=== PATIENT | male | born 1950 | race Caucasian/White ===

== ENCOUNTER 2018-11-06 05:34 | Inpatient (IN) | payer BC ==
[~2018-11-06 05:34] MED LIST: BACITRACIN 15 GM TUBE TOPICAL OINTMENT TP ONE
[2018-11-06] MEDS ORDERED: MIDAZOLAM HCL 2 MG/2 ML SINGLE DOSE VIAL ONE ×2 (08:12)
[2018-11-06] MEDS ORDERED: ROCURONIUM BROMIDE 50 MG/5 ML VIAL ONE (08:22)
[2018-11-06] MEDS ORDERED: fentaNYL CITRATE 250 MCG/5 ML VIAL ONE (08:22)
[2018-11-06] MEDS ORDERED: PROPOFOL 20 ML ONE ×14 (08:27→11:31)
[2018-11-06] MEDS ORDERED: ceFAZolin SODIUM 1 GM VIAL IVPB ONE (08:35)
[2018-11-06] MEDS ORDERED: BACITRACIN 50,000 UNITS VIAL TP ONE (09:00)
[2018-11-06] MEDS ORDERED: THROMBIN (BOVINE) 5,000 UNIT VIAL TP ONE ×2 (09:00→09:04)
[2018-11-06] MEDS ORDERED: BACITRACIN 50,000 UNITS VIAL NR ONE (09:04)
[2018-11-06] MEDS ORDERED: BACITRACIN 15 GM TUBE TOPICAL OINTMENT TP ONE ×2 (10:14→12:12)
[2018-11-06] MEDS ORDERED: BACITRACIN 15 GM TUBE TOPICAL OINTMENT ONE (11:38)
--- NOTE | 2018-11-06 12:17 | OP ---
Operative Note - Note: Operative Date: 11/06/18 Pre-Operative Diagnosis: L3-4 instability, stenosis, postlaminectomy syndrome, prior L4-5 fusion Operation: Redo and expansion of laminectomies L5, L4, L3 bilaterally; takedown of prior L4-5 posterolateral fusion; harvest of autologous bone grafts ; posterior lumbar interbody and posterolateral fusion L3-4; B L3-4 11 mm interbody implants; posterolateral fusion L4-5; revomal of locking screws and rods and R L4 pedicle screw; new L3 B pedicle screws and new B 60 mm rods and locking screws; fluoroscopy for pedicle screw system placement; microdissection Findings: dense epidural fibrosis; marked L3-4 stenosis; sensitive B L4 roots; instability L3-4 Implants: [employer] Gayla-4.5 titanium system; 6.5 x 50 mm screws B L3, new B 60 mm rods; B 11x25 mm interbody implants; autologous laminar bone graft Surgeon: Willian Grant [facility] Farmworker: Erasmo Downing Anesthesiologist/LENS MAKER: Simin Silva MD Anesthesia: General Specimens Removed: L3-4 disc material Estimated Blood Loss (mls): 250 Drains & Tubes with Location: #10 BOB
[2018-11-06] MEDS ORDERED: BISACODYL 10 MG SUPP.RECT RC PRN (12:18)
[2018-11-06] MEDS ORDERED: ONDANSETRON 4 MG/2 ML VIAL IVPUSH PRN ×3 (12:18→12:58)
[2018-11-06] MEDS ORDERED: D5-1/2NS+20 MEQ KCL - 20 MEQ/1,000 ML INFUS.BAG IV SCH (12:30)
[2018-11-06] MEDS ORDERED: DEXAMETHASONE SOD PHOSPHATE 4 MG/1 ML VIAL IVPUSH PRN (12:58)
[2018-11-06] MEDS ORDERED: PROMETHAZINE HCL 25 MG/1 ML VIAL IVPB PRN (12:58)
[2018-11-06] MEDS ORDERED: LACTATED RINGERS SOLUTION 1,000 ML IV SCH (13:00)
--- NOTE | 2018-11-06 13:00 | PN ---
Progress Note (short form) - Note Progress Note: NEUROSURGERY In PACU AF, VSS Urine cloudy Drain with minimal output Incisional pain CV- RR; Lungs- CTA; Abd- benign B UE/LE at least 4/5 Dressing intact VALUE STREAM LEADER for pain Urine culture Findings and pt progress d/w
[2018-11-06] MEDS ORDERED: HYDROmorphone HCl 2 MG/ML VIAL ONE (13:04)
[2018-11-06] MEDS: HYDROmorphone *PCA* 10MG/50ML DISP.SYRIN PCA SCH ×2 (13:30→17:03)
[2018-11-06 14:55] LABS: HEMATOCRIT 33.6 % (35.4-49); HEMOGLOBIN 11.3 GM/dL (11.7-16.9); MCH 34.9 pg (25.7-33.7); MCHC 33.7 g/dl (32.0-35.9); MEAN CELL VOLUME 103.8 fl (80-96); MEAN PLT VOLUME 7.7 fl (7.5-11.1); PLATELET COUNT 189 K/MM3 (134-434); RBC 3.24 M/mm3 (4.00-5.60); RDW 12.9 % (11.9-15.9); WHITE BLOOD COUNT 5.7 K/mm3 (4.0-10.0)
[2018-11-06] MEDS: diazePAM 5 MG TABLET PO SCH ×2 (15:05→20:00)
[2018-11-06 15:12] LABS: ANION GAP 8 MMOL/L (8-16); BLOOD UREA NITROGEN 5 mg/dL (7-18); CALCIUM 8.4 mg/dL (8.5-10.1); CHLORIDE 99 mmol/L (98-107); CO2 29 mmol/L (21-32); CREATININE 0.6 mg/dL (0.55-1.3); GLUCOSE,RANDOM 118 mg/dL (74-106); POTASSIUM 3.7 mmol/L (3.5-5.1); SODIUM 136 mmol/L (136-145)
[2018-11-06] MEDS: D5-1/2NS+20 MEQ KCL - 20 MEQ/1,000 ML INFUS.BAG IV SCH (17:02)
[2018-11-06] MEDS: DOCUSATE SODIUM 100 MG CAPSULE (FP) PO SCH ×2 (17:02→23:05)
[2018-11-06] MEDS: CEFAZOLIN 1 GM/D5W 1 GM/50 ML BAG IVPB SCH (17:35)
[2018-11-06] MEDS: metoPROLOL SUCCINATE 25 MG TAB.SR.24H (FP) PO SCH (23:05)
[2018-11-07] MEDS: CEFAZOLIN 1 GM/D5W 1 GM/50 ML BAG IVPB SCH ×4 (02:12→17:33)
[2018-11-07] MEDS: diazePAM 5 MG TABLET PO SCH ×3 (04:30→23:17)
[2018-11-07] MEDS: DOCUSATE SODIUM 100 MG CAPSULE (FP) PO SCH ×3 (05:49→23:16)
[2018-11-07] MEDS ORDERED: PT OWN MED DRAWER 7, Y5N ONE (08:57)
--- NOTE | 2018-11-07 09:02 | OP ---
DATE OF OPERATION: 11/06/2018 PREOPERATIVE DIAGNOSES: 1. Prior L4-L5 fusion. 2. L3-L4 marked stenosis with spinal instability. 3. Intractable bilateral lumbar radiculopathy. POSTOPERATIVE DIAGNOSES: 1. Prior L4-L5 fusion. 2. L3-L4 marked stenosis with spinal instability. 3. Intractable bilateral lumbar radiculopathy. ATTENDING SURGEON: Willian Grant MD ASSISTANTS: 1. Milka Lewis MD 2. JERMAN Olsen ANESTHESIA: General endotracheal. ANESTHESIOLOGIST: Simin Silva MD ESTIMATED BLOOD LOSS: 250 mL. PROCEDURES PERFORMED: 1. Redo and expansion of prior laminectomies bilaterally at L5, L4 and L3, for thecal sac as well as bilateral L5, L4 and L3 nerve root decompression (71425-56 , 20983-94 and 97553-70). 2. [place] autologous laminar spinous process bone for posterolateral fusion and interbody fusion (59226). 3. Microsurgical dissection with the operative microscope and microsurgical technique (90126). 4. Posterior lumbar diskectomy L3-L4. 5. Posterolateral interbody fusion at L3-L4 (62127). 6. Removal of posterior lumbar pedicle screw fixation system (48176). 7. Redo of posterior L4-L5 posterolateral fusion after takedown of prior fusion mass (94083-22). 8. New posterior lumbar pedicle screw fixation system placement with 6.5 x 50- mm screws from [employer] (Gayla-4.5 titanium system with 6.5 x 50-mm screws at L3 bilaterally, new 60-mm rods from L3 to L5 and new locking screws and removal of right L4 pedicle screw). (52746) 9. Intraoperative fluoroscopy for localization and pedicle screw placement (47488-06). 10. Utilization of intervertebral 11 x 25-mm device from [employer] (07579) . FINDINGS: 1. Dense epidural fibrosis. 2. Irritable bilateral L4 nerve root. 3. Highly unstable L3-L4 segment. INDICATIONS: The patient is a 68-year-old male with intractable lower back pain and bilateral lumbar radiculopathy. Because of his intractable symptoms and failure of conservative treatment, he is now consented for lumbar decompression and fusion at L3-L4 level. He had previously undergone lumbar fusion at L4-L5 approximately 5 years earlier, with a good result. He now has stenosis at the L3-L4 level, with associated instability. CONSENT: The risks of the procedure include but are not limited to bleeding, infection, dural tear with CSF leak, neurological injury, increased thromboembolic risks and other risks of general anesthesia. The patient understands the indications for the procedure, the procedure in detail, the risks and benefits, and alternative treatments for his lumbar condition, and wishes to proceed. No guarantees were given for a favorable outcome. Because of the redo nature of the surgery, the risks are higher, and the patient understands that. Preoperative medical clearance was obtained. DESCRIPTION OF PROCEDURE: After the patient was taken to the operating room, he was placed in the supine position. After general anesthesia was induced and appropriate lines were placed, local anesthesia was obtained at the L3 level. All pressure points were checked and padded. Care was taken to turn him into the prone position because of his prior orthopedic surgeries of the shoulders and the knees. The lumbar region was cleaned with alcohol and prepped with Betadine. The prior incision was used, in addition to approximately 1-1/2-inch cephalad extension to get to L3. Subperiosteal dissection was carried out with a periosteal elevator and monopolar electrocautery. Dense paraspinal fibrosis was encountered. Self retaining retractors were inserted. The prior implant system from L4 to L5 was skeletonized with monopolar electrocautery and periosteal elevator. The fusion mass needed to be taken down with an osteotome at L4-L5 in order for the pedicle screw system to be revised. After this was done, L3 spinous process and lamina were skeletonized similarly. The spinous process at L3 and bilateral L3 lamina were removed with a Leksell rongeur and a high-speed pneumatic drill. Facetectomy was performed at L3-4. The laminectomies at L4 and L5 were skeletonized and expanded with curettes, Kerrison rongeurs as well as the high-speed pneumatic drill to decompress the lateral recess. Bilateral L4 and L5 in addition to L3 roots were decompressed. Bilateral L4 nerve roots were sensitive to nearby bipolar electrocautery and mechanical stimulation. Baseline SSEP (latency) signals were delayed in both upper and lower extremities. At this point, dense epidural fibrosis was cleared with microsurgical techniques with use of microscope. Number 15 blade was used to incise the disc annulus under gentle left L4 nerve root retraction. The disk space was cleared with scraper from 6 to 11 mm. A 12-mm interbody distractor was used. Our attention turned to the right-sided disk space at L3-4. Scraper were used to remove disc material and curettes were used to clear the disk space and the high-speed pneumatic drill was used to decorticate the lateral surface of the hypophyseal joint. An 11 x 25-mm interbody implant was sized and countersunk by about 5 mm. The procedure was repeated from the left side. More disk material was removed and cleaned with curettes. The central portion of the disk space was packed with autologous morcellized bone graft and bone dust. The bone graft was morcellized with bone mill. Another 11 x 25-mm implant was then inserted and countersunk by about 3 to 4 mm on the left side. At this point, locking screws from the L4 and L5 implants were removed and the rods were further mobilized with the high-speed pneumatic drill and osteotome, after taking down the fusion mass at L4-L5. he microscope was used for this portion of the procedure for both illumination and magnification. Microsurgical techniques were utilized. New bilateral pedicle screws were placed at L3 bilaterally. High-speed pneumatic drill and a handheld awl was used to create a path for the pedicle screw with a medial angle of approximately 8 degrees. The screw holes were then tapped, and 6.5 x 50-mm screws were used at L3 bilaterally. The right L4 pedicle screw was deemed to be too medial to be connected to the new system. It was then removed. New 60 mm rods were placed bilaterally. Locking screws were applied. The screws were compressed prior to final tightening to compress the interbody implants at L3-L4. A torque wrench and counter torque wrench were used for final tightening. Final lateral and AP fluoroscopic imaging was obtained. The new pedicle screw fixation system placement was inserted under EMG and lateral fluoroscopic guidance. At this point, posterolateral surface at L3-L4 and L4-L5 were decorticated. The L3-L4 level was packed with autologous bone graft and then the L4-L5 level was similarly packed. The wound was irrigated with antibiotic irrigation. A Valsalva maneuver was performed, and there was no CSF leak. A thin layer of DuraSeal was laid in the epidural space as an adhesion barrier. Paraspinal hemostasis was obtained with monopolar electrocautery. The dorsal lumbar fascia was then closed with 0 Vicryl suture, after a 10 flat BOB drain was laid in the epidural space. Subcutaneous fascia was closed with 3-0 Vicryl suture and the skin was closed with 4-0 Vicryl running subcuticular suture. Steri-Strips and a sterile wound dressing were applied. The drain came out through a separate stab incision on the right side. The patient tolerated the procedure well. He was turned back to a supine position, and extubated. He was moving bilateral upper and lower extremities well in Recovery. All needle and lap counts were correct. The OR time-out procedure was followed. The patient received one dose of 1 g of Ancef prior to his incision. SSEP and EMG signals remained stable throughout. The EMG thresholds of the L3 pedicle screws were over 20 milliamps. The was updated with intraoperative findings and patient's postop condition. Wilmer [id number] cc: MILKA LEWIS M.D. MTDD
[2018-11-07] MEDS: MULTIVITAMINS THER W-MINERALS COMBO TABLET (FP) PO SCH (09:04)
--- NOTE | 2018-11-07 09:24 | PN ---
Progress Note (short form) - Note Progress Note: NEUROSURGERY POD #1 Tmax 98.5, AF, VSS Drain- 140 cc Incisional pain CV- RR; Lungs- CTA; Abd- benign B UE/LE 5/5 Dressing intact- moderate drainage - changed Labs reviewed and satisfactory; WBC 5.7, Hgb 11.3 CLINICAL RESEARCH ASSISTANT for pain Urine culture pending OOB with brace Keep vaelncia till tomorrow Cont drain Cont CLINICAL RESEARCH ASSISTANT Cont iv abx Adv diet Findings d/w pt
--- NOTE | 2018-11-07 11:28 | PN ---
Progress Note (short form) - Note Progress Note: ANESTHESIOLOGY POST-OP CHECK 68M s/p PLIF L3-L5 under general anesthesia, POD #1. No acute complaints. Pain 3 -5/10 and tolerable. Denies N/V, tolerating PO, ambulating. Vital Signs Temperature 98.3 F 11/07/18 05:00 Pulse Rate 96 H 11/07/18 05:00 Respiratory Rate 20 11/07/18 05:00 Blood Pressure 118/56 L 11/07/18 05:00 O2 Sat by Pulse Oximetry (%) 100 11/06/18 15:00 Active Medications Acetaminophen (Tylenol -) 650 mg PO Q6H PRN PRN Reason: FEVER Bisacodyl (Dulcolax Suppository -) 10 mg RC DAILY PRN PRN Reason: CONSTIPATION Dexamethasone Sodium Phosphate (Decadron Injection -) 4 mg IVPUSH ONCE PRN PRN Reason: NAUSEA AND/OR VOMITING Diazepam (Valium -) [address] [facility] Last Admin: 11/07/18 04:30 Dose: Not Given Diphenhydramine HCl (Benadryl Injection -) 12.5 mg IVPUSH ONCE PRN PRN Reason: FOR ITCHING Docusate Sodium (Colace -) [address] [facility] Last Admin: 11/07/18 05:49 Dose: 100 mg Hydromorphone HCl (Dilaudid Pack Worker Supervisor -) 10 mg BLENDER/BRAZE APPLICATOR BLENDER/BRAZE APPLICATOR [facility]; Protocol Stop: 11/13/18 12:58 Last Admin: 11/06/18 17:03 Dose: Not Given Potassium Chloride/Dextrose/Sod Cl (D5-1/2ns+20 Meq Kcl -) 20 meq in 1,000 mls @ 100 mls/hr IV ASDIR [facility]O Last Admin: 11/06/18 17:02 Dose: Not Given Cefazolin Sodium (Ancef 1 Gm Premixed Ivpb -) 1 gm in 50 mls @ 100 mls/hr IVPB Q8H-IV [facility] Last Admin: 11/07/18 11:26 Dose: Not Given Metoprolol Succinate (Toprol Xl -) 12.[address] [facility] Last Admin: 11/06/18 23:05 Dose: 12.5 mg Multivitamins/Minerals (Theragran-M) [address] [facility] Last Admin: 11/07/18 09:04 Dose: 1 each Ondansetron HCl (Zofran Injection) 4 mg IVPUSH Q6H PRN PRN Reason: NAUSEA AND/OR VOMITING Ondansetron HCl (Zofran Injection) 4 mg IVPUSH Q4H PRN PRN Reason: NAUSEA AND/OR VOMITING Last Admin: 11/07/18 09:03 Dose: 4 mg Promethazine HCl (Phenergan Injection -) 12.5 mg IVPB Q6H PRN PRN Reason: NAUSEA AND/OR VOMITING Last Admin: 11/06/18 23:38 Dose: 12.5 mg Gen: awake, alert, NAD. No apparent anesthesia complications, pain well controlled with dilaudid BLENDER/BRAZE APPLICATOR. Tolerating PO diet. - Start PO pain meds as per primary team - D/C BLENDER/BRAZE APPLICATOR - Continue management as per primary team.
[2018-11-07] MEDS: HYDROmorphone *PCA* 10MG/50ML DISP.SYRIN PCA SCH (13:55)
[2018-11-07] MEDS: D5-1/2NS+20 MEQ KCL - 20 MEQ/1,000 ML INFUS.BAG IV SCH (13:57)
--- NOTE | 2018-11-07 17:18 | PATH ---
Surgical Pathology Report Patient Name: ANURAG MEEHAN JR Med. Rec. #: [id number] /Age/Gender: 1950 (Age: 68) / M Account: [id number] Location: [facility] MED/SURG Taken: 11/06/2018 Received: 11/06/2018 Reported: 11/07/2018 Physicians: Willian Grant M.D. Specimen(s) Received A: DISC L3-4 B: REMOVED L4-5 INSTRUMENTATION Clinical History Spinal stenosis, lumbar degenerate claudication Final Diagnosis A. L3-4 DISC, DISCECTOMY: CARTILAGINOUS TISSUE WITH DEGENERATIVE CHANGE. B. REMOVED L4-5 INSTRUMENTATION: AIRPORT SALES AGENT, GROSS EXAMINATION ONLY. Electronically Signed Too [place] M.D. Gross Description A. Received in formalin labeled "L3-4 disc," is a 2.7 x 2.4 x 0.3 cm aggregate of mathews fragments of fibrocartilaginous tissue. The specimen is entirely submitted in one cassette. B. Received fresh labeled "removed L4-5 instrumentation," are 2 vargas metallic bent rods measuring 3.5 cm in length and 0.4 cm in diameter. Also received within the same container are 4 vargas metallic screws measuring 0.8 cm in diameter and 0.4 cm in length. No soft tissue is present. No sections are submitted, gross only. 11/06/201811/06/2018
[2018-11-07] MEDS: metoPROLOL SUCCINATE 25 MG TAB.SR.24H (FP) PO SCH (23:17)
[2018-11-08] MEDS: CEFAZOLIN 1 GM/D5W 1 GM/50 ML BAG IVPB SCH ×3 (01:58→18:09)
[2018-11-08] MEDS: D5-1/2NS+20 MEQ KCL - 20 MEQ/1,000 ML INFUS.BAG IV SCH ×2 (02:00→18:11)
[2018-11-08] MEDS: DOCUSATE SODIUM 100 MG CAPSULE (FP) PO SCH ×3 (06:11→21:20)
[2018-11-08] MEDS: diazePAM 5 MG TABLET PO SCH ×3 (06:11→20:31)
--- NOTE | 2018-11-08 08:53 | PN ---
Progress Note (short form) - Note Progress Note: NEUROSURGERY POD #1 Tmax 98.5, AF, VSS Drain- 40 cc, d/c'd Incisional pain CV- RR; Lungs- CTA; Abd- benign B UE/LE /5 Dressing intact- moderate drainage - changed BROADCAST TRANSMITTER OPERATOR for pain OOB with brace D/C valencia Cont drain Cont BROADCAST TRANSMITTER OPERATOR Cont iv abx Adv diet
[2018-11-08] MEDS: MULTIVITAMINS THER W-MINERALS COMBO TABLET (FP) PO SCH (09:53)
[2018-11-08] MEDS: HYDROmorphone *PCA* 10MG/50ML DISP.SYRIN PCA SCH ×2 (18:26→20:03)
[2018-11-08] MEDS: metoPROLOL SUCCINATE 25 MG TAB.SR.24H (FP) PO SCH (21:20)
[2018-11-09] MEDS: CEFAZOLIN 1 GM/D5W 1 GM/50 ML BAG IVPB SCH ×3 (01:14→17:50)
[2018-11-09] MEDS: diazePAM 5 MG TABLET PO SCH ×3 (04:38→22:44)
[2018-11-09] MEDS: DOCUSATE SODIUM 100 MG CAPSULE (FP) PO SCH ×3 (05:05→22:43)
[2018-11-09] MEDS: D5-1/2NS+20 MEQ KCL - 20 MEQ/1,000 ML INFUS.BAG IV SCH ×2 (06:43→12:31)
--- NOTE | 2018-11-09 07:45 | PN ---
Progress Note (short form) - Note Progress Note: NEUROSURGERY POD #3 Tmax 99.4, AF, VSS Incisional pain Hoang out, able to void CV- RR; Lungs- CTA; Abd- benign B UE/LE 5/5 inc DF/PF/Quad; sensation- intact LT Dressing intact- less drainage - changed with RN LOGGING ENGINEER for pain OOB with brace Cont LOGGING ENGINEER until current vial done then po CBC in AM Cont iv abx, if afebrile today, d/c in AM Regular diet
[2018-11-09] MEDS: MULTIVITAMINS THER W-MINERALS COMBO TABLET (FP) PO SCH (10:21)
[2018-11-09] MEDS: metoPROLOL SUCCINATE 25 MG TAB.SR.24H (FP) PO SCH (22:44)
[2018-11-10] MEDS: CEFAZOLIN 1 GM/D5W 1 GM/50 ML BAG IVPB SCH ×3 (01:31→17:01)
[2018-11-10] MEDS: diazePAM 5 MG TABLET PO SCH ×3 (06:26→23:46)
[2018-11-10] MEDS: DOCUSATE SODIUM 100 MG CAPSULE (FP) PO SCH ×3 (06:26→23:47)
[2018-11-10 07:26] LABS: BASO % 0.3 % (0-2.0); EOS % 0.2 % (0-4.5); HEMATOCRIT 29.8 % (35.4-49); HEMOGLOBIN 10.1 GM/dL (11.7-16.9); MCHC 33.8 g/dl (32.0-35.9); MEAN CELL VOLUME 103.6 fl (80-96); MEAN PLT VOLUME 7.9 fl (7.5-11.1); MONO % 13.9 % (3.8-10.2); NEUT % 73.6 % (42.8-82.8); PLATELET COUNT 245 K/MM3 (134-434); RBC 2.88 M/mm3 (4.00-5.60); RDW 12.2 % (11.9-15.9); WHITE BLOOD COUNT 9.8 K/mm3 (4.0-10.0)
[2018-11-10] MEDS: MULTIVITAMINS THER W-MINERALS COMBO TABLET (FP) PO SCH (09:30)
--- NOTE | 2018-11-10 10:03 | PN ---
Progress Note (short form) - Note Progress Note: NEUROSURGERY POD #4 Tmax 98.7, AF, VSS Incisional pain CV- RR; Lungs- CTA; Abd- benign; Ext- no sign of DVT B UE/LE 5/5 inc DF/PF/Quad; sensation- intact LT Dressing intact- more drainage again- cleaned with betadine and new dressing applied WBC 9.8, Hgb 10.1 OOB with brace Cont iv abx Regular diet Advised pt to take it slowly rather than rapid movements he is making Observe wound LSO brace mandatory when OOB If persistent drainage would need to explore surgically
[2018-11-10] MEDS: oxyCODONE HCL 5 MG TABLET PO PRN (13:12)
--- NOTE | 2018-11-10 14:48 | PN ---
Progress Note (short form) - Note Progress Note: NEUROSURGERY POD #4 AF, VSS Incisional pain CV- RR; Lungs- CTA; Abd- benign; Ext- no sign of DVT B UE/LE 5/5 inc DF/PF/Quad; sensation- intact LT more drainage top edge > bottom edge- cleaned with betadine and new dressing applied Cont iv abx NPO OR for emergency exploration Pros and cons, risks and benefits discussed Given persistent drainage the safest thing is to explore, debridement, and place lumbar drain if indicated
[2018-11-10] MEDS ORDERED: ONDANSETRON 4 MG/2 ML VIAL IVPUSH PRN ×2 (15:58→20:24)
[2018-11-10] MEDS ORDERED: LACTATED RINGERS SOLUTION 1,000 ML IV SCH (16:00)
[2018-11-10 18:09] LABS: ALBUMIN 2.4 g/dl (3.4-5.0); ALK PHOS 70 U/L (45-117); ANION GAP 9 MMOL/L (8-16); BILIRUBIN,TOTAL 0.7 mg/dL (0.2-1); BLOOD UREA NITROGEN 6 mg/dL (7-18); CALCIUM 8.4 mg/dL (8.5-10.1); CHLORIDE 89 mmol/L (98-107); CO2 32 mmol/L (21-32); CREATININE 0.6 mg/dL (0.55-1.3); GLUCOSE,RANDOM 99 mg/dL (74-106); POTASSIUM 3.7 mmol/L (3.5-5.1); SGOT/AST 19 U/L (15-37); SGPT/ALT 13 U/L (13-61); SODIUM 129 mmol/L (136-145); TOT PROT 6.3 g/dl (6.4-8.2)
[2018-11-10] MEDS ORDERED: VANCOMYCIN 1,000 MG VIAL (RESTRICTED TO ID ONLY) ONE (19:07)
[2018-11-10] MEDS ORDERED: THROMBIN (BOVINE) 5,000 UNIT VIAL TP ONE ×2 (19:13→20:10)
[2018-11-10] MEDS ORDERED: VANCOMYCIN 1,000 MG VIAL (RESTRICTED TO ID ONLY) IVPB ONE (19:15)
[2018-11-10] MEDS ORDERED: BACITRACIN 50,000 UNITS VIAL NR ONE (20:00)
[2018-11-10] MEDS ORDERED: BACITRACIN 15 GM TUBE TOPICAL OINTMENT TP ONE (21:20)
[2018-11-10] MEDS ORDERED: LORazepam 2 MG/ML SDV VIAL ONE ×4 (21:28→22:00)
[2018-11-10] MEDS ORDERED: HALOPERIDOL LACTATE 5 MG/ML IM ONE (21:29)
[2018-11-10] MEDS ORDERED: LORazepam 2 MG/ML SDV VIAL IVPUSH ONE ×3 (21:31→22:33)
[2018-11-10] MEDS ORDERED: PROPOFOL 200 MG/20 ML VIAL IVPUSH ONE (21:33)
[2018-11-10] MEDS ORDERED: PROPOFOL 1,000,000 MCG/100 ML VIAL ONE (21:34)
--- NOTE | 2018-11-10 21:37 | OP ---
Operative Note - Note: Operative Date: 11/10/18 Pre-Operative Diagnosis: postlaminectomy syndrome; wound drainage; s/p L3-L5 fusion Operation: Re-exlporation of B L3,L4, L5 laminectomies and prior fusion, debridement/irrigation with 3 L pulse jet linotype operator (vanco and bacitracin), placement of lumbar drain L1-2; microsurgical dissection Findings: Paraspinal and epidural cloudy fluid, no johnathan purulent material, Valsalva x3 with no clear sign of current CSF drainage Post-Operative Diagnosis: Same as Pre-op Surgeon: Willian Grant Anesthesiologist/CONSULTING ACTUARY: Mattie Medina Anesthesia: General Specimens Removed: epidural fluid, CSF Estimated Blood Loss (mls): 50 Drains & Tubes with Location: #10 BOB to bulb; lumbar drain to drain 10 cc/hr; instructions given to RN's Operative Report Dictated: Yes
[2018-11-10] MEDS ORDERED: D5-1/2NS+20 MEQ KCL - 1,000 ML IV SCH (21:45)
[2018-11-10] MEDS ORDERED: D5-1/2NS+20 MEQ KCL - 20 MEQ/1,000 ML INFUS.BAG IV SCH (21:45)
[2018-11-10] MEDS ORDERED: HYDROmorphone *PCA* 10MG/50ML DISP.SYRIN PCA SCH (22:00)
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
[2018-11-10] MEDS ORDERED: LORazepam 2 MG/ML SDV VIAL IVPUSH PRN (22:33)
[2018-11-10 22:46] LABS: BF GLUCOSE (CSF ONLY) 58 mg/dL (40-70)
[2018-11-10 22:57] LABS: CSF APPEARANCE CLEAR; CSF COLOR COLORLESS; CSF WBC 5
[2018-11-10 23:06] LABS: HEMATOCRIT 28.2 % (35.4-49); HEMOGLOBIN 10.2 GM/dL (11.7-16.9); MCHC 36.2 g/dl (32.0-35.9); MEAN CELL VOLUME 102.3 fl (80-96); MEAN PLT VOLUME 7.6 fl (7.5-11.1); PLATELET COUNT 278 K/MM3 (134-434); RBC 2.76 M/mm3 (4.00-5.60); RDW 12.2 % (11.9-15.9); WHITE BLOOD COUNT 6.7 K/mm3 (4.0-10.0)
[2018-11-10 23:26] LABS: ANION GAP 9 MMOL/L (8-16); BLOOD UREA NITROGEN 5 mg/dL (7-18); CALCIUM 7.8 mg/dL (8.5-10.1); CHLORIDE 92 mmol/L (98-107); CO2 29 mmol/L (21-32); CREATININE 0.7 mg/dL (0.55-1.3); GLUCOSE,RANDOM 120 mg/dL (74-106); POTASSIUM 3.3 mmol/L (3.5-5.1); SODIUM 130 mmol/L (136-145)
[2018-11-10] MEDS: metoPROLOL SUCCINATE 25 MG TAB.SR.24H (FP) PO SCH (23:49)
[2018-11-10] MEDS: D5-NS + 20 MEQ KCL - 20 MEQ/1,000 ML INFUS.BAG IV SCH (23:50)
[2018-11-10] MEDS: KCL 10 MEQ IVPB 10 MEQ/100 ML INFUS.BAG IVPB SCH (23:58)
[2018-11-11] MEDS: KCL 10 MEQ IVPB 10 MEQ/100 ML INFUS.BAG IVPB SCH (01:39)
[2018-11-11] MEDS: CEFAZOLIN 1 GM/D5W 1 GM/50 ML BAG IVPB SCH ×2 (01:42→09:18)
[2018-11-11] MEDS: diazePAM 5 MG TABLET PO SCH ×4 (04:21→23:49)
[2018-11-11] MEDS: DOCUSATE SODIUM 100 MG CAPSULE (FP) PO SCH ×3 (05:28→22:30)
[2018-11-11 06:01] LABS: HEMATOCRIT 29.6 % (35.4-49); HEMOGLOBIN 10.1 GM/dL (11.7-16.9); MCH 35.3 pg (25.7-33.7); MCHC 34.2 g/dl (32.0-35.9); MEAN CELL VOLUME 103.3 fl (80-96); MEAN PLT VOLUME 7.3 fl (7.5-11.1); PLATELET COUNT 278 K/MM3 (134-434); RBC 2.86 M/mm3 (4.00-5.60); RDW 12.2 % (11.9-15.9); WHITE BLOOD COUNT 6.1 K/mm3 (4.0-10.0)
[2018-11-11 06:27] LABS: ALBUMIN 2.2 g/dl (3.4-5.0); ALK PHOS 63 U/L (45-117); ANION GAP 8 MMOL/L (8-16); BILIRUBIN,TOTAL 0.4 mg/dL (0.2-1); BLOOD UREA NITROGEN 4 mg/dL (7-18); CHLORIDE 94 mmol/L (98-107); CO2 31 mmol/L (21-32); CREATININE 0.7 mg/dL (0.55-1.3); GLUCOSE,RANDOM 144 mg/dL (74-106); MAGNESIUM 1.4 mg/dL (1.8-2.4); PHOSPHOROUS 4.7 mg/dL (2.5-4.9); POTASSIUM 3.8 mmol/L (3.5-5.1); SGOT/AST 20 U/L (15-37); SGPT/ALT 12 U/L (13-61); SODIUM 132 mmol/L (136-145); TOT PROT 5.7 g/dl (6.4-8.2)
--- NOTE | 2018-11-11 07:51 | PN ---
Progress Note (short form) - Note Progress Note: ANESTHESIOLOGY POST-OP CHECK 68M s/p washout (of previous PLIF L3-L5) under general anesthesia, POD #1. No acute complaints. Denies pain currently aside from wrist restraints. Denies N/V. Vital Signs Temperature 97.4 F L 11/11/18 06:00 Pulse Rate 84 11/11/18 06:00 Respiratory Rate 19 11/11/18 06:00 Blood Pressure 152/78 11/11/18 06:00 O2 Sat by Pulse Oximetry (%) 100 11/11/18 04:30 Active Medications Acetaminophen (Tylenol -) 650 mg PO Q6H PRN PRN Reason: FEVER Bisacodyl (Dulcolax Suppository -) 10 mg RC DAILY PRN PRN Reason: CONSTIPATION Dexamethasone Sodium Phosphate (Decadron Injection -) 4 mg IVPUSH ONCE PRN PRN Reason: NAUSEA AND/OR VOMITING Last Admin: 11/09/18 01:05 Dose: 4 mg Diazepam (Valium -) 5 mg PO Q8H [facility] Last Admin: 11/11/18 04:21 Dose: Not Given Diphenhydramine HCl (Benadryl Injection -) 12.5 mg IVPUSH ONCE PRN PRN Reason: FOR ITCHING Docusate Sodium (Colace -) 100 mg PO TID [facility] Last Admin: 11/11/18 05:28 Dose: Not Given Fentanyl (Sublimaze Injection -) 50 mcg IVPUSH Q5M PRN PRN Reason: PAIN-PACU ORDER X 4 DOSES ONLY Cefazolin Sodium (Ancef 1 Gm Premixed Ivpb -) 1 gm in 50 mls @ 100 mls/hr IVPB Q8H-IV [facility] Last Admin: 11/11/18 01:42 Dose: 100 mls/hr Dextrose/Sodium Chloride (Dextrose 5%-Normal Saline+20 Meq Kcl -) 20 meq in 1, 000 mls @ 100 mls/hr IV ASDIR [facility] Last Admin: 11/10/18 23:50 Dose: 100 mls/hr Lorazepam (Ativan Injection -) 1 mg IVPUSH Q2H PRN PRN Reason: ANXIETY Lorazepam (Ativan Injection -) 2 mg IVPUSH Q1H PRN PRN Reason: AGITATION Last Admin: 11/11/18 04:20 Dose: 2 mg Metoprolol Succinate (Toprol Xl -) 12.5 mg PO HS [facility] Last Admin: 11/10/18 23:49 Dose: Not Given Multivitamins/Minerals (Theragran-M) 1 each PO DAILY [facility] Last Admin: 11/10/18 09:30 Dose: 1 each Ondansetron HCl (Zofran Injection) 4 mg IVPUSH Q6H PRN PRN Reason: NAUSEA AND/OR VOMITING Ondansetron HCl (Zofran Injection) 4 mg IVPUSH Q4H PRN PRN Reason: NAUSEA AND/OR VOMITING Oxycodone HCl (Roxicodone -) 5 mg PO Q4H PRN PRN Reason: PAIN LEVEL 4 - 6 Last Admin: 11/10/18 13:12 Dose: 5 mg Promethazine HCl (Phenergan Injection -) 12.5 mg IVPB Q6H PRN PRN Reason: NAUSEA AND/OR VOMITING Last Admin: 11/06/18 23:38 Dose: 12.5 mg Vancomycin HCl (Vancomycin (Pre-Docked)) 1,000 mg IVPB BID [facility]; Protocol Stop: 11/11/18 22:01 Gen: awake, alert, NAD. No apparent anesthesia complications, pain well controlled without HOSPITAL MEDICAL ASSISTANT. - Start PO pain meds as per primary team - D/C HOSPITAL MEDICAL ASSISTANT - Continue management as per primary team.
[2018-11-11] MEDS: oxyCODONE HCL 5 MG TABLET PO PRN ×3 (08:23→22:28)
--- NOTE | 2018-11-11 08:41 | PN ---
Progress Note (short form) - Note Progress Note: NEUROSURGERY POD #1 In ICU at bedside On Vanco overnight Tmax 97.7, AF, VSS, O2 sat 100% Lumbar drain 30 cc only through the night Incisional pain CV- RR; Lungs- CTA; Abd- benign; Ext- no sign of DVT B UE/LE 5/5; sensation- intact LT grossly Some irrigation fluid on drain exit site; dressing changed WBC 6.1, Hgb 10.1 CSF (from lumbar drain insertion in OR)- glucose 58, protein 50, CSF gram stain negative, 5 WBC, 35 RBC Cont iv abx Pain meds and valium Findings d/w and pt Check wound gram stain and cultures CSF drain x24 hours prophylactically, though no clear CSF fistula detected intra -operatively despite multiple valsalva's Otherwise plan d/c lumbar drain on 11/12 Monitor wound drain output ID consult, care discussed IV abx coverage for now
[2018-11-11] MEDS: MULTIVITAMINS THER W-MINERALS COMBO TABLET (FP) PO SCH (09:18)
--- NOTE | 2018-11-11 09:51 | EKG ---
Test Reason : Blood Pressure : / mmHG Vent. Rate : 079 BPM Atrial Rate : 079 BPM P-R Int : 164 ms QRS Dur : 144 ms QT Int : 466 ms P-R-T Axes : 057 034 -07 degrees QTc Int : 534 ms NORMAL SINUS RHYTHM LEFT BUNDLE BRANCH BLOCK ABNORMAL ECG WHEN COMPARED WITH ECG OF 21-OCT-2018 10:40, VENT. RATE HAS DECREASED Confirmed by SHILA ARNOLD MD ([id number]) on 11/11/2018 9:51:10 AM Referred By: Confirmed By:SHILA ARNOLD MD
--- NOTE | 2018-11-11 09:52 | CON.ID ---
Consult Consult Specialty:: infectious disease Referred by:: dr grant Reason for Consultation:: postop wound infection - History of Present Illness Chief Complaint: wound drainage History of Present Illness: 68 yo man admitted for 11/06 after lumbar spine surgery he originally had surgery for spinal stenosis in 2014 and was readmitted for L5/ L4, L3 laminectomy on 11/06 he developed drainage from the surgical wound and was taken back to the OR last night for exploration no purulence was found, cultures were sent, no csf leak was noted a lumbar drain and csf drain were placed no fevers no leukocytosis he was on ancef perioperatively and was started on vancomycin last night currently alert - History Source History Provided By: Patient, Family Member Limitations to Obtaining History: Clinical Condition - Past Medical History Cardio/Vascular: Yes: HTN, Hyperlipdemia Musculoskeletal: Yes: Chronic low back pain - Past Surgical History Past Surgical History: Yes: Cholecystectomy, Joint Replacement Additional Surgical History: bilateral shoulder replacements 2007, left TKR. 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 History of Recent Travel: No Home Medications - Allergies Allergies/Adverse Reactions: Allergies Allergy/AdvReac Type Severity Reaction Status Date / Time No Known Allergies Allergy Verified 12/30/14 06:55 - Home Medications Home Medications: Ambulatory Orders Multivitamin with Minerals [Multiple Vitamin] 1 each PO DAILY 07/01/13 Acetaminophen [Tylenol .Regular Strength -] 650 mg PO Q6H PRN #0 tablet Tramadol HCl 50 mg PO QID PRN 08/07/13 Vitamin B Complex/Vit B12 [B Complex with B-12 Drops Sl] 1,200 mcg PO DAILY 11/07 Metoprolol Succinate [Toprol XL -] 12.5 mg PO HS 12/30/14 Family Disease History - Family Disease History Family History: Denies Review of Systems - Review of Systems Constitutional: reports: No Symptoms. denies: Chills, Fever Eyes: reports: No Symptoms HENT: reports: No Symptoms Neck: reports: No Symptoms Cardiovascular: reports: No Symptoms. denies: Chest Pain Respiratory: reports: No Symptoms. denies: Cough Gastrointestinal: reports: No Symptoms. denies: Abdominal Pain Genitourinary: reports: No Symptoms Physical Exam Vital Signs: Vital Signs Temperature 97.4 F L 11/11/18 06:00 Pulse Rate 80 11/11/18 08:00 Respiratory Rate 18 11/11/18 09:00 Blood Pressure 137/75 11/11/18 08:00 O2 Sat by Pulse Oximetry (%) 100 11/11/18 09:00 Constitutional: Yes: Well Nourished, No Distress, Calm Eyes: Yes: Conjunctiva Clear, EOM Intact HENT: Yes: Atraumatic, Normocephalic Neck: Yes: Supple, Trachea Midline Cardiovascular: Yes: Regular Rate and Rhythm Respiratory: Yes: Regular, CTA Bilaterally Gastrointestinal: Yes: Normal Bowel Sounds, Soft ...Rectal Exam: Yes: Deferred Renal/: No: Hoang Present Extremities: Yes: WNL Edema: No Wound/Incision: Yes: Other (incision intact, no erythema or drainage csf drain clear lumbar drain, serous fluid) Psychiatric: Yes: Alert, Oriented Labs: CBC, BMP 11/11/18 05:00 11/11/18 05:00 Microbiology 11/10/18 21:00 Cerebral Spinal Fluid - Lumbar Puncture Gram Stain - Preliminary 11/06/18 15:00 Urine - Urine Hoang Urine Culture - Final NO GROWTH OBTAINED Imaging - Results X-ray: Report Reviewed, Image Reviewed Problem List - Problems (1) Wound drainage Code(s): T14.8XXA - OTHER INJURY OF UNSPECIFIED BODY REGION, INITIAL ENCOUNTER (2) S/P lumbar laminectomy Code(s): Z98.890 - OTHER SPECIFIED POSTPROCEDURAL STATES Assessment/Plan s/p drainage not clincally c/w infection, very early postop, no fevers or leukocytosis but also no csf leak cannot r/o infection at this time vancomycin/cefepime pending gram stain and cultures d/w Dr Grant d/w at bedside
[2018-11-11] MEDS ORDERED: CEFEPIME HCL/D5W 1 GM/50 ML BAG IVPB SCH (10:00)
[2018-11-11] MEDS ORDERED: VANCOMYCIN 1 GRAM (PRE-DOCKED) 1,000 MG/250 ML BAG IVPB SCH (10:00)
[2018-11-11 11:51] VITALS: BMI 23.3
--- NOTE | 2018-11-11 12:04 | PN ---
Physical Exam: SUBJECTIVE: Patient seen and examined at bed side , agitation over night post op tretaed with ativan and haldol denies any fever, chills, CP, sob Lumbar drain 30 cc only through the night OBJECTIVE: Vital Signs Period Temp Pulse Resp BP Sys/Tan Pulse Ox Last 24 Hr 97.3 F-98.4 F 73-112 10-27 109-152/55-98 88-100 GENERAL: AAOx3 in AND , was confused in early AM HEAD: NC/AT ENT:MMM NECK: Trachea midline, full range of motion, supple. anterior surgery sight covered with gauze LUNGS: CTA B/L ,no accessory muscle use. HEART: RRR ABDOMEN: Soft, nontender, nondistended, normoactive bowel sounds, EXTREMITIES: 2+ pulses, warm, well-perfused, no edema. NEUROLOGICAL: Cranial nerves II through XII grossly intact. Normal speech, strength 5/5 , sensation intact , tingling in right hand fingers PSYCH: episode of agitation SKIN: Warm, dry, normal turgor, Laboratory Results - last 24 hr 11/10/18 11/10/18 11/10/18 17:00 22:20 22:40 WBC 6.7 RBC 2.76 L Hgb 10.2 L Hct 28.2 L MCV 102.3 H MCH 37.0 H MCHC 36.2 H RDW 12.2 Plt Count 278 MPV 7.6 Sodium 129 L Potassium 3.7 Chloride 89 L Carbon Dioxide 32 Anion Gap 9 BUN 6 L Creatinine 0.6 Creat Clearance w eGFR > 60 Random Glucose 99 Calcium 8.4 L Phosphorus Magnesium Total Bilirubin 0.7 AST 19 ALT 13 Alkaline Phosphatase 70 Total Protein 6.3 L Albumin 2.4 L CSF Appearance Clear CSF Color Colorless CSF WBC 5 CSF RBC 35 CSF Neutrophils No Result Required. CSF Lymphocytes No Result Required. CSF Eosinophils No Result Required. CSF Basophils No Result Required. CSF Macrophages No Result Required. CSF Plasma Cells No Result Required. CSF Diff Comment No Result Required. CSF Comment No Result Required. CSF Glucose 58 CSF Total Protein 50 H 11/10/18 11/11/18 11/11/18 22:40 05:00 05:00 WBC 6.1 RBC 2.86 L Hgb 10.1 L Hct 29.6 L MCV 103.3 H MCH 35.3 H MCHC 34.2 RDW 12.2 Plt Count 278 MPV 7.3 L Sodium 130 L 132 L Potassium 3.3 L 3.8 Chloride 92 L 94 L Carbon Dioxide 29 31 Anion Gap 9 8 BUN 5 L 4 L Creatinine 0.7 0.7 Creat Clearance w eGFR > 60 > 60 Random Glucose 120 H 144 H Calcium 7.8 L 8.0 L Phosphorus 4.7 Magnesium 1.4 L Total Bilirubin 0.4 AST 20 ALT 12 L Alkaline Phosphatase 63 Total Protein 5.7 L Albumin 2.2 L CSF Appearance CSF Color CSF WBC CSF RBC CSF Neutrophils CSF Lymphocytes CSF Eosinophils CSF Basophils CSF Macrophages CSF Plasma Cells CSF Diff Comment CSF Comment CSF Glucose CSF Total Protein Active Medications Generic Name Dose Route Start Last Admin Trade Name Freq PRN Reason Stop Dose Admin Acetaminophen 650 mg 11/06/18 12:18 Tylenol - PO Q6H PRN FEVER Bisacodyl 10 mg 11/06/18 12:18 Dulcolax Suppository - RC DAILY PRN CONSTIPATION Dexamethasone Sodium Phosphate 4 mg 11/06/18 12:58 11/09/18 01:05 Decadron Injection - IVPUSH 4 mg ONCE PRN Administration NAUSEA AND/OR VOMITING Diazepam 5 mg 11/11/18 08:29 11/11/18 08:35 Valium - PO 5 mg Q8H [facility] Administration Diphenhydramine HCl 12.5 mg 11/10/18 20:24 Benadryl Injection - IVPUSH ONCE PRN FOR ITCHING Docusate Sodium 100 mg 11/06/18 14:00 11/11/18 05:28 Colace - PO Not Given TID [facility] Fentanyl 50 mcg 11/10/18 15:58 Sublimaze Injection - IVPUSH Q5M PRN PAIN-PACU ORDER X 4 DOSES ONLY Dextrose/Sodium Chloride 20 meq in 1,000 mls @ 100 mls/hr 11/10/18 23:45 23:50 Dextrose 5%-Normal Saline+20 Meq Kcl - IV 100 mls/hr ASDIR [facility]O Administration Vancomycin HCl 1,250 mg/ 250 mls @ 166.667 mls/hr 11/11/18 22:00 Dextrose IVPB Q12H [facility] Protocol Cefepime HCl 2 gm/ Dextrose 100 mls @ 200 mls/hr 11/11/18 18:00 IVPB Q8H-IV [facility] Protocol Lorazepam 1 mg 11/10/18 21:53 Ativan Injection - IVPUSH Q2H PRN ANXIETY Lorazepam 2 mg 11/10/18 22:33 11/11/18 04:20 Ativan Injection - IVPUSH 2 mg Q1H PRN Administration AGITATION Metoprolol Succinate 12.5 mg 11/06/18 22:00 11/10/18 23:49 Toprol Xl - PO Not Given HS [facility] Multivitamins/Minerals 1 each 11/07/18 10:00 11/11/18 09:18 Theragran-M PO 1 each DAILY [facility] Administration Ondansetron HCl 4 mg 11/10/18 15:58 Zofran Injection IVPUSH Q6H PRN NAUSEA AND/OR VOMITING Ondansetron HCl 4 mg 11/10/18 20:24 Zofran Injection IVPUSH Q4H PRN NAUSEA AND/OR VOMITING Oxycodone HCl 5 mg 11/09/18 11:25 11/11/18 08:23 Roxicodone - PO 5 mg Q4H PRN Administration PAIN LEVEL 4 - 6 Promethazine HCl 12.5 mg 11/06/18 12:58 11/06/18 23:38 Phenergan Injection - IVPB 12.5 mg Q6H PRN Administration NAUSEA AND/OR VOMITING CBC, BMP 11/11/18 05:00 11/11/18 05:00 ASSESSMENT/PLAN: 68M s/p Re-exlporation of B L3,L4, L5 laminectomies and prior fusion, debridement/irrigation with 3 L pulse jet solar pv installer (vanco and bacitracin), placement of lumbar drain L1-2, now with post-laminectomy syndrome and wound drainage. Neuro #s/p redo L3-L5 laminectomies/fusion, POD# 1 * Tmax 97.7, AF, VSS, O2 sat 100% * no csf leakage ,plan d/c lumbar drain on 11/12 per surgery * f/u cultures * s/p drainage , picture does not go with infection no wbx , no fever , * cont abx empiric: vancomycin/cefepime pending gram stain and cultures * pain control * incentive spirometry * aspiration precautions * IVF #Altered Mental Status, improved * minimize sedative agents * IV fluids * frequent orientation , * improved by end of the day /electrolytes #Hyponatremia * mild, cont to monitor * IV fluids CV #HTN * resume home meds #Hyperlipidemia * resume home meds #Paroxysmal Atrial Fibrillation * in SR , rate controled * Hold AC in term of recent surgery # DVT prophylaxis: SCds # Dispo * continue ICU monitoring Visit type - Emergency Visit Emergency Visit: No - New Patient This patient is new to me today: Yes Date on this admission: 11/12/18 - Critical Care Critical Care patient: Yes Total Critical Care Time (in minutes): 45 Critical Care Statement: The care of this patient involved high complexity decision making to prevent further life threatening deterioration of the patient 's condition and/or to evaluate & treat vital organ system(s) failure or risk of failure. - Discharge Referral Referred to [facility] Med [facility].: No
--- NOTE | 2018-11-11 12:51 | PN ---
Teaching Attending Note Name of Resident: Derrick Henry ATTENDING PHYSICIAN STATEMENT I saw and evaluated the patient. I reviewed the resident's note and discussed the case with the resident. I agree with the resident's findings and plan as documented. SUBJECTIVE: Pt seen and examined in the ICU. Periods of agitation overnight. No fevers recorded. Lumbar drain in place. OBJECTIVE: Vital Signs Period Temp Pulse Resp BP Sys/Tan Pulse Ox Last 24 Hr 97.3 F-98.4 F 72-112 10-27 109-152/55-98 88-100 Intake & Output 11/08/18 11/09/18 11/10/18 11/11/18 23:59 23:59 23:59 23:59 Intake Total 1869 1815 1080 956 Output Total 2900 2200 2235 485 Balance -1037 -385 -0307 471 Weight 80.286 kg Gen: somnolent but arousable Heart: RRR Lung: decreased breath sounds at the bases Abd: soft, nontender Ext: no edema BOB drain with serosanguinous fluid Lumbar drain clear CBC, BMP 11/11/18 05:00 11/11/18 05:00 Active Medications Acetaminophen (Tylenol -) 650 mg PO Q6H PRN PRN Reason: FEVER Bisacodyl (Dulcolax Suppository -) 10 mg RC DAILY PRN PRN Reason: CONSTIPATION Dexamethasone Sodium Phosphate (Decadron Injection -) 4 mg IVPUSH ONCE PRN PRN Reason: NAUSEA AND/OR VOMITING Last Admin: 11/09/18 01:05 Dose: 4 mg Diazepam (Valium -) 5 mg PO Q8H [facility] Last Admin: 11/11/18 08:35 Dose: 5 mg Diphenhydramine HCl (Benadryl Injection -) 12.5 mg IVPUSH ONCE PRN PRN Reason: FOR ITCHING Docusate Sodium (Colace -) 100 mg PO TID [facility] Last Admin: 11/11/18 05:28 Dose: Not Given Fentanyl (Sublimaze Injection -) 50 mcg IVPUSH Q5M PRN PRN Reason: PAIN-PACU ORDER X 4 DOSES ONLY Dextrose/Sodium Chloride (Dextrose 5%-Normal Saline+20 Meq Kcl -) 20 meq in 1, 000 mls @ 100 mls/hr IV ASDIR [facility] Last Admin: 11/10/18 23:50 Dose: 100 mls/hr Vancomycin HCl 1,250 mg/ (Dextrose) 250 mls @ 166.667 mls/hr IVPB Q12H [facility]; Protocol Cefepime HCl 2 gm/ Dextrose 100 mls @ 200 mls/hr IVPB Q8H-IV [facility]; Protocol Lorazepam (Ativan Injection -) 1 mg IVPUSH Q2H PRN PRN Reason: ANXIETY Lorazepam (Ativan Injection -) 2 mg IVPUSH Q1H PRN PRN Reason: AGITATION Last Admin: 11/11/18 04:20 Dose: 2 mg Metoprolol Succinate (Toprol Xl -) 12.5 mg PO HS [facility] Last Admin: 11/10/18 23:49 Dose: Not Given Multivitamins/Minerals (Theragran-M) 1 each PO DAILY [facility] Last Admin: 11/11/18 09:18 Dose: 1 each Ondansetron HCl (Zofran Injection) 4 mg IVPUSH Q6H PRN PRN Reason: NAUSEA AND/OR VOMITING Ondansetron HCl (Zofran Injection) 4 mg IVPUSH Q4H PRN PRN Reason: NAUSEA AND/OR VOMITING Oxycodone HCl (Roxicodone -) 5 mg PO Q4H PRN PRN Reason: PAIN LEVEL 4 - 6 Last Admin: 11/11/18 08:23 Dose: 5 mg Promethazine HCl (Phenergan Injection -) 12.5 mg IVPB Q6H PRN PRN Reason: NAUSEA AND/OR VOMITING Last Admin: 11/06/18 23:38 Dose: 12.5 mg ASSESSMENT AND PLAN: s/p redo L3-L5 laminectomies/fusion Post Laminectomy Syndrome Altered Mental Status Hyponatremia HTN Hyperlipidemia Paroxysmal Atrial Fibrillation - continue antibiotics per ID - f/u cultures - lumbar drain per neurosurgery - pain control - incentive spirometry - aspiration precautions - IVF - DVT prophylaxis - continue ICU monitoring
[2018-11-11] MEDS: D5-NS + 20 MEQ KCL - 20 MEQ/1,000 ML INFUS.BAG IV SCH ×3 (16:43→23:47)
[2018-11-11] MEDS ORDERED: PT OWN MED DRAWER 7, Y5N ONE ×3 (17:06→22:24)
[2018-11-11] MEDS: CEFEPIME 2 GM in DEXTROSE 5%-WATER 100 ML IVPB SCH (17:10)
[2018-11-11] MEDS: metoPROLOL SUCCINATE 25 MG TAB.SR.24H (FP) PO SCH (22:28)
[2018-11-11] MEDS: VANCOMYCIN 1,250 MG in DEXTROSE 5%-WATER - 250 ML IVPB SCH (22:30)
[2018-11-12] MEDS: CEFEPIME 2 GM in DEXTROSE 5%-WATER 100 ML IVPB SCH ×3 (01:05→17:37)
[2018-11-12] MEDS: LORazepam 2 MG/ML SDV VIAL IVPUSH PRN ×2 (02:55→23:51)
[2018-11-12] MEDS: oxyCODONE HCL 5 MG TABLET PO PRN ×5 (04:33→23:27)
[2018-11-12 06:29] LABS: BASO % 0.5 % (0-2.0); EOS % 0.4 % (0-4.5); HEMATOCRIT 29.3 % (35.4-49); HEMOGLOBIN 9.9 GM/dL (11.7-16.9); LYMPH % 22.5 % (8-40); MCH 35.1 pg (25.7-33.7); MCHC 33.6 g/dl (32.0-35.9); MEAN CELL VOLUME 104.3 fl (80-96); MEAN PLT VOLUME 7.4 fl (7.5-11.1); MONO % 12.9 % (3.8-10.2); NEUT % 63.7 % (42.8-82.8); PLATELET COUNT 327 K/MM3 (134-434); RBC 2.81 M/mm3 (4.00-5.60); RDW 11.9 % (11.9-15.9); WHITE BLOOD COUNT 8.1 K/mm3 (4.0-10.0)
[2018-11-12] MEDS: DOCUSATE SODIUM 100 MG CAPSULE (FP) PO SCH ×3 (06:42→21:11)
--- NOTE | 2018-11-12 06:51 | OP ---
DATE OF OPERATION: 11/10/2018 PROCEDURE: 1. Re-exploration of prior lumbar fusion, L3 to L5 (99779). 2. Expansion and debridement of laminectomy bone edges, bilateral L3, L4, and L5 (77981-11, 23422-93, 02161-77). 3. Microsurgical dissection (18998). 4. Placement of lumbar intrathecal drain at the L1-2 level (39343). ANESTHESIA: General endotracheal. ANESTHESIOLOGIST: Mattie Medina MD ESTIMATED BLOOD LOSS: 25 mL FINDINGS: 1. Paraspinal and epidural fluid collection, slightly cloudy. 2. No sign of obvious CSF leak at the time of exploration. INDICATION: The patient is a 68-year-old male with history of L4-5 fusions, who underwent L3-4 fusion approximately 4 days earlier. On postop day number 4, his drainage increased significantly. He had no fever, but he had increasing lower back pain and drainage. Because of the increasing drainage, the patient has been consented for emergency exploration of lumbar fusion, debridement of lumbar wound, and possible expansion laminectomy to identify the source of the fluid collection. The risks of procedure include, but are not limited to, bleeding, infection, CSF leak, neurological injury, increased thromboembolic risks, and other risks of general anesthesia. The patient understands the indication for the procedure, procedure in detail, risks and benefits, as well as alternatives for treatment of his lumbar condition, and wishes to proceed. No guarantee is given for a favorable outcome. PROCEDURE IN DETAIL: After the patient was taken to the operating room, he was placed in supine position. After general anesthesia was induced and appropriate monitoring lines were placed, a Hoang catheter was inserted. Patient was then turned in the prone position on the Emir frame. All pressure points were checked and padded. Care was taken not to move the shoulders excessively because of the history of bilateral shoulder replacements. Lumbar region was cleaned with alcohol, Hibiclens, and prepped with Betadine. The skin incision was then opened with a number-10 blade. At this point, underlying fluid collection was noted. The self-retaining retractors were inserted at this time. The fascial layer suture was cut with Olivares scissors, and the suture material from both the skin, subcutaneous fascia, and deep fascia was removed. Two self-retaining retractors were inserted. With use of the operative microscope, microsurgical techniques, exploration of the epidural space was carried out. Upon inspection with the operative microscope, there was no obvious CSF fistula. Three different rounds of Valsalva maneuver with pressure up to 30-40 mmHg were carried out, and there was no active CSF leak on any of the 3 tries. Expansion laminectomy was carried out at L3, L4, and L5 bilaterally with high-speed pneumatic drill. This further exposed the traversing and exiting nerve root, and another Valsalva maneuver was performed, and there was, once again, no CSF leak. Exploration of the lateral surface of the dura as well as the posterior surface was thoroughly undertaken. At this point, the dura was covered with cottonoids and a sponge. The paraspinal tissues were debrided with 3 L of pulsejet strap machine operator automatic. A 3-L total was used. It contained both vancomycin and bacitracin. After the paraspinal tissue debridement and posterior and lateral spine surface debridement were carried out with the pulsejet strap machine operator automatic, the dura was once again exposed after removal of the cottonoids. Another Valsalva maneuver was performed, and there was no CSF leak once again. As a precaution, an intrathecal CSF drain was placed at the L1-2 level with a trocar. A lumbar drain was placed through approximately 20 from the skin. It came through a separate stab incision on the right side. It was secured with a hub and anchoring suture. Attention then turned to the epidural space once again where all dural surfaces that are visible were carefully inspected. A number 10 flat BOB drain was laid in the epidural space, which came through a separate stab incision on the right. In all, the L3, L4, and L5 nerve roots were identified and skeletonized, and there was no CSF leak from any of them. After our decompression was completed, both sides from L3 to L5, and the posterolateral surface of the spine was further explored and the implant system from L3 to L5 were both intact bilaterally. There was some loss of the posterolateral bone graft because of the pulsejet irrigation, which was expected. There was no breakdown of the instrumentation or the posterolateral surface of the bony surfaces of the spine. At this point, a thin layer of DuraSeal was laid in the epidural space as a precaution. Dorsolumbar musculature was approximated with 0 Vicryl suture, and dorsal lumbar fascia was closed with 3-0 Vicryl interrupted sutures. Subcutaneous fascia was closed with 3-0 Vicryl sutures, and the skin was closed with a 4-0 Vicryl subcuticular suture. The BOB drain was secured with a 2-0 nylon suture. A sterile occlusive dressing was applied. The patient tolerated the procedure well and was turned back to supine position and extubated. He has been on Ancef previously but received 1 extra dose of 1 g of IV vancomycin prior to incision. All needles and lap counts were correct. The OR timeout procedure was followed. The patient was moving bilateral upper and lower extremities well upon extubation. CSF sample was sent, as well as the epidural fluid culture before the wound was irrigated. KENNEDY SALTER M.D. ANNE/[id number]
[2018-11-12 07:00] LABS: ALK PHOS 58 U/L (45-117); ANION GAP 7 MMOL/L (8-16); BILIRUBIN,TOTAL 0.4 mg/dL (0.2-1); BLOOD UREA NITROGEN 4 mg/dL (7-18); CALCIUM 8.1 mg/dL (8.5-10.1); CHLORIDE 95 mmol/L (98-107); CO2 30 mmol/L (21-32); CREATININE 0.7 mg/dL (0.55-1.3); GLUCOSE,RANDOM 98 mg/dL (74-106); MAGNESIUM 1.4 mg/dL (1.8-2.4); PHOSPHOROUS 2.6 mg/dL (2.5-4.9); POTASSIUM 3.2 mmol/L (3.5-5.1); SGOT/AST 18 U/L (15-37); SGPT/ALT 13 U/L (13-61); SODIUM 132 mmol/L (136-145); TOT PROT 5.4 g/dl (6.4-8.2)
[2018-11-12] MEDS ORDERED: MAGNESIUM SULF 50% (8.12 MEQ/2 ML-1 GM VIAL) IVPB ONE (07:40)
[2018-11-12] MEDS ORDERED: KCL 10 MEQ IVPB 10 MEQ/100 ML INFUS.BAG IVPB SCH (07:45)
--- NOTE | 2018-11-12 07:58 | PN ---
Progress Note (short form) - Note Progress Note: NEUROSURGERY POD #2 In ICU at bedside On Vanco overnight Tmax 98.1, AF, VSS, O2 sat 100% Lumbar drain 90 cc Wound drain 65 cc Incisional pain CV- RR; Lungs- CTA; Abd- benign; Ext- no sign of DVT B UE/LE 5/5; sensation- intact LT grossly Some irrigation fluid on drain exit sites; dressing changed CSF (from lumbar drain insertion in OR)- glucose 58, protein 50, CSF gram stain negative, 5 WBC, 35 RBC Wound swab gram stain- negative Cont iv abx Pain meds and valium Findings d/w and pt d/c lumbar drain Monitor wound drain output ID consult appreciated IV abx coverage for now May sit up for lunch
[2018-11-12] MEDS: diazePAM 5 MG TABLET PO SCH ×3 (08:38→23:30)
[2018-11-12] MEDS: POTASSIUM CHLORIDE TABS 20 MEQ TABLET.ER (FP) PO ONE ×2 (09:00→12:58)
[2018-11-12] MEDS ORDERED: PT OWN MED DRAWER 7, Y5N ONE ×4 (09:13→21:02)
[2018-11-12] MEDS: VANCOMYCIN 1,250 MG in DEXTROSE 5%-WATER - 250 ML IVPB SCH ×2 (09:41→21:52)
--- NOTE | 2018-11-12 12:46 | PN ---
Teaching Attending Note Name of Resident: Leno Maldonado ATTENDING PHYSICIAN STATEMENT I saw and evaluated the patient. I reviewed the resident's note and discussed the case with the resident. I agree with the resident's findings and plan as documented. SUBJECTIVE: Pt seen and examined in the ICU. Lumbar drain removed. Less agitated. No fevers recorded. OBJECTIVE: Vital Signs Period Temp Pulse Resp BP Sys/Tan Pulse Ox Last 24 Hr 97.8 F-98.1 F 79-100 16-22 93-135/46-72 100-100 Intake & Output 11/09/18 11/10/18 11/11/18 11/12/18 23:59 23:59 23:59 23:59 Intake Total 1815 1080 2606 1750 Output Total 2200 2235 2105 650 Balance -385 -6964 682 0012 Weight 80.286 kg 78.727 kg Gen: NAD at rest Heart: RRR Lung: decreased breath sounds at the bases Abd: soft, nontender Ext: no edema CBC, BMP 11/12/18 05:15 11/12/18 05:15 Active Medications Acetaminophen (Tylenol -) 650 mg PO Q6H PRN PRN Reason: FEVER Bisacodyl (Dulcolax Suppository -) 10 mg RC DAILY PRN PRN Reason: CONSTIPATION Dexamethasone Sodium Phosphate (Decadron Injection -) 4 mg IVPUSH ONCE PRN PRN Reason: NAUSEA AND/OR VOMITING Last Admin: 11/09/18 01:05 Dose: 4 mg Diazepam (Valium -) 5 mg PO Q8H [facility] Last Admin: 11/12/18 08:38 Dose: 5 mg Diphenhydramine HCl (Benadryl Injection -) 12.5 mg IVPUSH ONCE PRN PRN Reason: FOR ITCHING Docusate Sodium (Colace -) 100 mg PO TID [facility] Last Admin: 11/12/18 06:42 Dose: 100 mg Dextrose/Sodium Chloride (Dextrose 5%-Normal Saline+20 Meq Kcl -) 20 meq in 1, 000 mls @ 100 mls/hr IV ASDIR [facility] Last Admin: 11/11/18 23:47 Dose: Not Given Vancomycin HCl 1,250 mg/ (Dextrose) 250 mls @ 166.667 mls/hr IVPB Q12H [facility]; Protocol Last Admin: 11/12/18 09:41 Dose: 166.667 mls/hr Cefepime HCl 2 gm/ Dextrose 100 mls @ 200 mls/hr IVPB Q8H-IV [facility]; Protocol Last Admin: 11/12/18 09:41 Dose: 200 mls/hr Lorazepam (Ativan Injection -) 1 mg IVPUSH Q2H PRN PRN Reason: ANXIETY Last Admin: 11/12/18 02:55 Dose: 1 mg Lorazepam (Ativan Injection -) 2 mg IVPUSH Q1H PRN PRN Reason: AGITATION Last Admin: 11/11/18 04:20 Dose: 2 mg Metoprolol Succinate (Toprol Xl -) 12.5 mg PO HS [facility] Last Admin: 11/11/18 22:28 Dose: 12.5 mg Multivitamins/Minerals (Theragran-M) 1 each PO DAILY [facility] Last Admin: 11/11/18 09:18 Dose: 1 each Ondansetron HCl (Zofran Injection) 4 mg IVPUSH Q6H PRN PRN Reason: NAUSEA AND/OR VOMITING Ondansetron HCl (Zofran Injection) 4 mg IVPUSH Q4H PRN PRN Reason: NAUSEA AND/OR VOMITING Oxycodone HCl (Roxicodone -) 5 mg PO Q4H PRN PRN Reason: PAIN LEVEL 4 - 6 Last Admin: 11/12/18 08:38 Dose: 5 mg Promethazine HCl (Phenergan Injection -) 12.5 mg IVPB Q6H PRN PRN Reason: NAUSEA AND/OR VOMITING Last Admin: 11/06/18 23:38 Dose: 12.5 mg ASSESSMENT AND PLAN: s/p redo L3-L5 laminectomies/fusion Post Laminectomy Syndrome Altered Mental Status improving Hyponatremia HTN Hyperlipidemia Paroxysmal Atrial Fibrillation - continue antibiotics per ID - f/u cultures - lumbar drain removed - pain control - incentive spirometry - aspiration precautions - DVT prophylaxis - can monitor on floor
[2018-11-12] MEDS: ACETAMINOPHEN 325 MG TABLET (FP) PO PRN (12:56)
[2018-11-12] MEDS: MULTIVITAMINS THER W-MINERALS COMBO TABLET (FP) PO SCH (12:57)
--- NOTE | 2018-11-12 14:06 | PN ---
Physical Exam: SUBJECTIVE: Patient seen and examined at bedside. Mental state significant improved vs. prior evaluations. Ongoing pain at surgical site, has passed flatus , no BM as yet, no complaints otherwise. OBJECTIVE: Vital Signs Period Temp Pulse Resp BP Sys/Tan Pulse Ox Last 24 Hr 97.8 F-98.1 F 79-100 16-22 93-135/46-72 100-100 GENERAL: The patient is awake, alert, and fully oriented, in no acute distress. HEAD: NC/AT EYES: pupils reactive, L>R chronically, EOMI ENT: MMM NECK: Trachea midline, full range of motion, supple. LUNGS: CTA b/l HEART: RRR no m/r/g ABDOMEN: +bs, soft, NT, ND EXTREMITIES: 2+ pulses, warm, well-perfused, no edema. 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 PSYCH: remains confused, intermittently agitated, significantly improved SKIN: Warm, dry, normal turgor, no rashes or lesions noted Laboratory Results - last 24 hr 11/12/18 11/12/18 05:15 05:15 WBC 8.1 RBC 2.81 L Hgb 9.9 L Hct 29.3 L MCV 104.3 H MCH 35.1 H MCHC 33.6 RDW 11.9 Plt Count 327 MPV 7.4 L Absolute Neuts (auto) 5.1 Neutrophils % 63.7 Lymphocytes % 22.5 D Monocytes % 12.9 H Eosinophils % 0.4 D Basophils % 0.5 Nucleated RBC % 0 Sodium 132 L Potassium 3.2 L Chloride 95 L Carbon Dioxide 30 Anion Gap 7 L BUN 4 L Creatinine 0.7 Creat Clearance w eGFR > 60 Random Glucose 98 Calcium 8.1 L Phosphorus 2.6 Magnesium 1.4 L Total Bilirubin 0.4 AST 18 ALT 13 Alkaline Phosphatase 58 Total Protein 5.4 L Albumin 2.0 L Active Medications Generic Name Dose Route Start Last Admin Trade Name Freq PRN Reason Stop Dose Admin Acetaminophen 650 mg 11/06/18 12:18 11/12/18 12:56 Tylenol - PO 650 mg Q6H PRN Administration FEVER Bisacodyl 10 mg 11/06/18 12:18 Dulcolax Suppository - RC DAILY PRN CONSTIPATION Dexamethasone Sodium Phosphate 4 mg 11/06/18 12:58 11/09/18 01:05 Decadron Injection - IVPUSH 4 mg ONCE PRN Administration NAUSEA AND/OR VOMITING Diazepam 5 mg 11/11/18 08:29 11/12/18 08:38 Valium - PO 5 mg Q8H [facility] Administration Diphenhydramine HCl 12.5 mg 11/10/18 20:24 Benadryl Injection - IVPUSH ONCE PRN FOR ITCHING Docusate Sodium 100 mg 11/06/18 14:00 11/12/18 06:42 Colace - PO 100 mg TID [facility] Administration Dextrose/Sodium Chloride 20 meq in 1,000 mls @ 100 mls/hr 11/10/18 23:45 23:47 Dextrose 5%-Normal Saline+20 Meq Kcl - IV Not Given ASDIR [facility] Vancomycin HCl 1,250 mg/ 250 mls @ 166.667 mls/hr 11/11/18 22:00 11/12/18 09: 41 Dextrose IVPB 166.667 mls/hr Q12H [facility] Administration Protocol Cefepime HCl 2 gm/ Dextrose 100 mls @ 200 mls/hr 11/11/18 18:00 11/12/18 09: 41 IVPB 200 mls/hr Q8H-IV [facility] Administration Protocol Lorazepam 1 mg 11/10/18 21:53 11/12/18 02:55 Ativan Injection - IVPUSH 1 mg Q2H PRN Administration ANXIETY Lorazepam 2 mg 11/10/18 22:33 11/11/18 04:20 Ativan Injection - IVPUSH 2 mg Q1H PRN Administration AGITATION Metoprolol Succinate 12.5 mg 11/06/18 22:00 11/11/18 22:28 Toprol Xl - PO 12.5 mg HS [facility]O Administration Multivitamins/Minerals 1 each 11/07/18 10:00 11/12/18 12:57 Theragran-M PO 1 each DAILY [facility] Administration Ondansetron HCl 4 mg 11/10/18 15:58 Zofran Injection IVPUSH Q6H PRN NAUSEA AND/OR VOMITING Ondansetron HCl 4 mg 11/10/18 20:24 Zofran Injection IVPUSH Q4H PRN NAUSEA AND/OR VOMITING Oxycodone HCl 5 mg 11/09/18 11:25 11/12/18 12:57 Roxicodone - PO 5 mg Q4H PRN Administration PAIN LEVEL 4 - 6 Promethazine HCl 12.5 mg 11/06/18 12:58 11/06/18 23:38 Phenergan Injection - IVPB 12.5 mg Q6H PRN Administration NAUSEA AND/OR VOMITING ASSESSMENT/PLAN: 68 y/o M w/ PMHx HTN, HLD, PAfib, POD 2 s/p revision/debridement of L3-L5 laminectomies. Became agitated and combative yesterday. #POD 2 s/p revision/debridement of L3-L5 laminectomies -afebrile -cont Vancomycin/Cefepime as per ID -lumbar drain d/c'd -wound drain in place -pain control w/ oxycodone PRN -cont dexamethasone, phenergan, zofran PRN -cont IVF -f/u cultures -adv diet as tolerated -incentive spirometry -PT #AMS -significant improvement -cont valium -minimize sedatives -avoid restraints if at all possible #electrolyte abnormalities -labs reviewed, lytes repleted as needed -continue to monitor #FEN -D5NS + 20meqK @ 100 -monitor and replete -sodium-controlled diet #PPx -DVT: SCDs, no pharmacologic AC -GI: not indicated #code -full #dispo -transfer to med/surg Visit type - Emergency Visit Emergency Visit: No - New Patient This patient is new to me today: Yes Date on this admission: 11/12/18 - Critical Care Critical Care patient: Yes Total Critical Care Time (in minutes): 40 Critical Care Statement: The care of this patient involved high complexity decision making to prevent further life threatening deterioration of the patient 's condition and/or to evaluate & treat vital organ system(s) failure or risk of failure.
--- NOTE | 2018-11-12 16:01 | PN ---
Progress Note (short form) - Note Progress Note: doing well no fevers wearing brace csf drain out sitting up at side of bed Vital Signs Period Temp Pulse Resp BP Sys/Tan Pulse Ox Last 24 Hr 97.7 F-98.1 F 79-100 16-22 93-130/46-72 100-100 cor-rrr lungs clear abd soft,nt ext no edema +drain CBC, BMP 11/12/18 05:15 11/12/18 05:15 Microbiology 11/10/18 22:20 Wound-Other Gram Stain - Final 11/10/18 22:20 Wound-Other Wound Culture - Preliminary NO GROWTH OBTAINED AFTER 24 HOURS INCUBATION, REINCUBATED. 11/10/18 21:00 Cerebral Spinal Fluid - Lumbar Puncture Gram Stain - Final 11/10/18 21:00 Cerebral Spinal Fluid - Lumbar Puncture CSF Culture - Preliminary 11/06/18 15:00 Urine - Urine Hoang Urine Culture - Final NO GROWTH OBTAINED a/p doing well postop gram stain no WBCs no organisms continue antibioitcs another 24 hours s/p lumbar laminectomy Problem List - Problems (1) Wound drainage Code(s): T14.8XXA - OTHER INJURY OF UNSPECIFIED BODY REGION, INITIAL ENCOUNTER (2) S/P lumbar laminectomy Code(s): Z98.890 - OTHER SPECIFIED POSTPROCEDURAL STATES
[2018-11-12] MEDS: D5-NS + 20 MEQ KCL - 20 MEQ/1,000 ML INFUS.BAG IV SCH ×2 (16:50→23:28)
[2018-11-12] MEDS: metoPROLOL SUCCINATE 25 MG TAB.SR.24H (FP) PO SCH (21:11)
[2018-11-13] MEDS: D5-NS + 20 MEQ KCL - 20 MEQ/1,000 ML INFUS.BAG IV SCH (02:32)
[2018-11-13] MEDS: CEFEPIME 2 GM in DEXTROSE 5%-WATER 100 ML IVPB SCH ×3 (02:33→17:35)
[2018-11-13] MEDS: DOCUSATE SODIUM 100 MG CAPSULE (FP) PO SCH ×3 (05:01→21:22)
[2018-11-13 06:04] LABS: BASO % 0.6 % (0-2.0); EOS % 0.8 % (0-4.5); HEMATOCRIT 29.9 % (35.4-49); HEMOGLOBIN 10.2 GM/dL (11.7-16.9); LYMPH % 16.2 % (8-40); MCH 35.3 pg (25.7-33.7); MCHC 34.3 g/dl (32.0-35.9); MEAN PLT VOLUME 7.1 fl (7.5-11.1); MONO % 15.7 % (3.8-10.2); NEUT % 66.7 % (42.8-82.8); PLATELET COUNT 373 K/MM3 (134-434); RDW 12.1 % (11.9-15.9); WHITE BLOOD COUNT 8.7 K/mm3 (4.0-10.0)
[2018-11-13 06:46] LABS: ALBUMIN 2.1 g/dl (3.4-5.0); ALK PHOS 68 U/L (45-117); ANION GAP 6 MMOL/L (8-16); BILIRUBIN,TOTAL 0.5 mg/dL (0.2-1); BLOOD UREA NITROGEN 4 mg/dL (7-18); CALCIUM 8.3 mg/dL (8.5-10.1); CHLORIDE 93 mmol/L (98-107); CO2 29 mmol/L (21-32); CREATININE 0.7 mg/dL (0.55-1.3); GLUCOSE,RANDOM 97 mg/dL (74-106); MAGNESIUM 1.4 mg/dL (1.8-2.4); PHOSPHOROUS 2.9 mg/dL (2.5-4.9); POTASSIUM 4.1 mmol/L (3.5-5.1); SGOT/AST 18 U/L (15-37); SGPT/ALT 13 U/L (13-61); SODIUM 128 mmol/L (136-145); TOT PROT 5.6 g/dl (6.4-8.2)
[2018-11-13] MEDS: oxyCODONE HCL 5 MG TABLET PO PRN ×4 (07:33→23:33)
[2018-11-13] MEDS: diazePAM 5 MG TABLET PO SCH ×3 (07:35→23:33)
[2018-11-13] MEDS ORDERED: MAGNESIUM SULF 50% (8.12 MEQ/2 ML-1 GM VIAL) IVPB ONE (08:03)
--- NOTE | 2018-11-13 09:08 | PN ---
Physical Exam: SUBJECTIVE: Patient seen and examined at bedside. Mental state significantly improved. Ongoing pain at surgical site, no complaints otherwise. Affirms good urination, flatus, and BMs. OBJECTIVE: Vital Signs Period Temp Pulse Resp BP Sys/Tan Pulse Ox Last 24 Hr 97.7 F-98.1 F 80-107 14-24 91-129/38-96 100-100 GENERAL: The patient is awake, alert, and fully oriented, in no acute distress. HEAD: NC/AT EYES: pupils reactive, L>R chronically, EOMI ENT: MMM NECK: Trachea midline, full range of motion, supple. LUNGS: CTA b/l HEART: RRR no m/r/g ABDOMEN: +bs, soft, NT, ND EXTREMITIES: 2+ pulses, warm, well-perfused, no edema. 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 PSYCH: confusion resolved, appropriate mood SKIN: Warm, dry, normal turgor, no rashes or lesions noted Laboratory Results - last 24 hr 11/13/18 11/13/18 05:30 05:30 WBC 8.7 RBC 2.90 L Hgb 10.2 L Hct 29.9 L MCV 103.0 H MCH 35.3 H MCHC 34.3 RDW 12.1 Plt Count 373 MPV 7.1 L Absolute Neuts (auto) 5.8 Neutrophils % 66.7 Lymphocytes % 16.2 D Monocytes % 15.7 H Eosinophils % 0.8 D Basophils % 0.6 Nucleated RBC % 0 Sodium 128 L Potassium 4.1 Chloride 93 L Carbon Dioxide 29 Anion Gap 6 L BUN 4 L Creatinine 0.7 Creat Clearance w eGFR > 60 Random Glucose 97 Calcium 8.3 L Phosphorus 2.9 Magnesium 1.4 L Total Bilirubin 0.5 AST 18 ALT 13 Alkaline Phosphatase 68 Total Protein 5.6 L Albumin 2.1 L Active Medications Generic Name Dose Route Start Last Admin Trade Name Freq PRN Reason Stop Dose Admin Acetaminophen 650 mg 11/06/18 12:18 11/12/18 12:56 Tylenol - PO 650 mg Q6H PRN Administration FEVER Bisacodyl 10 mg 11/06/18 12:18 Dulcolax Suppository - RC DAILY PRN CONSTIPATION Dexamethasone Sodium Phosphate 4 mg 11/06/18 12:58 11/09/18 01:05 Decadron Injection - IVPUSH 4 mg ONCE PRN Administration NAUSEA AND/OR VOMITING Diazepam 5 mg 11/11/18 08:29 11/13/18 07:35 Valium - PO 5 mg Q8H LILO Administration Diphenhydramine HCl 12.5 mg 11/10/18 20:24 Benadryl Injection - IVPUSH ONCE PRN FOR ITCHING Docusate Sodium 100 mg 11/06/18 14:00 11/13/18 05:01 Colace - PO 100 mg TID [facility]ILO Administration Dextrose/Sodium Chloride 20 meq in 1,000 mls @ 100 mls/hr 11/10/18 23:45 02:32 Dextrose 5%-Normal Saline+20 Meq Kcl - IV Not Given ASDIR LILO Vancomycin HCl 1,250 mg/ 250 mls @ 166.667 mls/hr 11/11/18 22:00 11/12/18 21: 52 Dextrose IVPB 166.667 mls/hr Q12H [facility] Administration Protocol Cefepime HCl 2 gm/ Dextrose 100 mls @ 200 mls/hr 11/11/18 18:00 11/13/18 02: 33 IVPB 200 mls/hr Q8H-IV [facility]O Administration Protocol Lorazepam 1 mg 11/10/18 21:53 11/12/18 23:51 Ativan Injection - IVPUSH 1 mg Q2H PRN Administration ANXIETY Lorazepam 2 mg 11/10/18 22:33 11/11/18 04:20 Ativan Injection - IVPUSH 2 mg Q1H PRN Administration AGITATION Metoprolol Succinate 12.5 mg 11/06/18 22:00 11/12/18 21:11 Toprol Xl - PO 12.5 mg HS LILO Administration Multivitamins/Minerals 1 each 11/07/18 10:00 11/12/18 12:57 Theragran-M PO 1 each DAILY [facility]O Administration Ondansetron HCl 4 mg 11/10/18 15:58 Zofran Injection IVPUSH Q6H PRN NAUSEA AND/OR VOMITING Ondansetron HCl 4 mg 11/10/18 20:24 Zofran Injection IVPUSH Q4H PRN NAUSEA AND/OR VOMITING Oxycodone HCl 5 mg 11/09/18 11:25 11/13/18 07:33 Roxicodone - PO 5 mg Q4H PRN Administration PAIN LEVEL 4 - 6 Promethazine HCl 12.5 mg 11/06/18 12:58 11/06/18 23:38 Phenergan Injection - IVPB 12.5 mg Q6H PRN Administration NAUSEA AND/OR VOMITING ASSESSMENT/PLAN: 68 y/o M w/ PMHx HTN, HLD, PAfib, POD 3 s/p revision/debridement of L3-L5 laminectomies #POD 3 s/p revision/debridement of L3-L5 laminectomies -afebrile -cont Vancomycin/Cefepime as per ID -lumbar drain d/c'd -wound drain in place -pain control w/ oxycodone PRN -cont dexamethasone, phenergan, zofran PRN -IVF interrupted overnight, mild worsening of hyponatremia -cont IVF w/ D51/2NS + 20 meqK -no growth on cultures -incentive spirometry -PT #hyponatremia -serum/urine osm and urine sodium pending -cont IVF w/ D51/2NS + 20 meqK #AMS -resolved -cont valium -minimize sedatives -avoid restraints if at all possible #electrolyte abnormalities -labs reviewed, lytes repleted as needed -continue to monitor #FEN -D5NS + 20meqK @ 100 -monitor and replete -sodium-controlled diet #PPx -DVT: SCDs, no pharmacologic AC -GI: not indicated #code -full #dispo -transfer to med/surg Visit type - Emergency Visit Emergency Visit: No - New Patient This patient is new to me today: No - Critical Care Critical Care patient: Yes Total Critical Care Time (in minutes): 40 Critical Care Statement: The care of this patient involved high complexity decision making to prevent further life threatening deterioration of the patient 's condition and/or to evaluate & treat vital organ system(s) failure or risk of failure.
[2018-11-13] MEDS: MULTIVITAMINS THER W-MINERALS COMBO TABLET (FP) PO SCH (10:05)
[2018-11-13] MEDS ORDERED: PT OWN MED DRAWER 7, Y5N ONE ×3 (10:07→21:08)
[2018-11-13] MEDS: VANCOMYCIN 1,250 MG in DEXTROSE 5%-WATER - 250 ML IVPB SCH ×2 (10:47→23:33)
--- NOTE | 2018-11-13 11:32 | PN ---
Progress Note (short form) - Note Progress Note: NEUROSURGERY POD #3 In ICU at bedside Some incisional pain L hip discomfort No sciatica any more On Vanco and Cefepime for past 48+ hrs Tmax 98.2, AF, VSS, O2 sat 100% Wound drain 50 cc yesterday, 35 cc today Incisional pain CV- RR; Lungs- CTA; Abd- benign; Ext- no sign of DVT B UE/LE 5/5; sensation- intact LT grossly Some blood tinged fluid on drain exit sites; dressing changed Wound swab gram stain and culture- negative Cont iv abx till am Pain meds and valium Care d/w and pt Monitor wound drain output ID consult appreciated, care d/w ID May be OOB with brace
--- NOTE | 2018-11-13 11:58 | PN ---
Progress Note (short form) - Note Progress Note: doing well no fevers wearing brace csf drain out llumbar drain being removed Vital Signs Period Temp Pulse Resp BP Sys/Tan Pulse Ox Last 24 Hr 97.7 F-98.2 F 82-107 14-24 91-129/38-96 100-100 cor-rrr lungs clear abd soft,nt surgical wound some serous drainage no erythema ext no edema CBC, BMP 11/13/18 05:30 11/13/18 05:30 Microbiology 11/10/18 22:20 Wound-Other Gram Stain - Final 11/10/18 22:20 Wound-Other Wound Culture - Final NO GROWTH OF AEROBIC ORGANISMS AFTER 48 HOURS INCUBATION 11/10/18 21:00 Cerebral Spinal Fluid - Lumbar Puncture Gram Stain - Final 11/10/18 21:00 Cerebral Spinal Fluid - Lumbar Puncture CSF Culture - Final 11/06/18 15:00 Urine - Urine Hoang Urine Culture - Final NO GROWTH OBTAINED a/p doing well postop gram stain no WBCs no organisms d/w Dr Grant drains out continue antibiotics another 24 hours s/p lumbar laminectomy Problem List - Problems (1) Wound drainage Code(s): T14.8XXA - OTHER INJURY OF UNSPECIFIED BODY REGION, INITIAL ENCOUNTER (2) S/P lumbar laminectomy Code(s): Z98.890 - OTHER SPECIFIED POSTPROCEDURAL STATES
--- NOTE | 2018-11-13 12:34 | PN ---
Teaching Attending Note Name of Resident: Leno Maldonado ATTENDING PHYSICIAN STATEMENT I saw and evaluated the patient. I reviewed the resident's note and discussed the case with the resident. I agree with the resident's findings and plan as documented. SUBJECTIVE: Pt seen and examined in the ICU. Pain controlled. Minimal drainage from BOB drain. Mental status back to baseline. OBJECTIVE: Vital Signs Period Temp Pulse Resp BP Sys/Tan Pulse Ox Last 24 Hr 97.7 F-98.2 F 88-107 14-24 91-133/38-96 100-100 Intake & Output 11/10/18 11/11/18 11/12/18 11/13/18 23:59 23:59 23:59 23:59 Intake Total 1080 2606 3500 2000 Output Total 2235 2105 1580 1835 Balance -8227 729 0313 165 Weight 80.286 kg 78.727 kg 81.278 kg Gen: NAD in chair Heart: RRR Lung: decreased breath sounds at the bases Abd: soft, nontender Ext: no edema CBC, BMP 11/13/18 05:30 11/13/18 05:30 Active Medications Acetaminophen (Tylenol -) 650 mg PO Q6H PRN PRN Reason: FEVER Last Admin: 11/12/18 12:56 Dose: 650 mg Bisacodyl (Dulcolax Suppository -) 10 mg RC DAILY PRN PRN Reason: CONSTIPATION Dexamethasone Sodium Phosphate (Decadron Injection -) 4 mg IVPUSH ONCE PRN PRN Reason: NAUSEA AND/OR VOMITING Last Admin: 11/09/18 01:05 Dose: 4 mg Diazepam (Valium -) 5 mg PO Q8H [facility] Last Admin: 11/13/18 07:35 Dose: 5 mg Diphenhydramine HCl (Benadryl Injection -) 12.5 mg IVPUSH ONCE PRN PRN Reason: FOR ITCHING Docusate Sodium (Colace -) 100 mg PO TID [facility] Last Admin: 11/13/18 05:01 Dose: 100 mg Dextrose/Sodium Chloride (Dextrose 5%-Normal Saline+20 Meq Kcl -) 20 meq in 1, 000 mls @ 100 mls/hr IV ASDIR [facility] Last Admin: 11/13/18 02:32 Dose: Not Given Vancomycin HCl 1,250 mg/ (Dextrose) 250 mls @ 166.667 mls/hr IVPB Q12H [facility]; Protocol Last Admin: 11/13/18 10:47 Dose: 166.667 mls/hr Cefepime HCl 2 gm/ Dextrose 100 mls @ 200 mls/hr IVPB Q8H-IV [facility]; Protocol Last Admin: 11/13/18 10:07 Dose: 200 mls/hr Lorazepam (Ativan Injection -) 1 mg IVPUSH Q2H PRN PRN Reason: ANXIETY Last Admin: 11/12/18 23:51 Dose: 1 mg Lorazepam (Ativan Injection -) 2 mg IVPUSH Q1H PRN PRN Reason: AGITATION Last Admin: 11/11/18 04:20 Dose: 2 mg Metoprolol Succinate (Toprol Xl -) 12.5 mg PO HS [facility] Last Admin: 11/12/18 21:11 Dose: 12.5 mg Multivitamins/Minerals (Theragran-M) 1 each PO DAILY [facility] Last Admin: 11/13/18 10:05 Dose: 1 each Ondansetron HCl (Zofran Injection) 4 mg IVPUSH Q6H PRN PRN Reason: NAUSEA AND/OR VOMITING Ondansetron HCl (Zofran Injection) 4 mg IVPUSH Q4H PRN PRN Reason: NAUSEA AND/OR VOMITING Oxycodone HCl (Roxicodone -) 5 mg PO Q4H PRN PRN Reason: PAIN LEVEL 4 - 6 Last Admin: 11/13/18 07:33 Dose: 5 mg Promethazine HCl (Phenergan Injection -) 12.5 mg IVPB Q6H PRN PRN Reason: NAUSEA AND/OR VOMITING Last Admin: 11/06/18 23:38 Dose: 12.5 mg ASSESSMENT AND PLAN: s/p redo L3-L5 laminectomies/fusion Post Laminectomy Syndrome Altered Mental Status improving Hyponatremia HTN Hyperlipidemia Paroxysmal Atrial Fibrillation - continue antibiotics per ID - pain control - incentive spirometry - send urine sodium osms, serum osms - aspiration precautions - DVT prophylaxis - can monitor on floor
[2018-11-13] MEDS ORDERED: oxyCODONE HCL 5 MG TABLET ONE (18:00)
[2018-11-13] MEDS: metoPROLOL SUCCINATE 25 MG TAB.SR.24H (FP) PO SCH (21:22)
[2018-11-14] MEDS: CEFEPIME 2 GM in DEXTROSE 5%-WATER 100 ML IVPB SCH ×4 (01:20→17:10)
[2018-11-14] MEDS: D5-NS + 20 MEQ KCL - 20 MEQ/1,000 ML INFUS.BAG IV SCH (01:22)
[2018-11-14] MEDS: DOCUSATE SODIUM 100 MG CAPSULE (FP) PO SCH ×3 (05:51→22:57)
[2018-11-14 06:44] LABS: ANION GAP 8 MMOL/L (8-16); BLOOD UREA NITROGEN 6 mg/dL (7-18); CALCIUM 8.5 mg/dL (8.5-10.1); CHLORIDE 90 mmol/L (98-107); CO2 30 mmol/L (21-32); CREATININE 0.8 mg/dL (0.55-1.3); GLUCOSE,RANDOM 89 mg/dL (74-106); MAGNESIUM 1.5 mg/dL (1.8-2.4); POTASSIUM 4.2 mmol/L (3.5-5.1); SODIUM 128 mmol/L (136-145)
[2018-11-14 06:47] LABS: BASO % 0.9 % (0-2.0); EOS % 1.9 % (0-4.5); HEMATOCRIT 27.9 % (35.4-49); HEMOGLOBIN 10.2 GM/dL (11.7-16.9); LYMPH % 18.8 % (8-40); MCH 37.4 pg (25.7-33.7); MCHC 36.7 g/dl (32.0-35.9); MEAN PLT VOLUME 7.3 fl (7.5-11.1); MONO % 20.8 % (3.8-10.2); NEUT % 57.6 % (42.8-82.8); PLATELET COUNT 430 K/MM3 (134-434); RBC 2.74 M/mm3 (4.00-5.60); RDW 12.3 % (11.9-15.9); WHITE BLOOD COUNT 8.4 K/mm3 (4.0-10.0)
--- NOTE | 2018-11-14 07:33 | PN ---
Progress Note (short form) - Note Progress Note: NEUROSURGERY POD #4 In ICU Some incisional pain L hip discomfort No sciatica any more On Vanco and Cefepime for past 72+ hrs Tmax 98.8, AF, VSS, O2 sat 100% Wound drain 115 cc yesterday, 30 cc today, drain d/c'd Incisional pain CV- RR; Lungs- CTA; Abd- benign; Ext- no sign of DVT B UE/LE 5/5; sensation- intact LT grossly Dressing completely dry; swabbed with betadine and new dressing applied AM labs pending Deep wound swab gram stain and culture- negative CSF culture negative Pain meds and valium Care d/w and pt Monitor wound drain output ID consult appreciated May be OOB with brace
[2018-11-14] MEDS ORDERED: MAGNESIUM SULF 50% (8.12 MEQ/2 ML-1 GM VIAL) IVPB ONE (08:45)
[2018-11-14] MEDS: SODIUM CHLORIDE 1,000 ML IV SCH (09:01)
[2018-11-14] MEDS ORDERED: PT OWN MED DRAWER 7, Y5N ONE ×3 (09:15→19:00)
[2018-11-14] MEDS: MULTIVITAMINS THER W-MINERALS COMBO TABLET (FP) PO SCH (09:26)
[2018-11-14] MEDS: diazePAM 5 MG TABLET PO SCH ×2 (09:26→16:27)
[2018-11-14] MEDS: ACETAMINOPHEN 325 MG TABLET (FP) PO PRN ×2 (09:37→17:06)
[2018-11-14] MEDS: VANCOMYCIN 1,250 MG in DEXTROSE 5%-WATER - 250 ML IVPB SCH (11:25)
[2018-11-14] MEDS: oxyCODONE HCL 5 MG TABLET PO PRN ×2 (11:38→17:05)
[2018-11-14] MEDS ORDERED: diphenhydrAMINE HCL 25 MG CAPSULE (FP) PO ONE (11:56)
[2018-11-14 12:16] LABS: ANISOCYTOSIS 1+; MACROCYTOSIS 1+; PLATELET ESTIMATE NORMAL
--- NOTE | 2018-11-14 12:37 | PN ---
Physical Exam: SUBJECTIVE: Patient seen and examined at bedside. Mental state significantly improved. Ongoing pain at surgical site, no complaints otherwise. Affirms good urination, flatus, and BMs. OBJECTIVE: Vital Signs Period Temp Pulse Resp BP Sys/Tan Pulse Ox Last 24 Hr 98 F-99.8 F 78-106 16-25 109-132/39-75 100-100 GENERAL: The patient is awake, alert, and fully oriented, in no acute distress. HEAD: NC/AT EYES: pupils reactive, L>R chronically, EOMI ENT: MMM NECK: Trachea midline, full range of motion, supple. LUNGS: CTA b/l HEART: RRR no m/r/g ABDOMEN: +bs, soft, NT, ND EXTREMITIES: 2+ pulses, warm, well-perfused, no edema. 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 PSYCH: confusion resolved, appropriate mood SKIN: Warm, dry, normal turgor, no rashes or lesions noted Laboratory Results - last 24 hr 11/14/18 11/14/18 05:30 05:30 WBC 8.4 RBC 2.74 L Hgb 10.2 L Hct 27.9 L MCV 102.0 H MCH 37.4 H MCHC 36.7 H RDW 12.3 Plt Count 430 MPV 7.3 L Absolute Neuts (auto) 4.8 Neutrophils % 57.6 Lymphocytes % 18.8 Monocytes % 20.8 H Eosinophils % 1.9 D Basophils % 0.9 Nucleated RBC % 0 Sodium 128 L Potassium 4.2 Chloride 90 L Carbon Dioxide 30 Anion Gap 8 BUN 6 L Creatinine 0.8 Creat Clearance w eGFR > 60 Random Glucose 89 Calcium 8.5 Phosphorus 4.0 Magnesium 1.5 L Active Medications Generic Name Dose Route Start Last Admin Trade Name Freq PRN Reason Stop Dose Admin Acetaminophen 650 mg 11/06/18 12:18 11/14/18 09:37 Tylenol - PO 650 mg Q6H PRN Administration FEVER Bisacodyl 10 mg 11/06/18 12:18 Dulcolax Suppository - RC DAILY PRN CONSTIPATION Dexamethasone Sodium Phosphate 4 mg 11/06/18 12:58 11/09/18 01:05 Decadron Injection - IVPUSH 4 mg ONCE PRN Administration NAUSEA AND/OR VOMITING Diazepam 5 mg 11/11/18 08:29 11/14/18 09:26 Valium - PO 5 mg Q8H [facility] Administration Docusate Sodium 100 mg 11/06/18 14:00 11/14/18 05:51 Colace - PO 100 mg TID LILO Administration Vancomycin HCl 1,250 mg/ 250 mls @ 166.667 mls/hr 11/11/18 22:00 11/14/18 11: 25 Dextrose IVPB 166.667 mls/hr Q12H [facility] Administration Protocol Cefepime HCl 2 gm/ Dextrose 100 mls @ 200 mls/hr 11/11/18 18:00 11/14/18 09: 25 IVPB 200 mls/hr Q8H-IV LILO Administration Protocol Sodium Chloride 1,000 mls @ 100 mls/hr 11/14/18 08:15 11/14/18 09:01 Normal Saline - IV 100 mls/hr ASDIR [facility]ILO Administration Metoprolol Succinate 12.5 mg 11/06/18 22:00 11/13/18 21:22 Toprol Xl - PO 12.5 mg HS LILO Administration Multivitamins/Minerals 1 each 11/07/18 10:00 11/14/18 09:26 Theragran-M PO 1 each DAILY LILO Administration Ondansetron HCl 4 mg 11/10/18 15:58 Zofran Injection IVPUSH Q6H PRN NAUSEA AND/OR VOMITING Ondansetron HCl 4 mg 11/10/18 20:24 Zofran Injection IVPUSH Q4H PRN NAUSEA AND/OR VOMITING Oxycodone HCl 5 mg 11/13/18 17:58 11/14/18 11:38 Roxicodone - PO 5 mg Q4H PRN Administration PAIN LEVEL 7 - 10 Promethazine HCl 12.5 mg 11/06/18 12:58 11/06/18 23:38 Phenergan Injection - IVPB 12.5 mg Q6H PRN Administration NAUSEA AND/OR VOMITING ASSESSMENT/PLAN: 68 y/o M w/ PMHx HTN, HLD, PAfib, POD 4 s/p revision/debridement of L3-L5 laminectomies #POD 4 s/p revision/debridement of L3-L5 laminectomies -afebrile -completing ABx today -lumbar drain d/c'd -wound drain d/c'd today -pain control w/ oxycodone PRN -cont dexamethasone, phenergan, zofran PRN -no growth on cultures -incentive spirometry -PT -rest of management as per NeuroSx #hyponatremia -serum/urine osm and urine sodium suggestive of SIADH -IVF w/ NS, ideally no IVF however pending NeuroSx reccs #AMS -resolved -cont valium -minimize sedatives -avoid restraints if at all possible #electrolyte abnormalities -labs reviewed, lytes repleted as needed -continue to monitor #FEN -NS @ 100 -monitor and replete -sodium-controlled diet #PPx -DVT: SCDs, no pharmacologic AC -GI: not indicated #code -full #dispo -transfer to med/surg Visit type - Emergency Visit Emergency Visit: No - New Patient This patient is new to me today: No - Critical Care Critical Care patient: Yes Total Critical Care Time (in minutes): 40 Critical Care Statement: The care of this patient involved high complexity decision making to prevent further life threatening deterioration of the patient 's condition and/or to evaluate & treat vital organ system(s) failure or risk of failure.
--- NOTE | 2018-11-14 12:40 | PN ---
Teaching Attending Note Name of Resident: Leno Maldonado ATTENDING PHYSICIAN STATEMENT I saw and evaluated the patient. I reviewed the resident's note and discussed the case with the resident. I agree with the resident's findings and plan as documented. SUBJECTIVE: Patient seen and examined in the ICU. Pain controlled. Seen by Neurosurgery this AM. Mental status back to baseline. OBJECTIVE: Intake & Output 11/11/18 11/12/18 11/13/18 11/14/18 23:59 23:59 23:59 23:59 Intake Total 2606 3500 4100 1600 Output Total 2105 1580 3665 1230 Balance 501 1920 435 370 Weight 177 lb 173 lb 9 oz 179 lb 3 oz 177 lb 3 oz Last Vital Signs Temp Pulse Resp BP Pulse Ox 99.8 F H 78 20 113/55 L 100 11/14/18 10:00 11/14/18 10:00 11/14/18 10:00 11/14/18 10:00 11/14/18 10:00 Active Medications Acetaminophen (Tylenol -) 650 mg PO Q6H PRN PRN Reason: FEVER Last Admin: 11/14/18 09:37 Dose: 650 mg Bisacodyl (Dulcolax Suppository -) 10 mg RC DAILY PRN PRN Reason: CONSTIPATION Dexamethasone Sodium Phosphate (Decadron Injection -) 4 mg IVPUSH ONCE PRN PRN Reason: NAUSEA AND/OR VOMITING Last Admin: 11/09/18 01:05 Dose: 4 mg Diazepam (Valium -) 5 mg PO Q8H LILO Last Admin: 11/14/18 09:26 Dose: 5 mg Docusate Sodium (Colace -) 100 mg PO TID LILO Last Admin: 11/14/18 05:51 Dose: 100 mg Vancomycin HCl 1,250 mg/ (Dextrose) 250 mls @ 166.667 mls/hr IVPB Q12H LILO; Protocol Last Admin: 11/14/18 11:25 Dose: 166.667 mls/hr Cefepime HCl 2 gm/ Dextrose 100 mls @ 200 mls/hr IVPB Q8H-IV LILO; Protocol Last Admin: 11/14/18 09:25 Dose: 200 mls/hr Sodium Chloride (Normal Saline -) 1,000 mls @ 100 mls/hr IV ASDIR LILO Last Admin: 12/20/18 09:01 Dose: 100 mls/hr Metoprolol Succinate (Toprol Xl -) 12.5 mg PO HS LILO Last Admin: 11/13/18 21:22 Dose: 12.5 mg Multivitamins/Minerals (Theragran-M) 1 each PO DAILY [facility] Last Admin: 11/14/18 09:26 Dose: 1 each Ondansetron HCl (Zofran Injection) 4 mg IVPUSH Q6H PRN PRN Reason: NAUSEA AND/OR VOMITING Ondansetron HCl (Zofran Injection) 4 mg IVPUSH Q4H PRN PRN Reason: NAUSEA AND/OR VOMITING Oxycodone HCl (Roxicodone -) 5 mg PO Q4H PRN PRN Reason: PAIN LEVEL 7 - 10 Last Admin: 11/14/18 11:38 Dose: 5 mg Promethazine HCl (Phenergan Injection -) 12.5 mg IVPB Q6H PRN PRN Reason: NAUSEA AND/OR VOMITING Last Admin: 11/06/18 23:38 Dose: 12.5 mg Gen: NAD in bed Heart: RRR Lung: decreased breath sounds at the bases Abd: soft, nontender Ext: no edema Laboratory Results - last 24 hr 11/14/18 11/14/18 05:30 05:30 WBC 8.4 RBC 2.74 L Hgb 10.2 L Hct 27.9 L MCV 102.0 H MCH 37.4 H MCHC 36.7 H RDW 12.3 Plt Count 430 MPV 7.3 L Absolute Neuts (auto) 4.8 Neutrophils % 57.6 Lymphocytes % 18.8 Monocytes % 20.8 H Eosinophils % 1.9 D Basophils % 0.9 Nucleated RBC % 0 Sodium 128 L Potassium 4.2 Chloride 90 L Carbon Dioxide 30 Anion Gap 8 BUN 6 L Creatinine 0.8 Creat Clearance w eGFR > 60 Random Glucose 89 Calcium 8.5 Phosphorus 4.0 Magnesium 1.5 L ASSESSMENT AND PLAN: S/P Redo L3-L5 laminectomies/fusion Post Laminectomy Syndrome Altered Mental Status improving Hyponatremia HTN Hyperlipidemia Paroxysmal Atrial Fibrillation - continue antibiotics per ID - pain control - incentive spirometry - Check urine/serum osms - aspiration precautions - DVT prophylaxis - can monitor on floor Dr Devien
[2018-11-14] MEDS ORDERED: ONDANSETRON 4 MG/2 ML VIAL IVPUSH PRN ×2 (17:43)
[2018-11-14] MEDS ORDERED: DEXAMETHASONE SOD PHOSPHATE 4 MG/1 ML VIAL IVPUSH PRN (17:43)
[2018-11-14] MEDS ORDERED: BISACODYL 10 MG SUPP.RECT RC PRN (17:43)
[2018-11-14] MEDS ORDERED: ACETAMINOPHEN 325 MG TABLET (FP) PO PRN (17:43)
[2018-11-14] MEDS ORDERED: PROMETHAZINE HCL 25 MG/1 ML VIAL IVPB PRN (17:43)
[2018-11-14] MEDS ORDERED: VANCOMYCIN 1,250 MG in DEXTROSE 5%-WATER - 250 ML IVPB SCH (22:00)
[2018-11-14] MEDS: metoPROLOL SUCCINATE 25 MG TAB.SR.24H (FP) PO SCH (22:56)
[2018-11-15] MEDS: CEFEPIME 2 GM in DEXTROSE 5%-WATER 100 ML IVPB SCH ×3 (01:44→11:35)
[2018-11-15] MEDS: DOCUSATE SODIUM 100 MG CAPSULE (FP) PO SCH ×3 (07:08→21:14)
[2018-11-15 07:34] LABS: EOS % 1.2 % (0-4.5); HEMATOCRIT 31.2 % (35.4-49); HEMOGLOBIN 11.1 GM/dL (11.7-16.9); LYMPH % 17.7 % (8-40); MCH 36.5 pg (25.7-33.7); MCHC 35.6 g/dl (32.0-35.9); MEAN CELL VOLUME 102.3 fl (80-96); MEAN PLT VOLUME 7.1 fl (7.5-11.1); MONO % 17.9 % (3.8-10.2); NEUT % 62.2 % (42.8-82.8); PLATELET COUNT 473 K/MM3 (134-434); RBC 3.05 M/mm3 (4.00-5.60); RDW 12.4 % (11.9-15.9); WHITE BLOOD COUNT 8.4 K/mm3 (4.0-10.0)
[2018-11-15 08:04] LABS: ANION GAP 8 MMOL/L (8-16); BLOOD UREA NITROGEN 7 mg/dL (7-18); CALCIUM 9.3 mg/dL (8.5-10.1); CHLORIDE 92 mmol/L (98-107); CO2 31 mmol/L (21-32); CREATININE 0.8 mg/dL (0.55-1.3); GLUCOSE,RANDOM 89 mg/dL (74-106); PHOSPHOROUS 4.1 mg/dL (2.5-4.9); POTASSIUM 5.1 mmol/L (3.5-5.1); SODIUM 131 mmol/L (136-145)
--- NOTE | 2018-11-15 08:24 | PN ---
Progress Note (short form) - Note Progress Note: NEUROSURGERY POD #5 Transferred to floor care Some incisional pain L hip discomfort No sciatica any more Tmax 99.4, AF, VSS Incisional pain CV- RR; Lungs- CTA; Abd- benign; Ext- no sign of DVT B UE/LE 5/5; sensation- intact LT grossly Dressing completely dry; swabbed with betadine and new dressing applied WBC 8.4 Deep wound swab gram stain and culture- negative CSF culture negative Pain meds and valium Care d/w and pt Monitor wound ID input appreciated PT May be OOB with brace Discharge planning
[2018-11-15] MEDS ORDERED: diphenhydrAMINE HCL 25 MG CAPSULE (FP) PO ONE (08:47)
[2018-11-15] MEDS: oxyCODONE HCL 5 MG TABLET PO PRN ×2 (11:32→17:36)
--- NOTE | 2018-11-15 11:52 | PN ---
Progress Note (short form) - Note Progress Note: doing well no fevers wearing brace drains out transferred to floor care +BM, no diarrhea Vital Signs Period Temp Pulse Resp BP Sys/Tan Pulse Ox Last 24 Hr 97.5 F-99.4 F 81-96 18-20 98-128/58-68 cor-rrr lungs clear abd +brace wound clean and dry per Dr Grant ext no edema CBC, BMP 11/15/18 07:00 11/15/18 07:00 Microbiology 11/10/18 22:20 Wound-Other Gram Stain - Final 11/10/18 22:20 Wound-Other Wound Culture - Final NO GROWTH OF AEROBIC ORGANISMS AFTER 48 HOURS INCUBATION 11/10/18 21:00 Cerebral Spinal Fluid - Lumbar Puncture Gram Stain - Final 11/10/18 21:00 Cerebral Spinal Fluid - Lumbar Puncture CSF Culture - Final 11/06/18 15:00 Urine - Urine Hoang Urine Culture - Final NO GROWTH OBTAINED a/p doing well postop gram stain no WBCs no organisms d/w Dr Grant drains out d/c antibiotics s/p lumbar laminectomy please call back if needed Problem List - Problems (1) Wound drainage Code(s): T14.8XXA - OTHER INJURY OF UNSPECIFIED BODY REGION, INITIAL ENCOUNTER (2) S/P lumbar laminectomy Code(s): Z98.890 - OTHER SPECIFIED POSTPROCEDURAL STATES
[2018-11-15] MEDS: MULTIVITAMINS THER W-MINERALS COMBO TABLET (FP) PO SCH (11:53)
[2018-11-15] MEDS: diazePAM 5 MG TABLET PO SCH ×3 (11:53→21:13)
[2018-11-15] MEDS: SODIUM CHLORIDE 1,000 ML IV SCH (13:29)
[2018-11-15] MEDS: metoPROLOL SUCCINATE 25 MG TAB.SR.24H (FP) PO SCH (21:12)
[2018-11-15] MEDS ORDERED: diphenhydrAMINE HCL 25 MG CAPSULE (FP) PO SCH (22:00)
[2018-11-16] MEDS: diazePAM 5 MG TABLET PO SCH ×2 (01:37→09:07)
[2018-11-16] MEDS: oxyCODONE HCL 5 MG TABLET PO PRN ×2 (01:38→06:36)
[2018-11-16] MEDS: DOCUSATE SODIUM 100 MG CAPSULE (FP) PO SCH (06:35)
--- NOTE | 2018-11-16 08:20 | PN ---
Progress Note (short form) - Note Progress Note: NEUROSURGERY POD #6 Some incisional pain L hip discomfort No sciatica any more Tmax 99, AF, VSS Incisional pain CV- RR; Lungs- CTA; Abd- benign; Ext- no sign of DVT B UE/LE 5/5; sensation- intact LT grossly Dressing completely dry WBC 8.4 Deep wound swab gram stain and culture- negative CSF culture negative Pain meds and valium Care d/w and pt Monitor wound PT May be OOB with brace Discharge instructions given Pt prefers to take po abx 1 week john case Benadryl at night
[2018-11-16] MEDS ORDERED: PT OWN MED DRAWER 7, Y5N ONE (09:00)
[2018-11-16] MEDS: MULTIVITAMINS THER W-MINERALS COMBO TABLET (FP) PO SCH (09:06)
[2018-11-16 11:46] VITALS: BP 126/68; PULSE 82; TEMP 98.2
== END 2018-11-16 12:14 | disposition home health service (06) | DRG 459 ==
LOC: JSAMEDAYSX 05:34 → J8W 15:37 → JICU 11-10 19:35 → J8W 11-14 17:15
PROVIDERS: ADMIT Neurological Surgery; ATTEND Neurological Surgery
PROC: 0SG10AJ Fusion of 2 or more Lumbar Vertebral Joints with Interbody Fusion Device, Posterior Approach, Anterior Column, Open Approach (ICD-10-PCS; 2018-11-06)
PROC: 01NB0ZZ Release Lumbar Nerve, Open Approach (ICD-10-PCS; 2018-11-06)
PROC: 0SB20ZZ Excision of Lumbar Vertebral Disc, Open Approach (ICD-10-PCS; 2018-11-06)
PROC: 0SB00ZZ Excision of Lumbar Vertebral Joint, Open Approach (ICD-10-PCS; 2018-11-06)
PROC: B01BZZZ Fluoroscopy of Spinal Cord (ICD-10-PCS; 2018-11-06)
PROC: 0SP00AZ Removal of Interbody Fusion Device from Lumbar Vertebral Joint, Open Approach (ICD-10-PCS; principal; 2018-11-06 08:00)
PROC: 009Y00Z Drainage of Lumbar Spinal Cord with Drainage Device, Open Approach (ICD-10-PCS; 2018-11-10)
PROC: 01NB0ZZ Release Lumbar Nerve, Open Approach (ICD-10-PCS; 2018-11-10)
DX: M48.061 Spinal stenosis, lumbar region without neurogenic claudication (principal); G95.19 Other vascular myelopathies; T81.49XA Infection following a procedure, other surgical site, initial encounter; E87.1 Hypo-osmolality and hyponatremia; M54.16 Radiculopathy, lumbar region; M53.2X6 Spinal instabilities, lumbar region; G96.19 Other disorders of meninges, not elsewhere classified; I10 Essential (primary) hypertension; E78.5 Hyperlipidemia, unspecified; I48.0 Paroxysmal atrial fibrillation; R45.1 Restlessness and agitation; Y83.8 Other surgical procedures as the cause of abnormal reaction of the patient, or of later complication, without mention of misadventure at the time of the procedure; Y92.238 Other place in hospital as the place of occurrence of the external cause; T14.8XXA Other injury of unspecified body region, initial encounter; R41.82 Altered mental status, unspecified; Z96.652 Presence of left artificial knee joint; Z96.612 Presence of left artificial shoulder joint; Z98.890 Other specified postprocedural states; Z96.611 Presence of right artificial shoulder joint
CPT/HCPCS: 36415; 72100-TC-FY; 76000-TC-FY; 80048; 80053; 82945; 83735; 83930; 83935; 84100; 84157; 84300; 85025; 85027; 86850; 86900; 86901; 87070; 87086; 87205; 88300-TC; 88304-TC; 93005; 93010; 94010; 94760; 97116-GP; 97161-GP; G0480; J7030

== ENCOUNTER 2021-06-21 15:01 | Inpatient (IN) | payer BC, OTHER ==
[2021-06-21 18:58] LABS: BASO % 0.6 % (0-2.0); HEMATOCRIT 37.5 % (35.4-49); HEMOGLOBIN 13.1 GM/dL (11.7-16.9); LYMPH % 21.4 % (8-40); MCH 35.4 pg (25.7-33.7); MEAN PLT VOLUME 8.6 fl (7.5-11.1); MONO % 18.2 % (3.8-10.2); NEUT % 59.8 % (42.8-82.8); PLATELET COUNT 151 10^3/uL (134-434); RBC 3.71 M/mm3 (4.00-5.60); RDW 13.5 % (11.9-15.9); WHITE BLOOD COUNT 4.6 K/mm3 (4.0-10.0)
[2021-06-21 19:00] LABS: CHLORIDE 80 mmol/L (98-107)
[2021-06-21 19:02] LABS: ALBUMIN 2.1 g/dl (3.4-5.0)
[2021-06-21 19:03] LABS: BLOOD UREA NITROGEN 9.5 mg/dL (7-18); CALCIUM 8.2 mg/dL (8.5-10.1); CO2 27 mmol/L (21-32); LIPASE 199 U/L (73-393)
[2021-06-21 19:04] LABS: GLUCOSE,RANDOM 89 mg/dL (74-106)
[2021-06-21 19:06] LABS: CREATININE 0.8 mg/dL (0.55-1.3); SGOT/AST 56 U/L (15-37); SGPT/ALT 22 U/L (13-61)
[2021-06-21 19:08] LABS: BILIRUBIN,TOTAL 0.5 mg/dL (0.2-1); TOT PROT 6.2 g/dl (6.4-8.2)
[2021-06-21 19:09] LABS: ALK PHOS 88 U/L (45-117)
[2021-06-21 19:13] LABS: ANION GAP 11 MMOL/L (8-16); SODIUM 119 mmol/L (136-145)
[2021-06-21] MEDS ORDERED: SODIUM CHLORIDE 0.9% 500 ML INFUS.BAG IV ONE (19:22)
[2021-06-21 19:38] LABS: EPI CELLS 3 /uL (0-25.1); HYALINE CASTS 0 /uL (0-3.1); PH,URINE 7.5 (5.0-8.0); URINE APPEARANCE CLEAR; URINE BACTERIA 26 /uL (0-1359); URINE BILIRUBIN NEGATIVE (NEGATIVE); URINE COLOR YELLOW; URINE GLUCOSE (UA) NEGATIVE (NEGATIVE); URINE KETONE TRACE (NEGATIVE); URINE LEUK ESTERASE NEGATIVE (NEGATIVE); URINE NITRITE NEGATIVE (NEGATIVE); URINE PROTEIN 3+ (NEGATIVE); URINE RBC 17 /uL (0-23.9); URINE WBC 4 /uL (0-25.8)
[2021-06-21 19:42] LABS: ANISOCYTOSIS 0; MACROCYTOSIS 0; PLATELET ESTIMATE DECREASED
[2021-06-21] MEDS ORDERED: ONDANSETRON 4 MG/2 ML VIAL IVPUSH ONE (22:04)
[2021-06-21] MEDS ORDERED: ONDANSETRON 4 MG/2 ML VIAL ONE (22:06)
[2021-06-22] MEDS ORDERED: SODIUM CHLORIDE 1,000 ML IV SCH (01:30)
[2021-06-22] MEDS: metoPROLOL SUCCINATE 25 MG TAB.SR.24H (FP) PO SCH (10:05)
[2021-06-22 15:47] LABS: COCAINE, UR NEGATIVE (NEGATIVE); URINE AMPHETAMINES NEGATIVE (NEGATIVE); URINE BENZODIAZEPINES NEGATIVE (NEGATIVE)
[2021-06-22 15:48] LABS: METHADONE, UR NEGATIVE (NEGATIVE); PHENCYCLIDINE,URINE NEGATIVE (NEGATIVE)
[2021-06-22 15:49] LABS: OPIATES, URI NEGATIVE (NEGATIVE)
[2021-06-22 15:50] LABS: URINE BARBITURATES POSITIVE (NEGATIVE)
[2021-06-22 22:06] VITALS: BMI 22.8
[2021-06-22 22:21] LABS: CALCIUM 8.1 mg/dL (8.5-10.1)
[2021-06-22 22:22] LABS: BLOOD UREA NITROGEN 8.8 mg/dL (7-18)
[2021-06-22 22:25] LABS: CREATININE 0.7 mg/dL (0.55-1.3)
[2021-06-23 01:41] LABS: CALCIUM 7.9 mg/dL (8.5-10.1)
[2021-06-23 01:42] LABS: BLOOD UREA NITROGEN 9.2 mg/dL (7-18)
[2021-06-23 01:48] LABS: CREATININE 0.7 mg/dL (0.55-1.3)
[2021-06-23 07:34] LABS: INR 1.17 (0.83-1.09); PROTHROMBIN TIME (PATIENT) 14.3 SEC (9.7-13.0)
[2021-06-23 07:43] LABS: CALCIUM 7.8 mg/dL (8.5-10.1)
[2021-06-23 07:44] LABS: ALBUMIN 1.8 g/dl (3.4-5.0); BLOOD UREA NITROGEN 9.5 mg/dL (7-18); MAGNESIUM 1.2 mg/dL (1.8-2.4)
[2021-06-23 07:47] LABS: CREATININE 0.7 mg/dL (0.55-1.3); PHOSPHOROUS 2.3 mg/dL (2.5-4.9)
[2021-06-23 07:49] LABS: BILIRUBIN,TOTAL 0.6 mg/dL (0.2-1); TOT PROT 5.5 g/dl (6.4-8.2)
[2021-06-23] MEDS ORDERED: SODIUM PHOSPHATE - 30 MM in SODIUM CHLORIDE 500 ML IVPB ONE (09:01)
[2021-06-23] MEDS ORDERED: MAGNESIUM SULF 50% (8.12 MEQ/2 ML-1 GM VIAL) IVPB ONE (09:01)
[2021-06-23] MEDS: KCL 10 MEQ IVPB 10 MEQ/100 ML INFUS.BAG IVPB SCH ×2 (11:18→16:56)
[2021-06-23] MEDS: metoPROLOL SUCCINATE 25 MG TAB.SR.24H (FP) PO SCH (11:47)
[2021-06-23] MEDS: SODIUM CHLORIDE 1,000 ML with POTASSIUM CHLORIDE 10 MEQ IV SCH (12:30)
[2021-06-23] MEDS ORDERED: KCL 10 MEQ IVPB 10 MEQ/100 ML INFUS.BAG IVPB SCH (16:30)
[2021-06-24] MEDS: metoPROLOL SUCCINATE 25 MG TAB.SR.24H (FP) PO SCH (09:04)
[2021-06-24 09:24] LABS: BASO % 0.6 % (0-2.0); EOS % 0.2 % (0-4.5); HEMATOCRIT 37.3 % (35.4-49); HEMOGLOBIN 13.4 GM/dL (11.7-16.9); LYMPH % 26.5 % (8-40); MCH 36.1 pg (25.7-33.7); MCHC 35.8 g/dl (32.0-35.9); MEAN CELL VOLUME 100.8 fl (80-96); MONO % 12.3 % (3.8-10.2); NEUT % 60.4 % (42.8-82.8); PLATELET COUNT 254 10^3/uL (134-434); RDW 13.5 % (11.9-15.9)
[2021-06-24 09:40] LABS: CHLORIDE 92 mmol/L (98-107); SODIUM 127 mmol/L (136-145)
[2021-06-24 09:49] LABS: BLOOD UREA NITROGEN 9.7 mg/dL (7-18)
[2021-06-24 09:52] LABS: CALCIUM 7.8 mg/dL (8.5-10.1); MAGNESIUM 1.5 mg/dL (1.8-2.4)
[2021-06-24 09:53] LABS: CO2 25 mmol/L (21-32); GLUCOSE,RANDOM 102 mg/dL (74-106)
[2021-06-24 09:55] LABS: CREATININE 0.7 mg/dL (0.55-1.3); SGPT/ALT 19 U/L (13-61)
[2021-06-24 09:56] LABS: PHOSPHOROUS 2.4 mg/dL (2.5-4.9); SGOT/AST 38 U/L (15-37)
[2021-06-24 09:57] LABS: TOT PROT 6.2 g/dl (6.4-8.2)
[2021-06-24 09:58] LABS: ALK PHOS 96 U/L (45-117); ANION GAP 11 MMOL/L (8-16); BILIRUBIN,TOTAL 0.6 mg/dL (0.2-1)
[2021-06-24] MEDS ORDERED: POTASSIUM CHLORIDE TABS 20 MEQ TABLET.ER (FP) PO ONE ×3 (10:23→18:00)
[2021-06-24] MEDS ORDERED: MAGNESIUM SULF 50% (8.12 MEQ/2 ML-1 GM VIAL) IVPB ONE ×2 (11:08→18:00)
[2021-06-24] MEDS ORDERED: SODIUM CHLORIDE 1,000 ML with POTASSIUM CHLORIDE 10 MEQ IV SCH (11:11)
[2021-06-24] MEDS: KCL 10 MEQ IVPB 10 MEQ/100 ML INFUS.BAG IVPB SCH ×5 (11:33→18:04)
[2021-06-24] MEDS: SODIUM CHLORIDE 1,000 ML with POTASSIUM CHLORIDE 10 MEQ IV SCH (11:35)
[2021-06-24] MEDS: POTASSIUM CHLORIDE 10 MEQ in SODIUM CHLORIDE 1,000 ML IV SCH (14:02)
[2021-06-24 16:27] LABS: CALCIUM 7.5 mg/dL (8.5-10.1)
[2021-06-24 16:28] LABS: BLOOD UREA NITROGEN 9.2 mg/dL (7-18)
[2021-06-24 16:31] LABS: CREATININE 0.8 mg/dL (0.55-1.3)
[2021-06-24 22:17] LABS: CALCIUM 7.4 mg/dL (8.5-10.1)
[2021-06-24 22:18] LABS: BLOOD UREA NITROGEN 7.8 mg/dL (7-18)
[2021-06-24] MEDS: MAGNESIUM OXIDE 400 MG TABLET (FP) PO SCH (22:18)
[2021-06-24 22:21] LABS: CREATININE 0.8 mg/dL (0.55-1.3)
[2021-06-25] MEDS ORDERED: POTASSIUM CHLORIDE TABS 20 MEQ TABLET.ER (FP) PO ONE (01:22)
[2021-06-25 06:48] LABS: BASO % 0.8 % (0-2.0); EOS % 0.5 % (0-4.5); HEMATOCRIT 33.2 % (35.4-49); HEMOGLOBIN 11.6 GM/dL (11.7-16.9); LYMPH % 36.1 % (8-40); MCH 35.4 pg (25.7-33.7); MCHC 35.1 g/dl (32.0-35.9); MEAN CELL VOLUME 100.7 fl (80-96); MEAN PLT VOLUME 7.4 fl (7.5-11.1); MONO % 12.7 % (3.8-10.2); NEUT % 49.9 % (42.8-82.8); PLATELET COUNT 213 10^3/uL (134-434); RBC 3.29 M/mm3 (4.00-5.60); RDW 13.5 % (11.9-15.9); WHITE BLOOD COUNT 5.9 K/mm3 (4.0-10.0)
[2021-06-25] MEDS: POTASSIUM CHLORIDE 10 MEQ in SODIUM CHLORIDE 1,000 ML IV SCH (07:00)
[2021-06-25] MEDS ORDERED: KETOROLAC TROMETHAMINE 0.5% EYE DROP 1 DROP DROPS OS SCH ×2 (10:00→11:00)
[2021-06-25] MEDS: metoPROLOL SUCCINATE 25 MG TAB.SR.24H (FP) PO SCH (10:06)
[2021-06-25] MEDS: MAGNESIUM OXIDE 400 MG TABLET (FP) PO SCH ×2 (10:07→22:25)
[2021-06-25] MEDS: MOXIFLOXACIN HCL 0.5% OPHTHALMIC 3 ML BOTTLE OS SCH ×3 (14:40→22:27)
[2021-06-25] MEDS: KETOROLAC TROMETHAMINE 0.5% EYE DROP 1 DROP DROPS OS SCH (14:40)
[2021-06-25] MEDS ORDERED: PT OWN MED DRAWER 7, Y5N ONE (22:20)
[2021-06-25 23:06] LABS: HEP B CORE AB, TOT Negative (Negative)
[2021-06-26] MEDS: MOXIFLOXACIN HCL 0.5% OPHTHALMIC 3 ML BOTTLE OS SCH (06:58)
[2021-06-26] MEDS: metoPROLOL SUCCINATE 25 MG TAB.SR.24H (FP) PO SCH (10:09)
[2021-06-26] MEDS: MAGNESIUM OXIDE 400 MG TABLET (FP) PO SCH (10:09)
[2021-06-26] MEDS: ENOXAPARIN NA (PORCINE) 40 MG/0.4 ML DISP.SYRIN SQ SCH ×2 (10:10→10:19)
[2021-06-26] MEDS: KETOROLAC TROMETHAMINE 0.5% EYE DROP 1 DROP DROPS OS SCH (10:10)
[2021-06-26 12:33] LABS: CALCIUM 7.6 mg/dL (8.5-10.1)
[2021-06-26 12:34] LABS: ALBUMIN 1.8 g/dl (3.4-5.0); BLOOD UREA NITROGEN 3.4 mg/dL (7-18)
[2021-06-26 12:37] LABS: CREATININE 0.6 mg/dL (0.55-1.3)
[2021-06-26 12:38] LABS: BILIRUBIN,TOTAL 0.5 mg/dL (0.2-1); TOT PROT 5.5 g/dl (6.4-8.2)
[2021-06-26 15:09] VITALS: BP 117/71; PULSE 67; TEMP 98.2
== END 2021-06-26 14:30 | disposition home or self-care (01) | DRG 392 ==
LOC: JER 15:01 → JERBED 20:57 → J4W 06-22 20:19
PROVIDERS: ADMIT Internal Medicine; ATTEND Internal Medicine
DX: K52.9 Noninfective gastroenteritis and colitis, unspecified (principal); E87.1 Hypo-osmolality and hyponatremia; I24.8 Other forms of acute ischemic heart disease; I47.2 Ventricular tachycardia; I31.3 Pericardial effusion (noninflammatory); J90 Pleural effusion, not elsewhere classified; I48.91 Unspecified atrial fibrillation; I10 Essential (primary) hypertension; E86.0 Dehydration; E78.5 Hyperlipidemia, unspecified; I44.7 Left bundle-branch block, unspecified; M54.17 Radiculopathy, lumbosacral region; K42.9 Umbilical hernia without obstruction or gangrene; K21.9 Gastro-esophageal reflux disease without esophagitis; K57.90 Diverticulosis of intestine, part unspecified, without perforation or abscess without bleeding; M54.5 Low back pain; E88.09 Other disorders of plasma-protein metabolism, not elsewhere classified; R11.2 Nausea with vomiting, unspecified; K70.31 Alcoholic cirrhosis of liver with ascites; I48.0 Paroxysmal atrial fibrillation; R94.31 Abnormal electrocardiogram [ECG] [EKG]; E87.6 Hypokalemia; F12.10 Cannabis abuse, uncomplicated
CPT/HCPCS: 36415; 71045-TC-FY; 74177-TC; 76700-TC; 80048; 80053; 80307; 81003; 82105; 82272; 82550; 83516; 83540; 83550; 83605; 83690; 83735; 83874; 83935; 84100; 84295; 84300; 84443; 84484; 85025; 85610; 86038; 86140; 86704; 86706; 86707; 86708; 86709; 86803; 87086; 87340; 93005; 93010; 93306-TC; 97116-GP; 97161-GP; 99285-25; C9803; Q9967; U0003; U0005

== ENCOUNTER 2021-11-11 17:02 | Inpatient (IN) | payer BC, OTHER ==
[2021-11-11 18:55] LABS: EPI CELLS 3 /uL (0-25.1); HYALINE CASTS 0 /uL (0-3.1); URINE APPEARANCE CLEAR; URINE BACTERIA 123 /uL (0-1359); URINE BILIRUBIN NEGATIVE (NEGATIVE); URINE COLOR YELLOW; URINE GLUCOSE (UA) NEGATIVE (NEGATIVE); URINE KETONE NEGATIVE (NEGATIVE); URINE LEUK ESTERASE NEGATIVE (NEGATIVE); URINE NITRITE NEGATIVE (NEGATIVE); URINE PROTEIN 2+ (NEGATIVE); URINE RBC 8 /uL (0-23.9); URINE UROBILINOGEN 0.2 mg/dL (0.2-1.0); URINE WBC 2 /uL (0-25.8)
[2021-11-11 18:58] LABS: EOS % 0.2 % (0-4.5); HEMATOCRIT 28.2 % (35.4-49); HEMOGLOBIN 9.8 GM/dL (11.7-16.9); LYMPH % 14.6 % (8-40); MCH 33.9 pg (25.7-33.7); MCHC 34.9 g/dl (32.0-35.9); MEAN CELL VOLUME 97.2 fl (80-96); MEAN PLT VOLUME 6.6 fl (7.5-11.1); MONO % 11.7 % (3.8-10.2); NEUT % 72.5 % (42.8-82.8); PLATELET COUNT 519 10^3/uL (134-434); RDW 16.7 % (11.9-15.9); WHITE BLOOD COUNT 9.2 K/mm3 (4.0-10.0)
[2021-11-11 19:25] LABS: CALCIUM 8.5 mg/dL (8.5-10.1)
[2021-11-11 19:26] LABS: ALBUMIN 1.4 g/dl (3.4-5.0); BLOOD UREA NITROGEN 7.9 mg/dL (7-18); MAGNESIUM 1.5 mg/dL (1.8-2.4)
[2021-11-11 19:29] LABS: CREATININE 0.8 mg/dL (0.55-1.3); PHOSPHOROUS 3.2 mg/dL (2.5-4.9)
[2021-11-11 19:30] LABS: BILIRUBIN,TOTAL 0.5 mg/dL (0.2-1); TOT PROT 5.8 g/dl (6.4-8.2)
[2021-11-11 20:15] LABS: ACTIVATED PTT 31.2 SECONDS (25.2-36.5); INR 1.28 (0.83-1.09); PROTHROMBIN TIME (PATIENT) 14.4 SEC (9.7-13.0)
[2021-11-11 21:38] LABS: N-TERMINAL BNP 4228.7 pg/ml (5-125)
[2021-11-11] MEDS ORDERED: traMADol HCL 50 MG TABLET PO ONE (22:38)
[2021-11-11] MEDS ORDERED: traMADol HCL 50 MG TABLET ONE (23:26)
[2021-11-12] MEDS ORDERED: MAGNESIUM SULF 50% (8.12 MEQ/2 ML-1 GM VIAL) IVPB ONE ×2 (00:34→07:31)
[2021-11-12] MEDS ORDERED: VANCOMYCIN 1 GM in D5W (PRE-DOCKED) 1,000 MG/250 ML IVPB SCH ×2 (00:42→10:00)
[2021-11-12] MEDS ORDERED: FUROSEMIDE 40 MG/4 ML INJECTABLE VIAL ONE ×2 (01:31→06:31)
[2021-11-12] MEDS ORDERED: MAGNESIUM 1GM/D5W - 1 GM/100 ML IVPB IVPB ONE (01:32)
[2021-11-12] MEDS: FUROSEMIDE 40 MG/4 ML INJECTABLE VIAL IVPUSH SCH ×3 (01:39→14:18)
[2021-11-12] MEDS ORDERED: MAGNESIUM SULFATE IN WATER 2 GM/50 ML IVPB IVPB ONE (07:58)
[2021-11-12] MEDS: ENOXAPARIN NA (PORCINE) 40 MG/0.4 ML DISP.SYRIN SQ SCH (10:00)
[2021-11-12] MEDS ORDERED: ENOXAPARIN NA (PORCINE) 40 MG/0.4 ML DISP.SYRIN SQ ONE (10:09)
[2021-11-12] MEDS ORDERED: traMADol HCL 50 MG TABLET ONE (10:33)
[2021-11-12] MEDS: traMADol HCL 50 MG TABLET PO PRN ×2 (10:59→20:27)
[2021-11-12 11:50] LABS: HEMATOCRIT 28.2 % (35.4-49); HEMOGLOBIN 9.9 GM/dL (11.7-16.9); MCHC 34.9 g/dl (32.0-35.9); MEAN CELL VOLUME 97.3 fl (80-96); MEAN PLT VOLUME 6.9 fl (7.5-11.1); PLATELET COUNT 530 10^3/uL (134-434); RDW 16.9 % (11.9-15.9); RETICULOCYTES 2.29 % (0.5-1.5); WHITE BLOOD COUNT 7.1 K/mm3 (4.0-10.0)
[2021-11-12 12:06] LABS: MAGNESIUM 1.9 mg/dL (1.8-2.4)
[2021-11-12 12:08] LABS: ALBUMIN 1.3 g/dl (3.4-5.0); BLOOD UREA NITROGEN 7.7 mg/dL (7-18)
[2021-11-12 12:10] LABS: PHOSPHOROUS 3.4 mg/dL (2.5-4.9)
[2021-11-12 12:11] LABS: CREATININE 0.8 mg/dL (0.55-1.3)
[2021-11-12 12:12] LABS: TOT PROT 5.7 g/dl (6.4-8.2)
[2021-11-12 12:13] LABS: BILIRUBIN,TOTAL 0.4 mg/dL (0.2-1)
[2021-11-12 12:33] LABS: ERYTHROCYTE SEDIMENTATION RATE 105 mm/hr (0-20)
[2021-11-13] MEDS: traMADol HCL 50 MG TABLET PO PRN ×2 (03:45→12:14)
[2021-11-13] MEDS: FUROSEMIDE 40 MG/4 ML INJECTABLE VIAL IVPUSH SCH ×2 (05:38→13:54)
[2021-11-13] MEDS: ENOXAPARIN NA (PORCINE) 40 MG/0.4 ML DISP.SYRIN SQ SCH (09:26)
[2021-11-13] MEDS ORDERED: ACETAMINOPHEN 325 MG TABLET (FP) PO PRN ×2 (13:16→13:31)
[2021-11-13] MEDS: POTASSIUM CHLORIDE TABS 20 MEQ TABLET.ER (FP) PO SCH ×2 (13:54→23:22)
[2021-11-13 22:09] LABS: CALCIUM 8.2 mg/dL (8.5-10.1)
[2021-11-13 22:10] LABS: BLOOD UREA NITROGEN 7.7 mg/dL (7-18)
[2021-11-13 22:13] LABS: CREATININE 0.8 mg/dL (0.55-1.3)
[2021-11-13] MEDS: MELATONIN 5 MG TABLETS PO PRN (23:22)
[2021-11-14] MEDS ORDERED: POTASSIUM CHLORIDE ORAL LIQUID 20 MEQ/15 ML PO ONE (00:08)
[2021-11-14] MEDS: FUROSEMIDE 40 MG/4 ML INJECTABLE VIAL IVPUSH SCH ×2 (06:10→13:40)
[2021-11-14 08:48] LABS: BASO % 0.9 % (0-2.0); EOS % 0.6 % (0-4.5); HEMATOCRIT 27.7 % (35.4-49); HEMOGLOBIN 9.9 GM/dL (11.7-16.9); MCHC 35.6 g/dl (32.0-35.9); MEAN CELL VOLUME 98.2 fl (80-96); MEAN PLT VOLUME 7.3 fl (7.5-11.1); MONO % 12.8 % (3.8-10.2); NEUT % 62.7 % (42.8-82.8); PLATELET COUNT 491 10^3/uL (134-434); RBC 2.83 M/mm3 (4.00-5.60); RDW 16.5 % (11.9-15.9); WHITE BLOOD COUNT 5.8 K/mm3 (4.0-10.0)
[2021-11-14 08:56] LABS: ALBUMIN 1.4 g/dl (3.4-5.0); BLOOD UREA NITROGEN 7.2 mg/dL (7-18)
[2021-11-14 08:59] LABS: CALCIUM 8.3 mg/dL (8.5-10.1); CREATININE 0.7 mg/dL (0.55-1.3); MAGNESIUM 1.5 mg/dL (1.8-2.4)
[2021-11-14 09:00] LABS: PHOSPHOROUS 3.1 mg/dL (2.5-4.9)
[2021-11-14 09:02] LABS: TOT PROT 5.7 g/dl (6.4-8.2)
[2021-11-14 09:17] LABS: BILIRUBIN,TOTAL 0.4 mg/dL (0.2-1)
[2021-11-14] MEDS: ENOXAPARIN NA (PORCINE) 40 MG/0.4 ML DISP.SYRIN SQ SCH (10:56)
[2021-11-14] MEDS: POTASSIUM CHLORIDE TABS 20 MEQ TABLET.ER (FP) PO SCH (10:56)
[2021-11-14] MEDS ORDERED: MAGNESIUM SULF 50% (8.12 MEQ/2 ML-1 GM VIAL) IVPB ONE (11:15)
[2021-11-14] MEDS ORDERED: SPIRONOLACTONE 25 MG TABLET PO ONE (16:24)
[2021-11-14] MEDS ORDERED: ALBUMIN HUMAN 25% 12.5 GM/50 ML VIAL IVPB SCH (16:30)
[2021-11-14] MEDS: ALBUMIN HUMAN 25% 12.5 GM/50 ML VIAL IVPB SCH ×2 (19:16→22:07)
[2021-11-14] MEDS: MELATONIN 5 MG TABLETS PO PRN (22:10)
[2021-11-15] MEDS: ALBUMIN HUMAN 25% 12.5 GM/50 ML VIAL IVPB SCH (00:03)
[2021-11-15] MEDS: FUROSEMIDE 40 MG/4 ML INJECTABLE VIAL IVPUSH SCH ×2 (05:48→13:52)
[2021-11-15 06:28] LABS: ARTERIAL BLD GAS O2 SATURATION 95.9 % (95-98); ARTERIAL BLOOD GAS BASE EXCESS 8.9 mmol/L (-2-2); ARTERIAL BLOOD GAS PO2 69.9 mmHg (80-100)
[2021-11-15 06:37] LABS: ALLENS TEST POSITIVE
[2021-11-15 08:46] LABS: HEMATOCRIT 26.7 % (35.4-49); HEMOGLOBIN 9.2 GM/dL (11.7-16.9); MCH 33.8 pg (25.7-33.7); MCHC 34.3 g/dl (32.0-35.9); MEAN CELL VOLUME 98.7 fl (80-96); MEAN PLT VOLUME 7.5 fl (7.5-11.1); PLATELET COUNT 450 10^3/uL (134-434); RBC 2.71 M/mm3 (4.00-5.60); RDW 16.3 % (11.9-15.9); WHITE BLOOD COUNT 6.1 K/mm3 (4.0-10.0)
[2021-11-15 09:05] LABS: BLOOD UREA NITROGEN 6.3 mg/dL (7-18); CALCIUM 8.5 mg/dL (8.5-10.1)
[2021-11-15 09:06] LABS: MAGNESIUM 1.8 mg/dL (1.8-2.4)
[2021-11-15 09:09] LABS: CREATININE 0.7 mg/dL (0.55-1.3); PHOSPHOROUS 3.3 mg/dL (2.5-4.9)
[2021-11-15 09:10] LABS: BILIRUBIN,TOTAL 0.4 mg/dL (0.2-1)
[2021-11-15] MEDS: ENOXAPARIN NA (PORCINE) 40 MG/0.4 ML DISP.SYRIN SQ SCH (10:28)
[2021-11-15] MEDS ORDERED: SODIUM CHLORIDE 1 GM TABLET PO ONE (14:42)
[2021-11-15] MEDS ORDERED: POTASSIUM CHLORIDE TABS 20 MEQ TABLET.ER (FP) PO ONE (14:42)
[2021-11-16 08:31] LABS: HEMATOCRIT 28.3 % (35.4-49); HEMOGLOBIN 9.7 GM/dL (11.7-16.9); MCH 33.4 pg (25.7-33.7); MCHC 34.2 g/dl (32.0-35.9); MEAN CELL VOLUME 97.8 fl (80-96); MEAN PLT VOLUME 7.3 fl (7.5-11.1); PLATELET COUNT 438 10^3/uL (134-434); RBC 2.89 M/mm3 (4.00-5.60); RDW 16.3 % (11.9-15.9); WHITE BLOOD COUNT 6.1 K/mm3 (4.0-10.0)
[2021-11-16 08:50] LABS: ALBUMIN 1.7 g/dl (3.4-5.0)
[2021-11-16 08:51] LABS: BLOOD UREA NITROGEN 6.4 mg/dL (7-18); MAGNESIUM 1.6 mg/dL (1.8-2.4)
[2021-11-16 08:53] LABS: CREATININE 0.7 mg/dL (0.55-1.3)
[2021-11-16 08:54] LABS: PHOSPHOROUS 3.3 mg/dL (2.5-4.9)
[2021-11-16 08:55] LABS: BILIRUBIN,TOTAL 0.4 mg/dL (0.2-1); TOT PROT 5.9 g/dl (6.4-8.2)
[2021-11-16] MEDS ORDERED: metoPROLOL SUCCINATE 25 MG TAB.SR.24H (FP) PO SCH (10:00)
[2021-11-16] MEDS ORDERED: FUROSEMIDE 40 MG TABLET (FP) PO SCH (10:00)
[2021-11-16] MEDS: ENOXAPARIN NA (PORCINE) 40 MG/0.4 ML DISP.SYRIN SQ SCH (10:45)
[2021-11-16 15:03] VITALS: BP 108/65; PULSE 100; TEMP 98
[2021-11-16 16:17] VITALS: BMI 25.2
== END 2021-11-16 17:32 | disposition home health service (06) | DRG 433 ==
LOC: JER 17:02 → JERBED 22:00 → J8W 11-12 12:03
PROVIDERS: ADMIT Internal Medicine; ATTEND Internal Medicine
DX: K74.60 Unspecified cirrhosis of liver (principal); I42.4 Endocardial fibroelastosis; E87.3 Alkalosis; R18.8 Other ascites; E78.5 Hyperlipidemia, unspecified; I48.0 Paroxysmal atrial fibrillation; I44.7 Left bundle-branch block, unspecified; E87.6 Hypokalemia; M54.17 Radiculopathy, lumbosacral region; K42.9 Umbilical hernia without obstruction or gangrene; D64.9 Anemia, unspecified; E88.09 Other disorders of plasma-protein metabolism, not elsewhere classified; M48.00 Spinal stenosis, site unspecified; M54.50 Low back pain, unspecified; K21.9 Gastro-esophageal reflux disease without esophagitis; K57.90 Diverticulosis of intestine, part unspecified, without perforation or abscess without bleeding; I10 Essential (primary) hypertension; R01.1 Cardiac murmur, unspecified; E87.70 Fluid overload, unspecified; E86.1 Hypovolemia; Z96.611 Presence of right artificial shoulder joint; Z96.612 Presence of left artificial shoulder joint; M84.48XD Pathological fracture, other site, subsequent encounter for fracture with routine healing
CPT/HCPCS: 36415; 36600; 71045-TC-FY; 71250-TC; 80048; 80053; 80061; 81003; 82550; 82607; 82728; 82803; 83540; 83550; 83735; 83880; 84100; 84484; 85025; 85027; 85045; 85610; 85651; 85730; 86140; 87086; 93005; 93010; 93970-TC; 97116-GP; 97161-GP; 99285-25; C9803; P9047; U0003; U0005

== ENCOUNTER 2022-02-16 13:21 | Inpatient (IN) | payer BC, OTHER ==
[2022-02-16 14:43] LABS: VENOUS BASE EXCESS 7.7 mmol/L (-2-2); VENOUS O2 SATURATION 60.5 % (70-80); VENOUS PCO2 68.9 mmHg (38-52); VENOUS PH 7.335 (7.310-7.410)
[2022-02-16] MEDS ORDERED: FUROSEMIDE 40 MG/4 ML INJECTABLE VIAL IVPUSH ONE (14:53)
[2022-02-16 14:57] LABS: BASO % 0.7 % (0-2.0); EOS % 0.2 % (0-4.5); HEMATOCRIT 35.4 % (35.4-49); HEMOGLOBIN 11.9 GM/dL (11.7-16.9); LYMPH % 8.9 % (8-40); MCH 29.8 pg (25.7-33.7); MCHC 33.5 g/dl (32.0-35.9); MEAN CELL VOLUME 88.8 fl (80-96); MEAN PLT VOLUME 8.2 fl (7.5-11.1); MONO % 9.1 % (3.8-10.2); NEUT % 81.1 % (42.8-82.8); PLATELET COUNT 293 10^3/uL (134-434); RBC 3.99 M/mm3 (4.00-5.60); RDW 17.2 % (11.9-15.9); WHITE BLOOD COUNT 10.2 K/mm3 (4.0-10.0)
[2022-02-16] MEDS ORDERED: FUROSEMIDE 40 MG/4 ML INJECTABLE VIAL ONE (15:04)
[2022-02-16 15:14] LABS: CHLORIDE 82 mmol/L (98-107); SODIUM 122 mmol/L (136-145)
[2022-02-16 15:17] LABS: BLOOD UREA NITROGEN 44.5 mg/dL (7-18); CALCIUM 9.2 mg/dL (8.5-10.1)
[2022-02-16 15:18] LABS: ALBUMIN 1.9 g/dl (3.4-5.0); CO2 38 mmol/L (21-32); GLUCOSE,RANDOM 101 mg/dL (74-106); MAGNESIUM 2.2 mg/dL (1.8-2.4)
[2022-02-16 15:21] LABS: CREATININE 1.7 mg/dL (0.55-1.3); SGOT/AST 144 U/L (15-37)
[2022-02-16 15:22] LABS: BILIRUBIN,TOTAL 0.5 mg/dL (0.2-1); TOT PROT 6.9 g/dl (6.4-8.2)
[2022-02-16 15:24] LABS: ALK PHOS 90 U/L (45-117)
[2022-02-16 15:27] LABS: ANION GAP 3 MMOL/L (8-16); N-TERMINAL BNP 8640.7 pg/ml (5-125); SGPT/ALT 36 U/L (13-61)
[2022-02-16 16:41] LABS: INR 1.05 (0.83-1.09); PROTHROMBIN TIME (PATIENT) 12.1 SEC (9.7-13.0)
[2022-02-16 16:46] LABS: BLOOD UREA NITROGEN 42.8 mg/dL (7-18); CALCIUM 9.1 mg/dL (8.5-10.1)
[2022-02-16 16:50] LABS: CREATININE 1.6 mg/dL (0.55-1.3)
[2022-02-17 02:02] LABS: CALCIUM 9.8 mg/dL (8.5-10.1)
[2022-02-17 02:03] LABS: BLOOD UREA NITROGEN 49.9 mg/dL (7-18)
[2022-02-17 02:06] LABS: CREATININE 1.9 mg/dL (0.55-1.3)
[2022-02-17] MEDS: HEPARIN NA (PORCINE) 5,000 UNITS/ML 1ML VIAL SQ SCH ×3 (07:44→22:00)
[2022-02-17] MEDS ORDERED: ALBUTEROL SO4 2.5/IPRATROPIUM 0.5 INH SOL 3 ML VIAL.NEB. NEB ONE (08:23)
[2022-02-17] MEDS ORDERED: MAGNESIUM SULF 50% (8.12 MEQ/2 ML-1 GM VIAL) IVPB ONE (09:44)
[2022-02-17 10:09] LABS: MAGNESIUM 2.1 mg/dL (1.8-2.4)
[2022-02-17] MEDS: FOLIC ACID 1 MG TABLET (FP) PO SCH (10:38)
[2022-02-17] MEDS: KCL 10 MEQ IVPB 10 MEQ/100 ML INFUS.BAG IVPB SCH ×2 (10:38→13:00)
[2022-02-17] MEDS ORDERED: ALBUTEROL SO4 HFA INHALER IH PRN (10:55)
[2022-02-17 17:55] LABS: BF WBC & OTHER NUCLEATED CELLS 97 /mm3
[2022-02-17 18:11] LABS: BODY FLUID MACROPHAGES 12 %; BODY FLUID MONOCYTE 11 %
[2022-02-17] MEDS: FUROSEMIDE INJECTION 100 MG in SODIUM CHLORIDE 90 ML IVPB SCH (18:28)
[2022-02-17] MEDS ORDERED: ACETAMINOPHEN 325 MG TABLET (FP) PO ONE (21:21)
[2022-02-17] MEDS ORDERED: MELATONIN 5 MG TABLETS PO ONE (21:21)
[2022-02-17] MEDS ORDERED: hydrOXYzine PAMOATE 25 MG CAPSULE (FP) PO ONE (21:21)
[2022-02-17] MEDS: MOMETASONE FUROATE 220 MCG/IH INHALER IH SCH (22:00)
[2022-02-17] MEDS ORDERED: LORazepam 2 MG/ML SDV VIAL IVPUSH ONE (23:11)
[2022-02-18] MEDS ORDERED: LORazepam 2 MG/ML SDV VIAL IVPUSH ONE (01:48)
[2022-02-18 06:59] LABS: BASO % 0.2 % (0-2.0); HEMATOCRIT 33.7 % (35.4-49); HEMOGLOBIN 11.5 GM/dL (11.7-16.9); LYMPH % 7.5 % (8-40); MCH 30.4 pg (25.7-33.7); MEAN CELL VOLUME 89.3 fl (80-96); MEAN PLT VOLUME 8.3 fl (7.5-11.1); MONO % 6.1 % (3.8-10.2); NEUT % 86.2 % (42.8-82.8); PLATELET COUNT 289 10^3/uL (134-434); RBC 3.78 M/mm3 (4.00-5.60); RDW 17.3 % (11.9-15.9); WHITE BLOOD COUNT 12.7 K/mm3 (4.0-10.0)
[2022-02-18 07:18] LABS: BLOOD UREA NITROGEN 63.2 mg/dL (7-18)
[2022-02-18 07:19] LABS: ALBUMIN 1.5 g/dl (3.4-5.0); CALCIUM 8.8 mg/dL (8.5-10.1); MAGNESIUM 2.2 mg/dL (1.8-2.4)
[2022-02-18 07:21] LABS: CREATININE 2.5 mg/dL (0.55-1.3); PHOSPHOROUS 5.9 mg/dL (2.5-4.9)
[2022-02-18 07:23] LABS: BILIRUBIN,TOTAL 0.8 mg/dL (0.2-1)
[2022-02-18 07:27] LABS: TOT PROT 4.8 g/dl (6.4-8.2)
[2022-02-18] MEDS: HEPARIN NA (PORCINE) 5,000 UNITS/ML 1ML VIAL SQ SCH ×3 (07:50→21:24)
[2022-02-18] MEDS: FOLIC ACID 1 MG TABLET (FP) PO SCH (09:31)
[2022-02-18] MEDS: FUROSEMIDE INJECTION 100 MG in SODIUM CHLORIDE 90 ML IVPB SCH (09:33)
[2022-02-18] MEDS: ALBUMIN HUMAN 25% 100 ML VIAL IV SCH ×2 (12:12→17:11)
[2022-02-18] MEDS: MIDODRINE HCL 5 MG TABLET PO SCH ×2 (15:37→17:11)
[2022-02-18] MEDS: MOMETASONE FUROATE 220 MCG/IH INHALER IH SCH (21:24)
[2022-02-19] MEDS: ALBUMIN HUMAN 25% 100 ML VIAL IV SCH ×2 (00:30→05:29)
[2022-02-19] MEDS: HEPARIN NA (PORCINE) 5,000 UNITS/ML 1ML VIAL SQ SCH ×3 (06:55→22:25)
[2022-02-19 07:28] LABS: BASO % 0.3 % (0-2.0); HEMATOCRIT 31.4 % (35.4-49); HEMOGLOBIN 10.4 GM/dL (11.7-16.9); LYMPH % 11.6 % (8-40); MCH 29.8 pg (25.7-33.7); MEAN CELL VOLUME 90.2 fl (80-96); MEAN PLT VOLUME 8.2 fl (7.5-11.1); MONO % 6.5 % (3.8-10.2); NEUT % 81.6 % (42.8-82.8); PLATELET COUNT 280 10^3/uL (134-434); RBC 3.49 M/mm3 (4.00-5.60); RDW 17.2 % (11.9-15.9); WHITE BLOOD COUNT 10.6 K/mm3 (4.0-10.0)
[2022-02-19 07:48] LABS: BLOOD UREA NITROGEN 68.7 mg/dL (7-18); CALCIUM 9.6 mg/dL (8.5-10.1); MAGNESIUM 2.6 mg/dL (1.8-2.4)
[2022-02-19 07:51] LABS: CREATININE 2.9 mg/dL (0.55-1.3); PHOSPHOROUS 6.1 mg/dL (2.5-4.9)
[2022-02-19 07:53] LABS: BILIRUBIN,TOTAL 1.1 mg/dL (0.2-1); TOT PROT 5.9 g/dl (6.4-8.2)
[2022-02-19 08:58] LABS: ALBUMIN 3.1 g/dl (3.4-5.0)
[2022-02-19] MEDS: FOLIC ACID 1 MG TABLET (FP) PO SCH (11:12)
[2022-02-19] MEDS: MIDODRINE HCL 5 MG TABLET PO SCH ×2 (13:52→18:24)
[2022-02-19] MEDS: MOMETASONE FUROATE 220 MCG/IH INHALER IH SCH (22:26)
[2022-02-20] MEDS: HEPARIN NA (PORCINE) 5,000 UNITS/ML 1ML VIAL SQ SCH ×2 (06:27→21:16)
[2022-02-20 07:13] LABS: BASO % 0.5 % (0-2.0); EOS % 0.1 % (0-4.5); HEMATOCRIT 31.7 % (35.4-49); LYMPH % 11.5 % (8-40); MCH 30.9 pg (25.7-33.7); MCHC 34.7 g/dl (32.0-35.9); MEAN CELL VOLUME 88.8 fl (80-96); MONO % 6.6 % (3.8-10.2); NEUT % 81.3 % (42.8-82.8); PLATELET COUNT 307 10^3/uL (134-434); RBC 3.57 M/mm3 (4.00-5.60); RDW 17.2 % (11.9-15.9); WHITE BLOOD COUNT 8.5 K/mm3 (4.0-10.0)
[2022-02-20 07:33] LABS: CALCIUM 9.1 mg/dL (8.5-10.1)
[2022-02-20 07:34] LABS: BLOOD UREA NITROGEN 74.8 mg/dL (7-18); MAGNESIUM 2.2 mg/dL (1.8-2.4)
[2022-02-20 07:37] LABS: PHOSPHOROUS 5.2 mg/dL (2.5-4.9)
[2022-02-20 07:38] LABS: BILIRUBIN,TOTAL 0.8 mg/dL (0.2-1); TOT PROT 5.4 g/dl (6.4-8.2)
[2022-02-20 08:00] LABS: ALBUMIN 2.4 g/dl (3.4-5.0)
[2022-02-20] MEDS: MIDODRINE HCL 5 MG TABLET PO SCH ×3 (09:27→19:10)
[2022-02-20] MEDS: FOLIC ACID 1 MG TABLET (FP) PO SCH (09:27)
[2022-02-20] MEDS ORDERED: ACETAMINOPHEN 325 MG TABLET (FP) PO ONE (20:13)
[2022-02-20] MEDS: MOMETASONE FUROATE 220 MCG/IH INHALER IH SCH (21:17)
[2022-02-21] MEDS: HEPARIN NA (PORCINE) 5,000 UNITS/ML 1ML VIAL SQ SCH ×3 (06:20→21:28)
[2022-02-21 07:33] LABS: CALCIUM 9.1 mg/dL (8.5-10.1)
[2022-02-21 07:34] LABS: ALBUMIN 2.1 g/dl (3.4-5.0); BLOOD UREA NITROGEN 82.9 mg/dL (7-18); MAGNESIUM 2.4 mg/dL (1.8-2.4)
[2022-02-21 07:37] LABS: PHOSPHOROUS 4.6 mg/dL (2.5-4.9)
[2022-02-21 07:38] LABS: BASO % 0.6 % (0-2.0); EOS % 0.3 % (0-4.5); HEMATOCRIT 32.9 % (35.4-49); HEMOGLOBIN 11.2 GM/dL (11.7-16.9); LYMPH % 14.5 % (8-40); MCH 30.5 pg (25.7-33.7); MCHC 34.1 g/dl (32.0-35.9); MEAN CELL VOLUME 89.3 fl (80-96); MEAN PLT VOLUME 8.2 fl (7.5-11.1); MONO % 5.6 % (3.8-10.2); PLATELET COUNT 322 10^3/uL (134-434); RBC 3.69 M/mm3 (4.00-5.60); WHITE BLOOD COUNT 8.4 K/mm3 (4.0-10.0)
[2022-02-21 07:39] LABS: BILIRUBIN,TOTAL 0.7 mg/dL (0.2-1); TOT PROT 5.4 g/dl (6.4-8.2)
[2022-02-21] MEDS: FOLIC ACID 1 MG TABLET (FP) PO SCH (09:10)
[2022-02-21] MEDS: MIDODRINE HCL 5 MG TABLET PO SCH ×3 (09:10→17:16)
[2022-02-21 12:39] LABS: BF WBC & OTHER NUCLEATED CELLS 805 /mm3
[2022-02-21 13:21] LABS: BODY FLUID MONOCYTE 6 %
[2022-02-21 13:22] LABS: BODY FLUID MACROPHAGES 10 %; BODY FLUID MESOTHELIAL 6 %
[2022-02-21 14:28] LABS: EPI CELLS 16 /uL (0-25.1); HYALINE CASTS 4 /uL (0-3.1); URINE APPEARANCE CLOUDY; URINE BACTERIA >9,000 /uL (0-1359); URINE BILIRUBIN 1+ (NEGATIVE); URINE COLOR DK YELLOW; URINE GLUCOSE (UA) NEGATIVE (NEGATIVE); URINE KETONE TRACE (NEGATIVE); URINE LEUK ESTERASE NEGATIVE (NEGATIVE); URINE NITRITE NEGATIVE (NEGATIVE); URINE PROTEIN 3+ (NEGATIVE); URINE WBC 45 /uL (0-25.8)
[2022-02-21 14:53] LABS: URINE RBC 21.9 /uL (0-23.9); YEAST POSITIVE (NEGATIVE)
[2022-02-21] MEDS: MOMETASONE FUROATE 220 MCG/IH INHALER IH SCH (21:29)
[2022-02-22] MEDS: HEPARIN NA (PORCINE) 5,000 UNITS/ML 1ML VIAL SQ SCH ×3 (06:23→21:17)
[2022-02-22 07:26] LABS: BASO % 0.7 % (0-2.0); EOS % 0.2 % (0-4.5); HEMATOCRIT 34.4 % (35.4-49); HEMOGLOBIN 11.8 GM/dL (11.7-16.9); LYMPH % 12.4 % (8-40); MCH 30.4 pg (25.7-33.7); MCHC 34.3 g/dl (32.0-35.9); MEAN CELL VOLUME 88.8 fl (80-96); MEAN PLT VOLUME 7.9 fl (7.5-11.1); NEUT % 80.7 % (42.8-82.8); PLATELET COUNT 318 10^3/uL (134-434); RBC 3.87 M/mm3 (4.00-5.60); WHITE BLOOD COUNT 8.3 K/mm3 (4.0-10.0)
[2022-02-22 07:41] LABS: CALCIUM 8.8 mg/dL (8.5-10.1)
[2022-02-22 07:42] LABS: BLOOD UREA NITROGEN 79.3 mg/dL (7-18)
[2022-02-22 07:44] LABS: ALBUMIN 1.9 g/dl (3.4-5.0)
[2022-02-22 07:45] LABS: CREATININE 2.5 mg/dL (0.55-1.3)
[2022-02-22 07:47] LABS: BILIRUBIN,TOTAL 0.7 mg/dL (0.2-1); TOT PROT 5.1 g/dl (6.4-8.2)
[2022-02-22] MEDS: FOLIC ACID 1 MG TABLET (FP) PO SCH (11:35)
[2022-02-22] MEDS: MIDODRINE HCL 5 MG TABLET PO SCH ×2 (11:38→14:55)
[2022-02-22] MEDS ORDERED: ALBUMIN HUMAN 25% 12.5 GM/50 ML VIAL IV SCH (12:00)
[2022-02-22] MEDS: MOMETASONE FUROATE 220 MCG/IH INHALER IH SCH (21:23)
[2022-02-23] MEDS: HEPARIN NA (PORCINE) 5,000 UNITS/ML 1ML VIAL SQ SCH ×3 (06:34→21:39)
[2022-02-23 07:23] LABS: BASO % 0.6 % (0-2.0); EOS % 0.2 % (0-4.5); HEMATOCRIT 34.6 % (35.4-49); HEMOGLOBIN 11.6 GM/dL (11.7-16.9); LYMPH % 13.4 % (8-40); MCH 30.3 pg (25.7-33.7); MCHC 33.6 g/dl (32.0-35.9); MEAN CELL VOLUME 90.3 fl (80-96); MEAN PLT VOLUME 7.8 fl (7.5-11.1); MONO % 6.5 % (3.8-10.2); NEUT % 79.3 % (42.8-82.8); PLATELET COUNT 330 10^3/uL (134-434); RBC 3.83 M/mm3 (4.00-5.60); WHITE BLOOD COUNT 7.6 K/mm3 (4.0-10.0)
[2022-02-23] MEDS ORDERED: POTASSIUM CHLORIDE ORAL LIQUID 20 MEQ/15 ML PO ONE (07:44)
[2022-02-23 07:50] LABS: CALCIUM 9.3 mg/dL (8.5-10.1)
[2022-02-23 07:51] LABS: ALBUMIN 1.8 g/dl (3.4-5.0); BLOOD UREA NITROGEN 77.8 mg/dL (7-18); MAGNESIUM 2.1 mg/dL (1.8-2.4)
[2022-02-23 07:54] LABS: CREATININE 1.9 mg/dL (0.55-1.3); PHOSPHOROUS 3.1 mg/dL (2.5-4.9)
[2022-02-23 07:55] LABS: TOT PROT 5.3 g/dl (6.4-8.2)
[2022-02-23 07:56] LABS: BILIRUBIN,TOTAL 0.6 mg/dL (0.2-1)
[2022-02-23] MEDS: FOLIC ACID 1 MG TABLET (FP) PO SCH (10:09)
[2022-02-23] MEDS: MIDODRINE HCL 5 MG TABLET PO SCH ×2 (10:09→13:58)
[2022-02-23] MEDS ORDERED: ALBUMIN HUMAN 25% 12.5 GM/50 ML VIAL IV ONE (10:29)
[2022-02-23 16:08] LABS: BODY FLUID ALBUMIN 0.8 g/dL (Not Estab.)
[2022-02-23] MEDS: NYSTATIN 500,000 UNITS/5 ML SUSPENSION PO SCH (21:39)
[2022-02-23] MEDS: MOMETASONE FUROATE 220 MCG/IH INHALER IH SCH (21:40)
[2022-02-24] MEDS: NYSTATIN 500,000 UNITS/5 ML SUSPENSION PO SCH ×2 (03:28→06:42)
[2022-02-24] MEDS: HEPARIN NA (PORCINE) 5,000 UNITS/ML 1ML VIAL SQ SCH ×3 (06:42→22:16)
[2022-02-24] MEDS: MIDODRINE HCL 5 MG TABLET PO SCH ×3 (10:58→18:56)
[2022-02-24] MEDS: FOLIC ACID 1 MG TABLET (FP) PO SCH (10:58)
[2022-02-24] MEDS ORDERED: BACITRACIN 15 GM TUBE TOPICAL OINTMENT TP SCH (11:15)
[2022-02-24 12:25] LABS: BASO % 0.7 % (0-2.0); EOS % 0.4 % (0-4.5); HEMATOCRIT 34.1 % (35.4-49); HEMOGLOBIN 11.4 GM/dL (11.7-16.9); LYMPH % 15.1 % (8-40); MCH 30.2 pg (25.7-33.7); MCHC 33.4 g/dl (32.0-35.9); MEAN CELL VOLUME 90.2 fl (80-96); MEAN PLT VOLUME 7.5 fl (7.5-11.1); MONO % 8.5 % (3.8-10.2); NEUT % 75.3 % (42.8-82.8); PLATELET COUNT 351 10^3/uL (134-434); RBC 3.78 M/mm3 (4.00-5.60); RDW 17.4 % (11.9-15.9); WHITE BLOOD COUNT 6.4 K/mm3 (4.0-10.0)
[2022-02-24 12:52] LABS: CALCIUM 10.2 mg/dL (8.5-10.1)
[2022-02-24 12:53] LABS: MAGNESIUM 1.9 mg/dL (1.8-2.4)
[2022-02-24 12:57] LABS: CREATININE 1.3 mg/dL (0.55-1.3); PHOSPHOROUS 2.2 mg/dL (2.5-4.9)
[2022-02-24 12:58] LABS: BILIRUBIN,TOTAL 0.6 mg/dL (0.2-1); TOT PROT 5.5 g/dl (6.4-8.2)
[2022-02-24 13:12] LABS: ALBUMIN 2.2 g/dl (3.4-5.0)
[2022-02-24] MEDS ORDERED: ALBUMIN HUMAN 25% 12.5 GM/50 ML VIAL IV ONE (14:35)
[2022-02-24] MEDS: FLUCONAZOLE 100 MG TABLET (UD) PO SCH (15:18)
[2022-02-24] MEDS: NAPH,MB-DB/K PH,MBDB POWDER PACKET PO SCH ×2 (15:18→22:19)
[2022-02-24] MEDS: MOMETASONE FUROATE 220 MCG/IH INHALER IH SCH (22:18)
[2022-02-24 23:06] VITALS: BMI 18.1
[2022-02-25] MEDS: HEPARIN NA (PORCINE) 5,000 UNITS/ML 1ML VIAL SQ SCH ×3 (06:42→21:50)
[2022-02-25] MEDS: FLUCONAZOLE 100 MG TABLET (UD) PO SCH (10:03)
[2022-02-25] MEDS: MIDODRINE HCL 5 MG TABLET PO SCH ×2 (10:03→13:38)
[2022-02-25] MEDS: FOLIC ACID 1 MG TABLET (FP) PO SCH (10:03)
[2022-02-25] MEDS: VITAMIN B COMP W-C 1 EA TABLET (NEPHRO-VITE) PO SCH (12:50)
[2022-02-25] MEDS: MAG HYDROX/ALH/SMC/DPHA/LIDO 240 ML MOUTHWASH MM PRN (13:43)
[2022-02-25] MEDS: MOMETASONE FUROATE 220 MCG/IH INHALER IH SCH ×2 (21:53→22:06)
[2022-02-26] MEDS: HEPARIN NA (PORCINE) 5,000 UNITS/ML 1ML VIAL SQ SCH ×3 (05:44→21:37)
[2022-02-26 08:00] LABS: ALBUMIN 1.9 g/dl (3.4-5.0); BLOOD UREA NITROGEN 45.4 mg/dL (7-18); CALCIUM 9.8 mg/dL (8.5-10.1); MAGNESIUM 1.7 mg/dL (1.8-2.4)
[2022-02-26 08:03] LABS: PHOSPHOROUS 2.5 mg/dL (2.5-4.9)
[2022-02-26 08:04] LABS: CREATININE 1.1 mg/dL (0.55-1.3)
[2022-02-26 08:07] LABS: BILIRUBIN,TOTAL 0.5 mg/dL (0.2-1); TOT PROT 5.3 g/dl (6.4-8.2)
[2022-02-26] MEDS: MAG HYDROX/ALH/SMC/DPHA/LIDO 240 ML MOUTHWASH MM PRN ×2 (09:27→12:41)
[2022-02-26] MEDS: VITAMIN B COMP W-C 1 EA TABLET (NEPHRO-VITE) PO SCH (09:33)
[2022-02-26] MEDS: MIDODRINE HCL 5 MG TABLET PO SCH ×2 (09:34→16:08)
[2022-02-26] MEDS: FOLIC ACID 1 MG TABLET (FP) PO SCH (09:34)
[2022-02-26] MEDS: FLUCONAZOLE 100 MG TABLET (UD) PO SCH (09:35)
[2022-02-26] MEDS ORDERED: ALBUMIN HUMAN 25% 12.5 GM/50 ML VIAL IV ONE (12:30)
[2022-02-26] MEDS ORDERED: ALBUMIN HUMAN 25% 100 ML VIAL IV ONE (13:00)
[2022-02-26] MEDS: MOMETASONE FUROATE 220 MCG/IH INHALER IH SCH (21:39)
[2022-02-26] MEDS ORDERED: MAGNESIUM OXIDE 400 MG TABLET (FP) PO ONE (22:58)
[2022-02-27] MEDS: HEPARIN NA (PORCINE) 5,000 UNITS/ML 1ML VIAL SQ SCH ×3 (06:00→21:36)
[2022-02-27 08:08] LABS: ALBUMIN 2.2 g/dl (3.4-5.0)
[2022-02-27 08:09] LABS: BLOOD UREA NITROGEN 40.7 mg/dL (7-18); CALCIUM 10.1 mg/dL (8.5-10.1); MAGNESIUM 1.5 mg/dL (1.8-2.4)
[2022-02-27 08:12] LABS: CREATININE 0.9 mg/dL (0.55-1.3); PHOSPHOROUS 2.5 mg/dL (2.5-4.9)
[2022-02-27 08:14] LABS: BILIRUBIN,TOTAL 0.4 mg/dL (0.2-1); TOT PROT 5.2 g/dl (6.4-8.2)
[2022-02-27 08:32] LABS: BASO % 0.7 % (0-2.0); EOS % 0.1 % (0-4.5); HEMATOCRIT 34.3 % (35.4-49); HEMOGLOBIN 11.6 GM/dL (11.7-16.9); LYMPH % 27.2 % (8-40); MCH 30.2 pg (25.7-33.7); MCHC 33.9 g/dl (32.0-35.9); MEAN CELL VOLUME 89.2 fl (80-96); MEAN PLT VOLUME 7.6 fl (7.5-11.1); PLATELET COUNT 332 10^3/uL (134-434); RBC 3.85 M/mm3 (4.00-5.60); RDW 17.4 % (11.9-15.9); WHITE BLOOD COUNT 7.2 K/mm3 (4.0-10.0)
[2022-02-27] MEDS: FOLIC ACID 1 MG TABLET (FP) PO SCH (09:54)
[2022-02-27] MEDS: MIDODRINE HCL 5 MG TABLET PO SCH ×3 (09:55→17:22)
[2022-02-27] MEDS: VITAMIN B COMP W-C 1 EA TABLET (NEPHRO-VITE) PO SCH (09:55)
[2022-02-27] MEDS: FLUCONAZOLE 100 MG TABLET (UD) PO SCH (09:55)
[2022-02-27] MEDS: ALBUMIN HUMAN 25% 12.5 GM/50 ML VIAL IV SCH ×2 (13:34→15:22)
[2022-02-27] MEDS ORDERED: MAGNESIUM OXIDE 400 MG TABLET (FP) PO ONE (14:36)
[2022-02-27] MEDS: FUROSEMIDE 40 MG TABLET (FP) PO SCH (15:21)
[2022-02-27] MEDS: MOMETASONE FUROATE 220 MCG/IH INHALER IH SCH (21:36)
[2022-02-28] MEDS: FUROSEMIDE 40 MG TABLET (FP) PO SCH ×2 (05:55→14:56)
[2022-02-28] MEDS: HEPARIN NA (PORCINE) 5,000 UNITS/ML 1ML VIAL SQ SCH ×3 (05:55→21:46)
[2022-02-28 07:15] LABS: BASO % 0.8 % (0-2.0); EOS % 0.1 % (0-4.5); HEMOGLOBIN 12.3 GM/dL (11.7-16.9); LYMPH % 29.8 % (8-40); MCH 30.1 pg (25.7-33.7); MCHC 33.2 g/dl (32.0-35.9); MEAN CELL VOLUME 90.8 fl (80-96); MEAN PLT VOLUME 7.6 fl (7.5-11.1); MONO % 10.5 % (3.8-10.2); NEUT % 58.8 % (42.8-82.8); PLATELET COUNT 321 10^3/uL (134-434); RBC 4.08 M/mm3 (4.00-5.60); WHITE BLOOD COUNT 6.8 K/mm3 (4.0-10.0)
[2022-02-28 07:31] LABS: BLOOD UREA NITROGEN 37.4 mg/dL (7-18)
[2022-02-28 07:34] LABS: CALCIUM 10.3 mg/dL (8.5-10.1); MAGNESIUM 1.8 mg/dL (1.8-2.4)
[2022-02-28 07:36] LABS: ALBUMIN 2.3 g/dl (3.4-5.0)
[2022-02-28 07:37] LABS: CREATININE 0.9 mg/dL (0.55-1.3)
[2022-02-28 07:38] LABS: TOT PROT 5.3 g/dl (6.4-8.2)
[2022-02-28 07:41] LABS: BILIRUBIN,TOTAL 0.3 mg/dL (0.2-1)
[2022-02-28] MEDS: FLUCONAZOLE 100 MG TABLET (UD) PO SCH (10:58)
[2022-02-28] MEDS: FOLIC ACID 1 MG TABLET (FP) PO SCH (11:00)
[2022-02-28] MEDS: MIDODRINE HCL 5 MG TABLET PO SCH ×3 (11:00→17:36)
[2022-02-28] MEDS: VITAMIN B COMP W-C 1 EA TABLET (NEPHRO-VITE) PO SCH (11:02)
[2022-02-28 15:08] LABS: SARS-CoV-2 NAA Not Detected (Not Detected)
[2022-02-28] MEDS: MOMETASONE FUROATE 220 MCG/IH INHALER IH SCH (21:46)
[2022-03-01] MEDS: FUROSEMIDE 40 MG TABLET (FP) PO SCH ×2 (06:50→14:47)
[2022-03-01] MEDS: HEPARIN NA (PORCINE) 5,000 UNITS/ML 1ML VIAL SQ SCH ×3 (06:50→21:37)
[2022-03-01 07:32] LABS: HEMATOCRIT 36.7 % (35.4-49); HEMOGLOBIN 12.6 GM/dL (11.7-16.9); MCH 30.8 pg (25.7-33.7); MCHC 34.4 g/dl (32.0-35.9); MEAN CELL VOLUME 89.5 fl (80-96); MEAN PLT VOLUME 7.5 fl (7.5-11.1); PLATELET COUNT 349 10^3/uL (134-434); WHITE BLOOD COUNT 6.9 K/mm3 (4.0-10.0)
[2022-03-01 07:46] LABS: BLOOD UREA NITROGEN 36.3 mg/dL (7-18); CALCIUM 10.1 mg/dL (8.5-10.1); MAGNESIUM 1.7 mg/dL (1.8-2.4)
[2022-03-01] MEDS ORDERED: MAGNESIUM OXIDE 400 MG TABLET (FP) PO ONE (09:25)
[2022-03-01] MEDS ORDERED: POTASSIUM CHLORIDE TABS 20 MEQ TABLET.ER (FP) PO ONE (09:25)
[2022-03-01] MEDS: VITAMIN B COMP W-C 1 EA TABLET (NEPHRO-VITE) PO SCH (10:01)
[2022-03-01] MEDS: MIDODRINE HCL 5 MG TABLET PO SCH ×4 (10:01→18:04)
[2022-03-01] MEDS: FLUCONAZOLE 100 MG TABLET (UD) PO SCH (10:01)
[2022-03-01] MEDS: FOLIC ACID 1 MG TABLET (FP) PO SCH (10:01)
[2022-03-01] MEDS: MOMETASONE FUROATE 220 MCG/IH INHALER IH SCH (21:38)
[2022-03-02] MEDS: HEPARIN NA (PORCINE) 5,000 UNITS/ML 1ML VIAL SQ SCH ×3 (06:17→22:25)
[2022-03-02] MEDS: FUROSEMIDE 40 MG TABLET (FP) PO SCH ×2 (06:18→13:29)
[2022-03-02 07:35] LABS: CALCIUM 9.8 mg/dL (8.5-10.1)
[2022-03-02 07:36] LABS: BLOOD UREA NITROGEN 35.9 mg/dL (7-18); MAGNESIUM 1.8 mg/dL (1.8-2.4)
[2022-03-02 07:37] LABS: HEMATOCRIT 39.1 % (35.4-49); HEMOGLOBIN 13.1 GM/dL (11.7-16.9); MCH 30.1 pg (25.7-33.7); MCHC 33.5 g/dl (32.0-35.9); MEAN CELL VOLUME 90.1 fl (80-96); MEAN PLT VOLUME 7.8 fl (7.5-11.1); PLATELET COUNT 380 10^3/uL (134-434); RBC 4.34 M/mm3 (4.00-5.60); RDW 17.1 % (11.9-15.9); WHITE BLOOD COUNT 7.1 K/mm3 (4.0-10.0)
[2022-03-02 07:38] LABS: CREATININE 1.2 mg/dL (0.55-1.3); PHOSPHOROUS 2.9 mg/dL (2.5-4.9)
[2022-03-02] MEDS: FOLIC ACID 1 MG TABLET (FP) PO SCH (09:09)
[2022-03-02] MEDS: VITAMIN B COMP W-C 1 EA TABLET (NEPHRO-VITE) PO SCH (09:09)
[2022-03-02] MEDS: FLUCONAZOLE 100 MG TABLET (UD) PO SCH (09:09)
[2022-03-02] MEDS: MIDODRINE HCL 5 MG TABLET PO SCH ×3 (09:10→17:27)
[2022-03-02] MEDS: MOMETASONE FUROATE 220 MCG/IH INHALER IH SCH (22:25)
[2022-03-03] MEDS: HEPARIN NA (PORCINE) 5,000 UNITS/ML 1ML VIAL SQ SCH ×2 (06:10→13:58)
[2022-03-03] MEDS: FUROSEMIDE 40 MG TABLET (FP) PO SCH ×2 (06:10→13:58)
[2022-03-03 07:54] LABS: HEMATOCRIT 37.7 % (35.4-49); HEMOGLOBIN 12.8 GM/dL (11.7-16.9); MCH 30.2 pg (25.7-33.7); MCHC 33.9 g/dl (32.0-35.9); MEAN CELL VOLUME 89.1 fl (80-96); MEAN PLT VOLUME 7.9 fl (7.5-11.1); PLATELET COUNT 384 10^3/uL (134-434); RBC 4.24 M/mm3 (4.00-5.60); RDW 17.5 % (11.9-15.9); WHITE BLOOD COUNT 6.4 K/mm3 (4.0-10.0)
[2022-03-03 08:05] LABS: ALBUMIN 2.2 g/dl (3.4-5.0); CALCIUM 10.3 mg/dL (8.5-10.1)
[2022-03-03 08:07] LABS: BLOOD UREA NITROGEN 36.9 mg/dL (7-18); MAGNESIUM 1.8 mg/dL (1.8-2.4)
[2022-03-03 08:10] LABS: CREATININE 1.1 mg/dL (0.55-1.3)
[2022-03-03 08:12] LABS: BILIRUBIN,TOTAL 0.3 mg/dL (0.2-1); TOT PROT 5.7 g/dl (6.4-8.2)
[2022-03-03] MEDS ORDERED: SODIUM CHLORIDE 250 ML IV STA ×2 (08:50→20:41)
[2022-03-03] MEDS: VITAMIN B COMP W-C 1 EA TABLET (NEPHRO-VITE) PO SCH (09:26)
[2022-03-03] MEDS: MIDODRINE HCL 5 MG TABLET PO SCH ×3 (09:26→18:21)
[2022-03-03] MEDS: FOLIC ACID 1 MG TABLET (FP) PO SCH (09:26)
[2022-03-03 14:47] VITALS: BP 79/47; PULSE 101; TEMP 97.6
== END 2022-03-03 21:20 | DRG 291 ==
LOC: JER 13:21 → JERBED 16:39 → J4W 23:26 → OBSVTOIN 02-17 00:24 → J4W 02-19 12:09
PROVIDERS: ADMIT Internal Medicine; ATTEND Internal Medicine
PROC: 0W9B30Z Drainage of Left Pleural Cavity with Drainage Device, Percutaneous Approach (ICD-10-PCS; principal; 2022-02-17)
PROC: 0W9930Z Drainage of Right Pleural Cavity with Drainage Device, Percutaneous Approach (ICD-10-PCS; 2022-02-17)
DX: I13.0 Hypertensive heart and chronic kidney disease with heart failure and stage 1 through stage 4 chronic kidney disease, or unspecified chronic kidney disease (principal); J96.01 Acute respiratory failure with hypoxia; I50.33 Acute on chronic diastolic (congestive) heart failure; E87.1 Hypo-osmolality and hyponatremia; N17.9 Acute kidney failure, unspecified; J90 Pleural effusion, not elsewhere classified; B37.0 Candidal stomatitis; E87.3 Alkalosis; I24.8 Other forms of acute ischemic heart disease; J95.811 Postprocedural pneumothorax; I48.0 Paroxysmal atrial fibrillation; E78.5 Hyperlipidemia, unspecified; N18.9 Chronic kidney disease, unspecified; R94.5 Abnormal results of liver function studies; I44.7 Left bundle-branch block, unspecified; D64.9 Anemia, unspecified; K57.90 Diverticulosis of intestine, part unspecified, without perforation or abscess without bleeding; E87.6 Hypokalemia; E83.42 Hypomagnesemia; K21.9 Gastro-esophageal reflux disease without esophagitis; K44.9 Diaphragmatic hernia without obstruction or gangrene; M54.50 Low back pain, unspecified; E87.70 Fluid overload, unspecified; I44.0 Atrioventricular block, first degree; D21.9 Benign neoplasm of connective and other soft tissue, unspecified; K70.31 Alcoholic cirrhosis of liver with ascites; I25.10 Atherosclerotic heart disease of native coronary artery without angina pectoris; Z96.612 Presence of left artificial shoulder joint; Z96.611 Presence of right artificial shoulder joint; Z96.652 Presence of left artificial knee joint; Y84.8 Other medical procedures as the cause of abnormal reaction of the patient, or of later complication, without mention of misadventure at the time of the procedure
CPT/HCPCS: 32552; 32557; 36415; 71045-TC-FY; 71046-TC-FY; 76604-TC; 76705-TC; 76775-TC; 80048; 80053; 80061; 81003; 82042; 82140; 82150; 82550; 82803; 82945; 82962; 83615; 83735; 83880; 83986; 84100; 84157; 84439; 84443; 84478; 84484; 85025; 85027; 85379; 85610; 86850; 86900; 86901; 87070; 87075; 87086; 87102; 87116; 87205; 87206; 87210; 88108; 88305-TC; 93005; 93010; 93306-TC; 93970-TC; 94640; 94660; 97116-GP; 99285-25; C1729; C1769; C9803-CS; G0378; J1644; P9047; U0003; U0005

== ENCOUNTER 2022-04-10 16:02 | Inpatient (IN) | payer OTHER, BC ==
[2022-04-10 19:26] LABS: VENOUS BASE EXCESS 5.2 mmol/L (-2-2); VENOUS O2 SATURATION 60.2 % (70-80); VENOUS PCO2 52.4 mmHg (38-52); VENOUS PH 7.394 (7.310-7.410)
[2022-04-10 19:35] LABS: BASO % 0.2 % (0-2.0); HEMATOCRIT 35.2 % (35.4-49); LYMPH % 11.8 % (8-40); MCH 31.6 pg (25.7-33.7); MCHC 34.1 g/dl (32.0-35.9); MEAN CELL VOLUME 92.6 fl (80-96); MEAN PLT VOLUME 7.7 fl (7.5-11.1); MONO % 6.1 % (3.8-10.2); NEUT % 81.9 % (42.8-82.8); PLATELET COUNT 345 10^3/uL (134-434); RDW 16.9 % (11.9-15.9); WHITE BLOOD COUNT 7.4 K/mm3 (4.0-10.0)
[2022-04-10 19:43] LABS: INR 0.98 (0.83-1.09); PROTHROMBIN TIME (PATIENT) 11.3 SEC (9.7-13.0)
[2022-04-10 19:46] LABS: ACTIVATED PTT 26.4 SECONDS (25.2-36.5); CHLORIDE 94 mmol/L (98-107); SODIUM 133 mmol/L (136-145)
[2022-04-10 19:48] LABS: ALBUMIN 1.6 g/dl (3.4-5.0); ANION GAP 7 MMOL/L (8-16); CALCIUM 9.2 mg/dL (8.5-10.1); CO2 33 mmol/L (21-32); GLUCOSE,RANDOM 111 mg/dL (74-106)
[2022-04-10 19:49] LABS: BLOOD UREA NITROGEN 23.6 mg/dL (7-18)
[2022-04-10 19:51] LABS: CREATININE 0.9 mg/dL (0.55-1.3); SGOT/AST 30 U/L (15-37)
[2022-04-10 19:52] LABS: SGPT/ALT 18 U/L (13-61)
[2022-04-10 19:54] LABS: ALK PHOS 106 U/L (45-117); BILIRUBIN,TOTAL 0.2 mg/dL (0.2-1)
[2022-04-10] MEDS ORDERED: FUROSEMIDE 40 MG TABLET (FP) PO ONE (21:05)
[2022-04-10] MEDS ORDERED: FUROSEMIDE 40 MG/4 ML INJECTABLE VIAL IVPUSH ONE (21:23)
[2022-04-10] MEDS ORDERED: POLYETHYLENE GLYCOL (HEALTHYLAX) 3350 17 GM PACKET PO PRN (21:24)
[2022-04-10] MEDS ORDERED: ACETAMINOPHEN 325 MG TABLET (FP) PO PRN (21:24)
[2022-04-10] MEDS ORDERED: ASPIRIN 81 MG CHEWABLE TABLETS PO ONE (21:26)
[2022-04-10] MEDS ORDERED: ASPIRIN 81 MG CHEWABLE TABLETS ONE (23:09)
[2022-04-10] MEDS ORDERED: HEPARIN NA (PORCINE) 5,000 UNITS/ML 1ML VIAL ONE (23:09)
[2022-04-10] MEDS ORDERED: FUROSEMIDE 40 MG/4 ML INJECTABLE VIAL ONE (23:09)
[2022-04-10] MEDS: HEPARIN NA (PORCINE) 5,000 UNITS/ML 1ML VIAL SQ SCH (23:52)
[2022-04-11] MEDS ORDERED: ALBUTEROL SO4 HFA INHALER IH PRN (02:25)
[2022-04-11] MEDS ORDERED: guaiFENesin/D-M SUGAR-FREE/ACLHOL-FREE 118 ML BOTTLE PO PRN (02:26)
[2022-04-11] MEDS: HEPARIN NA (PORCINE) 5,000 UNITS/ML 1ML VIAL SQ SCH ×3 (06:04→23:12)
[2022-04-11] MEDS ORDERED: SODIUM CHLORIDE 1 GM TABLET PO SCH (10:00)
[2022-04-11] MEDS ORDERED: FUROSEMIDE 40 MG TABLET (FP) PO SCH (10:00)
[2022-04-11] MEDS ORDERED: FUROSEMIDE 40 MG TABLET (FP) ONE (10:52)
[2022-04-11] MEDS: MIDODRINE HCL 5 MG TABLET PO SCH ×3 (10:52→17:44)
[2022-04-11] MEDS: predniSONE 20 MG TABLET (UD) PO SCH (10:52)
[2022-04-11] MEDS: FOLIC ACID 1 MG TABLET (FP) PO SCH (10:52)
[2022-04-11] MEDS ORDERED: predniSONE 20 MG TABLET (UD) ONE (10:52)
[2022-04-11] MEDS ORDERED: FOLIC ACID 1 MG TABLET (FP) ONE (10:52)
[2022-04-11 11:38] LABS: BASO % 0.7 % (0-2.0); HEMATOCRIT 36.9 % (35.4-49); HEMOGLOBIN 12.5 GM/dL (11.7-16.9); LYMPH % 20.7 % (8-40); MCH 31.5 pg (25.7-33.7); MCHC 33.9 g/dl (32.0-35.9); MEAN CELL VOLUME 92.9 fl (80-96); MEAN PLT VOLUME 7.8 fl (7.5-11.1); MONO % 7.7 % (3.8-10.2); NEUT % 70.9 % (42.8-82.8); PLATELET COUNT 328 10^3/uL (134-434); RBC 3.97 M/mm3 (4.00-5.60); RDW 17.1 % (11.9-15.9); WHITE BLOOD COUNT 9.1 K/mm3 (4.0-10.0)
[2022-04-11] MEDS ORDERED: ACETAMINOPHEN 325 MG TABLET (FP) ONE (11:41)
[2022-04-11] MEDS ORDERED: ALBUTEROL SO4 HFA INHALER IH ONE (11:41)
[2022-04-11 12:05] LABS: CALCIUM 9.4 mg/dL (8.5-10.1)
[2022-04-11 12:06] LABS: MAGNESIUM 1.5 mg/dL (1.8-2.4)
[2022-04-11 12:10] LABS: CREATININE 0.8 mg/dL (0.55-1.3)
[2022-04-11 12:35] LABS: ALBUMIN 1.6 g/dl (3.4-5.0)
[2022-04-11 12:36] LABS: BILIRUBIN,DIRECT 0.1 mg/dL (0.0-0.2)
[2022-04-11 12:37] LABS: BILIRUBIN,TOTAL 0.2 mg/dL (0.2-1)
[2022-04-11] MEDS ORDERED: HEPARIN NA (PORCINE) 5,000 UNITS/ML 1ML VIAL ONE ×2 (16:40→23:06)
[2022-04-12] MEDS: HEPARIN NA (PORCINE) 5,000 UNITS/ML 1ML VIAL SQ SCH ×3 (06:53→21:58)
[2022-04-12] MEDS: FOLIC ACID 1 MG TABLET (FP) PO SCH (09:59)
[2022-04-12] MEDS: PANTOPRAZOLE 20 MG TABLET PO SCH (09:59)
[2022-04-12] MEDS: MIDODRINE HCL 5 MG TABLET PO SCH ×3 (09:59→18:16)
[2022-04-12] MEDS: predniSONE 20 MG TABLET (UD) PO SCH (09:59)
[2022-04-12] MEDS ORDERED: FUROSEMIDE 40 MG/4 ML INJECTABLE VIAL IVPUSH SCH (10:00)
[2022-04-12 11:43] LABS: BASO % 0.4 % (0-2.0); EOS % 0.1 % (0-4.5); HEMATOCRIT 37.9 % (35.4-49); HEMOGLOBIN 12.6 GM/dL (11.7-16.9); LYMPH % 21.4 % (8-40); MCH 31.1 pg (25.7-33.7); MCHC 33.3 g/dl (32.0-35.9); MEAN CELL VOLUME 93.4 fl (80-96); MEAN PLT VOLUME 8.7 fl (7.5-11.1); NEUT % 71.1 % (42.8-82.8); PLATELET COUNT 329 10^3/uL (134-434); RBC 4.06 M/mm3 (4.00-5.60); RDW 16.9 % (11.9-15.9); WHITE BLOOD COUNT 9.4 K/mm3 (4.0-10.0)
[2022-04-12 11:50] LABS: INR 0.97 (0.83-1.09); PROTHROMBIN TIME (PATIENT) 11.2 SEC (9.7-13.0)
[2022-04-12 12:13] LABS: BLOOD UREA NITROGEN 26.2 mg/dL (7-18); CALCIUM 9.1 mg/dL (8.5-10.1)
[2022-04-12 12:14] LABS: ALBUMIN 1.5 g/dl (3.4-5.0)
[2022-04-12 12:17] LABS: BILIRUBIN,DIRECT 0.1 mg/dL (0.0-0.2); CREATININE 0.8 mg/dL (0.55-1.3)
[2022-04-12 12:18] LABS: TOT PROT 5.7 g/dl (6.4-8.2)
[2022-04-12 12:19] LABS: BILIRUBIN,TOTAL 0.3 mg/dL (0.2-1)
[2022-04-12] MEDS ORDERED: POTASSIUM CHLORIDE TABS 20 MEQ TABLET.ER (FP) PO ONE (13:10)
[2022-04-12] MEDS ORDERED: ALBUTEROL SO4 2.5/IPRATROPIUM 0.5 INH SOL 3 ML VIAL.NEB. NEB PRN (14:19)
[2022-04-12] MEDS: FUROSEMIDE 40 MG/4 ML INJECTABLE VIAL IVPUSH SCH (15:06)
[2022-04-12] MEDS: ALBUMIN HUMAN 25% 100 ML VIAL IV SCH ×2 (15:49→18:42)
[2022-04-13] MEDS: HEPARIN NA (PORCINE) 5,000 UNITS/ML 1ML VIAL SQ SCH ×3 (07:00→22:14)
[2022-04-13] MEDS: FUROSEMIDE 40 MG/4 ML INJECTABLE VIAL IVPUSH SCH ×2 (07:00→14:40)
[2022-04-13] MEDS: MIDODRINE HCL 5 MG TABLET PO SCH ×3 (09:18→17:58)
[2022-04-13] MEDS: FOLIC ACID 1 MG TABLET (FP) PO SCH (09:18)
[2022-04-13] MEDS: PANTOPRAZOLE 20 MG TABLET PO SCH (09:18)
[2022-04-13] MEDS: predniSONE 20 MG TABLET (UD) PO SCH (09:18)
[2022-04-13 11:57] LABS: CALCIUM 9.2 mg/dL (8.5-10.1)
[2022-04-13 11:58] LABS: BLOOD UREA NITROGEN 25.4 mg/dL (7-18)
[2022-04-13 12:01] LABS: CREATININE 0.8 mg/dL (0.55-1.3)
[2022-04-13 17:06] LABS: SARS-CoV-2 NAA Not Detected (Not Detected)
[2022-04-14] MEDS: FUROSEMIDE 40 MG/4 ML INJECTABLE VIAL IVPUSH SCH ×2 (06:37→14:50)
[2022-04-14] MEDS: HEPARIN NA (PORCINE) 5,000 UNITS/ML 1ML VIAL SQ SCH ×3 (06:41→23:34)
[2022-04-14] MEDS: MIDODRINE HCL 5 MG TABLET PO SCH ×3 (09:20→18:17)
[2022-04-14] MEDS: PANTOPRAZOLE 20 MG TABLET PO SCH (09:21)
[2022-04-14] MEDS: predniSONE 20 MG TABLET (UD) PO SCH (09:21)
[2022-04-14] MEDS: FOLIC ACID 1 MG TABLET (FP) PO SCH (09:21)
[2022-04-14] MEDS: ALBUMIN HUMAN 25% 100 ML VIAL IV SCH (11:18)
[2022-04-14] MEDS ORDERED: CHLORHEXIDINE GLUCONATE 4% CLEANSER FOR DECOLONIZATION TP SCH (22:00)
[2022-04-14] MEDS ORDERED: MUPIROCIN 2% TOPICAL OINTMENT FOR DECOLONIZATION NS SCH (22:00)
[2022-04-15] MEDS: ALBUMIN HUMAN 25% 100 ML VIAL IV SCH (00:30)
[2022-04-15] MEDS: FUROSEMIDE 40 MG/4 ML INJECTABLE VIAL IVPUSH SCH ×2 (07:17→13:28)
[2022-04-15] MEDS: HEPARIN NA (PORCINE) 5,000 UNITS/ML 1ML VIAL SQ SCH ×3 (07:17→21:38)
[2022-04-15] MEDS ORDERED: ALBUTEROL SO4 HFA INHALER IH PRN ×2 (07:39→12:01)
[2022-04-15] MEDS ORDERED: guaiFENesin/D-M SUGAR-FREE/ACLHOL-FREE 5 ML UNIT DOSE PO PRN ×2 (07:39→12:01)
[2022-04-15] MEDS ORDERED: ALBUTEROL SO4 2.5/IPRATROPIUM 0.5 INH SOL 3 ML VIAL.NEB. NEB PRN ×2 (07:39→12:01)
[2022-04-15] MEDS ORDERED: ACETAMINOPHEN 325 MG TABLET (FP) PO PRN ×2 (07:39→12:01)
[2022-04-15] MEDS ORDERED: POLYETHYLENE GLYCOL (HEALTHYLAX) 3350 17 GM PACKET PO PRN ×2 (07:39→12:01)
[2022-04-15] MEDS ORDERED: PANTOPRAZOLE 20 MG TABLET PO SCH (10:00)
[2022-04-15] MEDS ORDERED: MUPIROCIN 2% TOPICAL OINTMENT FOR DECOLONIZATION NS SCH (10:00)
[2022-04-15] MEDS ORDERED: predniSONE 20 MG TABLET (UD) PO SCH (10:00)
[2022-04-15] MEDS ORDERED: FOLIC ACID 1 MG TABLET (FP) PO SCH (10:00)
[2022-04-15] MEDS ORDERED: MIDODRINE HCL 5 MG TABLET PO SCH (10:00)
[2022-04-15] MEDS ORDERED: ALBUMIN HUMAN 25% 100 ML VIAL IV SCH (10:00)
[2022-04-15] MEDS: MIDODRINE HCL 5 MG TABLET PO SCH ×2 (13:28→17:15)
[2022-04-15] MEDS ORDERED: HEPARIN NA (PORCINE) 5,000 UNITS/ML 1ML VIAL SQ SCH (14:00)
[2022-04-15] MEDS ORDERED: FUROSEMIDE 40 MG/4 ML INJECTABLE VIAL IVPUSH SCH (14:00)
[2022-04-15] MEDS ORDERED: CHLORHEXIDINE GLUCONATE 4% CLEANSER FOR DECOLONIZATION TP SCH (22:00)
[2022-04-16] MEDS: FUROSEMIDE 40 MG/4 ML INJECTABLE VIAL IVPUSH SCH ×2 (06:04→14:16)
[2022-04-16] MEDS: HEPARIN NA (PORCINE) 5,000 UNITS/ML 1ML VIAL SQ SCH ×2 (06:04→21:19)
[2022-04-16] MEDS: FOLIC ACID 1 MG TABLET (FP) PO SCH (09:08)
[2022-04-16] MEDS: MIDODRINE HCL 5 MG TABLET PO SCH ×3 (09:08→17:25)
[2022-04-16] MEDS: PANTOPRAZOLE 20 MG TABLET PO SCH (09:08)
[2022-04-16] MEDS: predniSONE 20 MG TABLET (UD) PO SCH (09:08)
[2022-04-16 14:09] LABS: CALCIUM 9.6 mg/dL (8.5-10.1)
[2022-04-16 14:10] LABS: BLOOD UREA NITROGEN 26.1 mg/dL (7-18)
[2022-04-16 14:13] LABS: CREATININE 0.8 mg/dL (0.55-1.3)
[2022-04-17] MEDS: FUROSEMIDE 40 MG/4 ML INJECTABLE VIAL IVPUSH SCH ×2 (06:43→16:01)
[2022-04-17] MEDS: predniSONE 20 MG TABLET (UD) PO SCH (10:49)
[2022-04-17] MEDS: PANTOPRAZOLE 20 MG TABLET PO SCH (10:49)
[2022-04-17] MEDS: MIDODRINE HCL 5 MG TABLET PO SCH ×3 (10:49→18:14)
[2022-04-17] MEDS: FOLIC ACID 1 MG TABLET (FP) PO SCH (10:49)
[2022-04-17 19:37] LABS: BF WBC & OTHER NUCLEATED CELLS 49 /mm3; BODY FLUID MACROPHAGES 53 %; BODY FLUID MESOTHELIAL 18 %
[2022-04-17] MEDS: HEPARIN NA (PORCINE) 5,000 UNITS/ML 1ML VIAL SQ SCH (21:42)
[2022-04-18] MEDS: FUROSEMIDE 40 MG/4 ML INJECTABLE VIAL IVPUSH SCH (06:37)
[2022-04-18] MEDS: predniSONE 20 MG TABLET (UD) PO SCH (09:36)
[2022-04-18] MEDS: HEPARIN NA (PORCINE) 5,000 UNITS/ML 1ML VIAL SQ SCH ×2 (09:36→21:12)
[2022-04-18] MEDS: FOLIC ACID 1 MG TABLET (FP) PO SCH (09:36)
[2022-04-18] MEDS: PANTOPRAZOLE 20 MG TABLET PO SCH (09:36)
[2022-04-18] MEDS: MIDODRINE HCL 5 MG TABLET PO SCH ×3 (09:36→17:39)
[2022-04-18 11:07] VITALS: BMI 19.2
[2022-04-18] MEDS: TORSEMIDE 20 MG TABLET (FP) PO SCH (14:26)
[2022-04-19 01:44] LABS: BLOOD UREA NITROGEN 35.7 mg/dL (7-18); CALCIUM 8.7 mg/dL (8.5-10.1); MAGNESIUM 1.2 mg/dL (1.8-2.4)
[2022-04-19 01:49] LABS: BILIRUBIN,TOTAL 0.4 mg/dL (0.2-1); TOT PROT 5.1 g/dl (6.4-8.2)
[2022-04-19] MEDS ORDERED: MAGNESIUM SULF 50% (8.12 MEQ/2 ML-1 GM VIAL) IVPB ONE (02:03)
[2022-04-19] MEDS ORDERED: POTASSIUM CHLORIDE TABS 20 MEQ TABLET.ER (FP) PO ONE (02:06)
[2022-04-19 02:15] LABS: ALBUMIN 1.8 g/dl (3.4-5.0)
[2022-04-19] MEDS ORDERED: MAGNESIUM SULFATE IN WATER 2 GM/50 ML IVPB IVPB ONE (02:30)
[2022-04-19] MEDS: TORSEMIDE 20 MG TABLET (FP) PO SCH ×2 (06:54→15:38)
[2022-04-19] MEDS: HEPARIN NA (PORCINE) 5,000 UNITS/ML 1ML VIAL SQ SCH ×3 (09:10→21:22)
[2022-04-19] MEDS: MIDODRINE HCL 5 MG TABLET PO SCH ×3 (09:10→18:47)
[2022-04-19] MEDS: FOLIC ACID 1 MG TABLET (FP) PO SCH (09:11)
[2022-04-19] MEDS: PANTOPRAZOLE 20 MG TABLET PO SCH (09:11)
[2022-04-19] MEDS: predniSONE 20 MG TABLET (UD) PO SCH (09:11)
[2022-04-19] MEDS: POTASSIUM CHLORIDE TABS 10 MEQ TABLET.ER (FP) PO SCH ×2 (09:13→21:22)
[2022-04-19] MEDS: MAGNESIUM OXIDE 400 MG TABLET (FP) PO SCH ×2 (09:13→21:22)
[2022-04-19 11:03] LABS: BLOOD UREA NITROGEN 35.8 mg/dL (7-18); MAGNESIUM 1.7 mg/dL (1.8-2.4)
[2022-04-19 11:06] LABS: CREATININE 0.9 mg/dL (0.55-1.3)
[2022-04-20] MEDS: TORSEMIDE 20 MG TABLET (FP) PO SCH ×2 (06:00→13:27)
[2022-04-20] MEDS: MIDODRINE HCL 5 MG TABLET PO SCH ×3 (09:10→17:15)
[2022-04-20] MEDS: PANTOPRAZOLE 20 MG TABLET PO SCH (09:10)
[2022-04-20] MEDS: predniSONE 20 MG TABLET (UD) PO SCH (09:10)
[2022-04-20] MEDS: HEPARIN NA (PORCINE) 5,000 UNITS/ML 1ML VIAL SQ SCH ×2 (09:10→21:14)
[2022-04-20] MEDS: MAGNESIUM OXIDE 400 MG TABLET (FP) PO SCH ×2 (09:10→21:14)
[2022-04-20] MEDS: POTASSIUM CHLORIDE TABS 10 MEQ TABLET.ER (FP) PO SCH ×2 (09:10→21:15)
[2022-04-20] MEDS: FOLIC ACID 1 MG TABLET (FP) PO SCH (09:10)
[2022-04-20 14:08] LABS: BODY FLUID ALBUMIN 0.9 g/dL (Not Estab.)
[2022-04-21] MEDS: TORSEMIDE 20 MG TABLET (FP) PO SCH ×5 (05:53→16:47)
[2022-04-21] MEDS: HEPARIN NA (PORCINE) 5,000 UNITS/ML 1ML VIAL SQ SCH ×2 (09:59→21:14)
[2022-04-21] MEDS: PANTOPRAZOLE 20 MG TABLET PO SCH (09:59)
[2022-04-21] MEDS: MIDODRINE HCL 5 MG TABLET PO SCH ×3 (09:59→17:01)
[2022-04-21] MEDS: MAGNESIUM OXIDE 400 MG TABLET (FP) PO SCH ×2 (09:59→21:13)
[2022-04-21] MEDS: predniSONE 20 MG TABLET (UD) PO SCH (09:59)
[2022-04-21] MEDS: POTASSIUM CHLORIDE TABS 10 MEQ TABLET.ER (FP) PO SCH ×2 (09:59→21:13)
[2022-04-21] MEDS: FOLIC ACID 1 MG TABLET (FP) PO SCH (09:59)
[2022-04-22] MEDS: FOLIC ACID 1 MG TABLET (FP) PO SCH (09:59)
[2022-04-22] MEDS: PANTOPRAZOLE 20 MG TABLET PO SCH (09:59)
[2022-04-22] MEDS: predniSONE 20 MG TABLET (UD) PO SCH (09:59)
[2022-04-22] MEDS: TORSEMIDE 20 MG TABLET (FP) PO SCH ×2 (09:59→17:54)
[2022-04-22] MEDS: POTASSIUM CHLORIDE TABS 10 MEQ TABLET.ER (FP) PO SCH ×2 (09:59→21:09)
[2022-04-22] MEDS: HEPARIN NA (PORCINE) 5,000 UNITS/ML 1ML VIAL SQ SCH ×2 (09:59→21:19)
[2022-04-22] MEDS: MAGNESIUM OXIDE 400 MG TABLET (FP) PO SCH ×2 (09:59→21:09)
[2022-04-22] MEDS: MIDODRINE HCL 5 MG TABLET PO SCH ×3 (09:59→17:54)
[2022-04-22 12:00] LABS: BLOOD UREA NITROGEN 39.2 mg/dL (7-18); CALCIUM 9.2 mg/dL (8.5-10.1)
[2022-04-22 12:03] LABS: CREATININE 0.9 mg/dL (0.55-1.3)
[2022-04-23] MEDS ORDERED: MAG HYDROX/AL HYDROX/SIMETH 30 ML UNIT-DOSE CUP PO ONE (00:14)
[2022-04-23] MEDS: POTASSIUM CHLORIDE TABS 10 MEQ TABLET.ER (FP) PO SCH ×2 (10:04→21:51)
[2022-04-23] MEDS: MIDODRINE HCL 5 MG TABLET PO SCH ×3 (10:04→17:19)
[2022-04-23] MEDS: predniSONE 20 MG TABLET (UD) PO SCH (10:04)
[2022-04-23] MEDS: MAGNESIUM OXIDE 400 MG TABLET (FP) PO SCH ×2 (10:04→21:52)
[2022-04-23] MEDS: FOLIC ACID 1 MG TABLET (FP) PO SCH (10:04)
[2022-04-23] MEDS: PANTOPRAZOLE 20 MG TABLET PO SCH (10:04)
[2022-04-23] MEDS: HEPARIN NA (PORCINE) 5,000 UNITS/ML 1ML VIAL SQ SCH ×2 (10:04→21:51)
[2022-04-23] MEDS: TORSEMIDE 20 MG TABLET (FP) PO SCH ×2 (10:05→13:47)
[2022-04-24] MEDS: TORSEMIDE 20 MG TABLET (FP) PO SCH ×2 (07:28→13:10)
[2022-04-24] MEDS: MIDODRINE HCL 5 MG TABLET PO SCH ×3 (09:42→17:09)
[2022-04-24] MEDS: FOLIC ACID 1 MG TABLET (FP) PO SCH (09:43)
[2022-04-24] MEDS: MAGNESIUM OXIDE 400 MG TABLET (FP) PO SCH ×2 (09:43→21:06)
[2022-04-24] MEDS: PANTOPRAZOLE 20 MG TABLET PO SCH (09:44)
[2022-04-24] MEDS: predniSONE 20 MG TABLET (UD) PO SCH (09:44)
[2022-04-24] MEDS: POTASSIUM CHLORIDE TABS 10 MEQ TABLET.ER (FP) PO SCH ×2 (09:44→21:06)
[2022-04-24] MEDS: HEPARIN NA (PORCINE) 5,000 UNITS/ML 1ML VIAL SQ SCH ×2 (09:45→21:06)
[2022-04-25] MEDS: TORSEMIDE 20 MG TABLET (FP) PO SCH ×2 (05:33→13:49)
[2022-04-25] MEDS: POTASSIUM CHLORIDE TABS 10 MEQ TABLET.ER (FP) PO SCH ×2 (09:50→21:38)
[2022-04-25] MEDS: FOLIC ACID 1 MG TABLET (FP) PO SCH (09:50)
[2022-04-25] MEDS: predniSONE 20 MG TABLET (UD) PO SCH (09:51)
[2022-04-25] MEDS: MAGNESIUM OXIDE 400 MG TABLET (FP) PO SCH ×2 (09:51→21:38)
[2022-04-25] MEDS: PANTOPRAZOLE 20 MG TABLET PO SCH (09:51)
[2022-04-25] MEDS: MIDODRINE HCL 5 MG TABLET PO SCH ×3 (09:52→18:05)
[2022-04-25 11:50] LABS: ALBUMIN 1.8 g/dl (3.4-5.0); BLOOD UREA NITROGEN 40.7 mg/dL (7-18); CALCIUM 9.1 mg/dL (8.5-10.1)
[2022-04-25 11:59] LABS: BILIRUBIN,TOTAL 0.7 mg/dL (0.2-1); TOT PROT 5.6 g/dl (6.4-8.2)
[2022-04-26] MEDS: TORSEMIDE 20 MG TABLET (FP) PO SCH ×2 (06:37→14:20)
[2022-04-26] MEDS: MIDODRINE HCL 5 MG TABLET PO SCH ×3 (10:09→17:34)
[2022-04-26] MEDS: POTASSIUM CHLORIDE TABS 10 MEQ TABLET.ER (FP) PO SCH ×2 (10:10→21:51)
[2022-04-26] MEDS: PANTOPRAZOLE 20 MG TABLET PO SCH (10:10)
[2022-04-26] MEDS: MAGNESIUM OXIDE 400 MG TABLET (FP) PO SCH ×2 (10:10→21:50)
[2022-04-26] MEDS: FOLIC ACID 1 MG TABLET (FP) PO SCH (10:10)
[2022-04-26] MEDS: predniSONE 20 MG TABLET (UD) PO SCH (10:10)
[2022-04-27] MEDS: TORSEMIDE 20 MG TABLET (FP) PO SCH ×2 (08:45→14:00)
[2022-04-27] MEDS: MAGNESIUM OXIDE 400 MG TABLET (FP) PO SCH ×2 (09:46→21:01)
[2022-04-27] MEDS: MIDODRINE HCL 5 MG TABLET PO SCH ×3 (09:46→17:22)
[2022-04-27] MEDS: PANTOPRAZOLE 20 MG TABLET PO SCH (09:46)
[2022-04-27] MEDS: FOLIC ACID 1 MG TABLET (FP) PO SCH (09:46)
[2022-04-27] MEDS: POTASSIUM CHLORIDE TABS 10 MEQ TABLET.ER (FP) PO SCH ×2 (09:46→21:01)
[2022-04-27] MEDS: predniSONE 20 MG TABLET (UD) PO SCH (09:46)
[2022-04-28] MEDS: TORSEMIDE 20 MG TABLET (FP) PO SCH (06:55)
[2022-04-28] MEDS: POTASSIUM CHLORIDE TABS 10 MEQ TABLET.ER (FP) PO SCH (09:10)
[2022-04-28] MEDS: FOLIC ACID 1 MG TABLET (FP) PO SCH (09:10)
[2022-04-28] MEDS: MAGNESIUM OXIDE 400 MG TABLET (FP) PO SCH (09:11)
[2022-04-28] MEDS: MIDODRINE HCL 5 MG TABLET PO SCH (09:11)
[2022-04-28] MEDS: predniSONE 20 MG TABLET (UD) PO SCH (09:11)
[2022-04-28] MEDS: PANTOPRAZOLE 20 MG TABLET PO SCH (09:11)
[2022-04-28 09:16] VITALS: BP 119/77; PULSE 91; TEMP 97.7
== END 2022-04-28 12:23 | disposition home or self-care (01) | DRG 291 ==
LOC: JER 16:02 → JERBED 20:52 → J4W 04-12 04:00 → JICU 04-14 19:39 → J4S 04-15 13:18
PROVIDERS: ADMIT Hospitalist; ATTEND Family Medicine
PROC: 0W9B3ZZ Drainage of Left Pleural Cavity, Percutaneous Approach (ICD-10-PCS; principal; 2022-04-17)
PROC: 0W9B3ZZ Drainage of Left Pleural Cavity, Percutaneous Approach (ICD-10-PCS; 2022-04-19)
DX: I11.0 Hypertensive heart disease with heart failure (principal); I50.33 Acute on chronic diastolic (congestive) heart failure; E87.1 Hypo-osmolality and hyponatremia; J98.11 Atelectasis; J90 Pleural effusion, not elsewhere classified; J93.9 Pneumothorax, unspecified; I48.0 Paroxysmal atrial fibrillation; E78.5 Hyperlipidemia, unspecified; I44.7 Left bundle-branch block, unspecified; D21.9 Benign neoplasm of connective and other soft tissue, unspecified; J44.9 Chronic obstructive pulmonary disease, unspecified; E53.8 Deficiency of other specified B group vitamins; K44.9 Diaphragmatic hernia without obstruction or gangrene; R59.9 Enlarged lymph nodes, unspecified; I25.10 Atherosclerotic heart disease of native coronary artery without angina pectoris; R60.0 Localized edema; R77.8 Other specified abnormalities of plasma proteins; K29.70 Gastritis, unspecified, without bleeding; K70.31 Alcoholic cirrhosis of liver with ascites; K57.90 Diverticulosis of intestine, part unspecified, without perforation or abscess without bleeding; F32.A Depression, unspecified; R13.11 Dysphagia, oral phase; E83.42 Hypomagnesemia; E87.70 Fluid overload, unspecified; E86.1 Hypovolemia; I44.0 Atrioventricular block, first degree; M54.59 Other low back pain; F43.20 Adjustment disorder, unspecified; D64.9 Anemia, unspecified; Z96.611 Presence of right artificial shoulder joint; Z96.652 Presence of left artificial knee joint; Z96.612 Presence of left artificial shoulder joint; Z91.14 Patient's other noncompliance with medication regimen
CPT/HCPCS: 36415; 71045-TC-FY; 71046-TC-FY; 71250-TC; 76700-TC; 76942; 80048; 80053; 80076; 82042; 82150; 82465; 82803; 82945; 83615; 83735; 83880; 83986; 84157; 84478; 84484; 85025; 85610; 85730; 87070; 87075; 87102; 87116; 87205; 87206; 87210; 88108; 88305-TC; 93005; 93010; 93970-TC; 94010; 94761; 97116-GP; 97162-GP; 99285-25; C9803-CS; J1644; U0003; U0005